=== PATIENT | male | born 1960 | race Caucasian/White ===

== ENCOUNTER 2017-11-09 23:00 | Inpatient (IN) | payer MEDICARE, MEDICAID ==
--- NOTE | 2017-11-09 23:28 | ED Physician Chart ---
ED Chief Complaint/HPI - Patient Information Date Seen:: 11/09/17 Time Seen:: 23:22 Chief Complaint:: Coffee ground emesis History of Present Illness:: 57 yo male was recently admitted to [facility] for ALOC. However, patient refused treatment and was discharged from the hospital to SNF today. At SNF, patient developed coffee ground emesis twice and was brought by BLS to ER for further evaluation and management. At ER, the patient did not have emesis. Allergies:: Allergies Allergy/AdvReac Type Severity Reaction Status Date / Time No Known Allergies Allergy Verified 11/09/17 23:04 Vitals:: Vital Signs - 8 hr 11/09/17 23:04 Temp 97.1 F HR 94 RR 18 BP 141/51 O2 Sat % 100 ED Review of Systems - Review of Systems General/Constitutional: No fever, No chills Skin: No bruising Head: No headache Eyes: No pain ENT: No nasal drainage Neck: No neck pain Cardio Vascular: No chest pain Pulmonary: No SOB GI: Vomiting Musculoskeletal: Bone or joint pain Neurological: Other (abnormal posture) ED Past Medical History - Past Medical History Past Medical History: HTN, 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), ESRD (dependent on renal dialysis), Seizures, Thyroid disorder, Other ( Hyperparathyroidism, chronic anemia) Social History: Non Smoker, No Alcohol, No Drug Use Surgical History: Cholecystectomy, other (vascular surgeries) Family Medical History - Family Member Mother History Unknown: Yes ED Physical Exam - Physical Examination Other Gen/Cons comments:: Abnormal posture Head: Atraumatic Eyes: PERRL Skin: No ecchymosis ENMT: Nasal exam nl Other Neck comments:: stiff neck Other Respiratory comments:: B/L rhonchi Cardio Vascular: RRR, No murmur, gallop, rubs, NL S1 S2 GI: Nondistended Other GI comments:: Tenderness Other Extremities comments:: AV fistula active at right inguinal area, old AV fistula on bilateral arms. Other Neuro/Psych comments:: Oriented to self only ED Labs/Radiology/EKG Results - Radiology Results Results: CXR: no consolidation ED Assessment - Assessment General Assessment: Hematemesis Leukocytosis UTI Anemia ESRD on dialysis Assessment/Comments:: CBC, CMP, UA CXR, EKG CT abdomen Rocephimiriam Pisanoyl Admit to med surg for further evaluation and management ED Septic Shock - . Is Septic Shock (SBP<90, OR Lactate>4 mmol\L) present?: No - <6hrs of presentation: Vital Signs: Vital Signs - 8 hr 11/09/17 23:04 Temp 97.1 F HR 94 RR 18 BP 141/51 O2 Sat % 100 ED Reassessment (Disposition) - Reassessment Reassessment Condition:: Improved - Patient Disposition Discharge/Transfer:: Acute Care w/in this hosp Admitting Medical Physician:: Ryan Swan
[2017-11-09 23:29] LABS: HEMATOCRIT 27.1 % (41.0-60); MANUAL DIFF REQUIRED? YES; MEAN CELL VOLUME 95.4 fl (80-99); MEAN CORPUSCULAR HGB CONC 36.7 pg (28.0-36.0); PLATELET COUNT 229 Th/cmm (150-400); RED BLOOD COUNT 2.84 Mil/cmm (4.30-5.70); RED CELL DISTRIBUTION WIDTH 15.3 % (11.5-20.0)
[2017-11-09 23:44] LABS: WHITE BLOOD COUNT 14.4 Th/cmm (4.8-10.8)
[2017-11-09] MEDS ORDERED: cefTRIAXone 1 GM in Sodium Chloride 0.9% 50 ML IV ONE (23:46)
[2017-11-09] MEDS ORDERED: metroNIDAZOLE 500mg/NS 100mL 500 MG/100 ML BAG IV ONE (23:46)
[2017-11-09 23:57] LABS: ALBUMIN 3.8 gm/dL (4.2-5.5); ANION GAP 24.7 (7.0-16.0); BILIRUBIN,TOTAL 0.3 mg/dL (0.3-1.0); CALCIUM SERUM 10.1 mg/dL (8.6-10.3); CARBON DIOXIDE 21.7 mEq/L (21.0-31.0); GFR AFRICAN-AMERICAN 4.4 ml/min (>90); GFR NON AFRICAN-AMERICAN 3.6 ml/min; POTASSIUM SERUM 5.4 mEq/L (3.5-5.1); TOTAL PROTEIN,SERUM 7.7 gm/dL (6.0-8.3)
[2017-11-10 00:05] LABS: URINE MICROSCOPIC INDICATED? YES; URINE SOURCE RANDOM
[2017-11-10 00:07] LABS: URINE BILIRUBIN NEGATIVE (NEGATIVE); URINE BLOOD LARGE (NEGATIVE); URINE GLUCOSE (UA) 250 mg/dL (NEGATIVE); URINE KETONE NEGATIVE (NEGATIVE); URINE LEUKOCYTE ESTERASE SMALL (NEGATIVE); URINE NITRATE NEGATIVE (NEGATIVE); URINE PROTEIN >=300 mg/dL (NEGATIVE); URINE UROBILINOGEN 0.2 E.U./dL (0.2 - 1.0)
[2017-11-10 00:08] LABS: URINE CLARITY CLOUDY (CLEAR); URINE COLOR YELLOW
[2017-11-10 00:25] LABS: URINE BACTERIA FEW /hpf (NONE SEEN); URINE EPITHELIAL CELLS OCCASIONAL /lpf (FEW)
[2017-11-10 00:26] LABS: URINE OTHER CASTS 0-2 /LPF (NONE SEEN)
[2017-11-10 00:27] LABS: BAND NEUTROPHILE 2 % (0-10); LYMPHOCYTE 7 % (20-50); NEUTROPHILS 90 % (40-80); TOTAL CELLS COUNTED 100
[2017-11-10 00:28] LABS: MONOCYTE 1 % (2-10); PLATELET ESTIMATE ADEQUATE (NORMAL)
[2017-11-10 01:02] LABS: INR 0.97 (0.5-1.4); PROTHROMBIN TIME (TEST) 10.1 SECONDS (9.5-11.5)
[2017-11-10] MEDS ORDERED: metroNIDAZOLE 500mg/NS 100mL 500 MG/100 ML BAG IV ONE (01:05)
[2017-11-10 06:04] VITALS: BP 146/42
--- NOTE | 2017-11-10 08:09 | Diagnostic Imaging Report ---
CT abdomen and pelvis without intravenous contrast Indication: Abdominal pain, coffee ground emesis Comparison: None, Technique: Axial images were obtained from the lung bases to the bilateral proximal femurs without IV contrast. Coronal reconstructions were made. total DLP: 396, CTDI 7.7 FINDINGS: Exam is limited due to motion. Hypoventilatory atelectatic changes of the lung bases are noted. Assessment of solid organs is limited due to lack of IV contrast. No evidence of focal hepatic lesions. The patient is status post cholecystectomy. No focal splenic lesions. Splenic artery calcifications are noted. Limited assessment of the pancreas demonstrates no obvious focal lesions. Pancreatic atrophy is noted. No focal adrenal lesions. Bilateral renal cysts are noted in addition low-density lesions too small to characterize and suggestive of cysts. No hydronephrosis. Bilateral renal calcifications are noted. Bilateral renal atrophy is noted. The urinary bladder is underdistended, limiting its evaluation. Mild prominence of the urinary bladder wall. Heavy atherosclerotic vascular disease is noted. There is a vascular stent seen within the right common iliac vein. Right groin Vascular graft is noted. Under distention versus bowel wall thickening of the ascending colon is noted. No evidence of bowel obstruction. No free fluid or free air. No evidence of appendicitis. Small hiatal hernia seen with wall thickening seen in this region. Degenerative changes of the spine are noted. There is generalized abnormal bony mineralization. Multiple Schmorl's nodes are noted. IMPRESSION: No evidence of bowel obstruction. Under distention versus bowel wall thickening of the ascending colon. Inflammatory process/colitis cannot be excluded. Small hiatal hernia with wall thickening seen in this region. Inflammatory or infiltrative process cannot be excluded Clinical correlation recommended. Underdistended urinary bladder limiting its evaluation. There is suggestion of mild thickening of urinary bladder wall. Inflammatory processes/UTI cannot be excluded. Please correlate with clinical findings. Heavy atherosclerotic vascular disease. Evidence of prior cholecystectomy. Bilateral renal atrophy and bilateral renal cysts. Right iliac vein stent and partially visualized right lower extremity arterial graft. Abnormal bony mineralization which may be due to chronic dialysis and renal osteodystrophy. Final results were administered to the referring team on 11/11/2015 at 8:00 AM.
--- NOTE | 2017-11-10 08:16 | Diagnostic Imaging Report ---
Portable chest x-ray HISTORY: Cough The heart is enlarged. Atherosclerotic calcification seen in the aorta. No acute focal pulmonary processes. A vascular stent is noted in the right subclavian region. IMPRESSION: 1. No acute pulmonary processes 2. Cardiomegaly with atherosclerotic vascular changes
[2017-11-10] MEDS ORDERED: Pantoprazole 40 mg EC Tab PO SCH ×2 (09:00→17:00)
[2017-11-10] MEDS: Vitamin B Complex w/Vitamin C Tab PO SCH (09:53)
[2017-11-10] MEDS: Atorvastatin Calcium 10 MG TAB PO SCH (09:53)
[2017-11-10] MEDS: Aspirin 81mg Chewable Tab PO SCH (09:53)
[2017-11-10 10:48] LABS: BASOPHILE ABSOLUTE 0.1 Th/cumm (0-0.2); HEMOGLOBIN 9.9 gm/dL (12-16); LYMPHOCYTE ABSOLUTE 0.8 Th/cmm (1.5-3.0); MEAN CELL VOLUME 96.5 fl (80-99); MEAN CORPUSCULAR HEMOGLOBIN 31.8 pg (26.0-30.0); MEAN PLATELET VOLUME 9.2 fl; MONOCYTE ABSOLUTE 0.7 Th/cmm (0.3-1.0); NEUTROPHILE ABSOLUTE 11.2 Th/cmm (1.8-8.0); PLATELET COUNT 201 Th/cmm (150-400); RED BLOOD COUNT 3.11 Mil/cmm (4.30-5.70); RED CELL DISTRIBUTION WIDTH 14.9 % (11.5-20.0)
[2017-11-10 10:51] LABS: WHITE BLOOD COUNT 12.8 Th/cmm (4.8-10.8)
[2017-11-10 11:03] LABS: ALBUMIN 3.6 gm/dL (4.2-5.5); ANION GAP 25.1 (7.0-16.0); BILIRUBIN,TOTAL 0.3 mg/dL (0.3-1.0); CALCIUM SERUM 9.9 mg/dL (8.6-10.3); CARBON DIOXIDE 19.3 mEq/L (21.0-31.0); GFR AFRICAN-AMERICAN 4.1 ml/min (>90); GFR NON AFRICAN-AMERICAN 3.4 ml/min; POTASSIUM SERUM 5.4 mEq/L (3.5-5.1); TOTAL PROTEIN,SERUM 7.2 gm/dL (6.0-8.3)
[2017-11-10 11:19] LABS: TOTAL CELLS COUNTED 100
[2017-11-10 11:20] LABS: BAND NEUTROPHILE 2 % (0-10); LYMPHOCYTE 13 % (20-50); NEUTROPHILS 85 % (40-80)
--- NOTE | 2017-11-10 12:52 | History and Physical ---
History of Present Illness - HPI Chief Complaint: Coffe ground hemesis HPI: Patient was send to [facility] due to ALOC, but he refused treatment he was send back to SNF and had 2 coffee ground hemesis. He was send to ER for Eval. During ER examination Patient did not had Hemesis but was found Leukocytosis and UTI Vital Signs: Last Vital Signs Temp 98.2 F 11/10/17 12:00 Pulse 88 11/10/17 12:00 Resp 17 11/10/17 12:00 BP 157/64 11/10/17 12:00 Pulse Ox 97 11/10/17 12:00 Past Medical History Cardiovascular: Report: CAD, CHF, HTN Pulmonary: Report: No Pertinent Hx HAND CARVER: Report: Dementia GI: Report: Other (Coffe ground hemesis) Psych: Report: Depression Musculoskeletal: Report: Weakness Rheumatologic: Report: No pertinent Hx Infectious Disease: Report: No Pertinent Hx Renal/: Report: Other (ESRD) Endocrine: Report: Diabetes, Hypothyroidism Dermatology: Report: No Pertinent Hx - Past Surgical History Past Surgical History: Other (AV shunt) Family Medical History - Family Member Mother History Unknown: Yes Social History Smoke: No Alcohol: None Drugs: None [facility] Domestic Violence: Negative - Medications Home Medications: Home Medication Medication Instructions Recorded Type Aspirin 81 mg PO DAILY 11/09/17 History Atorvastatin Calcium [Lipitor] 20 mg PO DAILY 11/09/17 History Cinacalcet HCl [Sensipar] 60 mg PO DAILY 11/09/17 History Folic Acid/Vit Bcomp,C 1 tab PO DAILY 11/09/17 History [Nephro-Alcon Tablet] Hydralazine HCl 50 mg PO BID 11/09/17 History Isosorbide Dinitrate 20 mg PO DAILY 11/09/17 History Metoclopramide [Reglan] 5 mg PO TID PRN 11/09/17 History Metoprolol Tartrate 25 mg PO BID 11/09/17 History Mirtazapine [Remeron] 7.5 mg PO HS 11/09/17 History Pantoprazole [Protonix] 40 mg PO DAILY 11/09/17 History amLODIPine Besylate [Norvasc*] 10 mg PO DAILY 11/09/17 History - Allergies Allergies/Adverse Reactions: Allergies Allergy/AdvReac Type Severity Reaction Status Date / Time No Known Allergies Allergy Verified 11/09/17 23:04 Review of Systems - Review of Systems Constitutional: Report: No Significant Eyes: Report: No Significant ENT: Report: No Significant Respiratory: Report: No Significant Cardiovascular: Report: No Significant Gastrointestinal: Report: Vomiting Genitourinary: Report: No Significant Musculoskeletal: Report: Other (Muscle weakness) Skin: Report: No Significant Neurological: Report: Weakness, Other (Patient is confused) Physical Exam - Physical Exam HEENT: Report: Ears Nose Throat within normal limits Neck: Report: Within normal limits Cardiovascular Systems: Report: Regular, Rate and Rhythm Respiratory: Report: Breath Sounds are within normal limits Abdomen: Report: Non-tender to palpation Back: Report: Inspection of back is within normal limits. Extremities: Report: Non-tender to palpation. Skin: Report: Color of skin is within normal limits, Warm Neuro/Psych: Report: Other (Patient is confused, not oriented) - Lab Results All Lab Results last 24 hours: Laboratory Results - last 24 hr 11/10/17 11/10/17 11/10/17 10:39 10:39 10:39 WBC 12.8 H RBC 3.11 L Hgb 9.9 L Hct 30.0 L MCV 96.5 MCH 31.8 H MCHC Differential 33.0 RDW 14.9 Plt Count 201 MPV 9.2 Neutrophils % FLOOR INSTALLATION MECHANIC Band Neutrophils % 2 Lymphocytes % FLOOR INSTALLATION MECHANIC Monocytes % FLOOR INSTALLATION MECHANIC Eosinophils % FLOOR INSTALLATION MECHANIC Basophils % FLOOR INSTALLATION MECHANIC Neutrophils (Manual) 85 H Lymphocytes 13 L Sodium 140 Potassium 5.4 H Chloride 101 Carbon Dioxide 19.3 L Anion Gap 25.1 H BUN 76 H Creatinine 15.8 H* Est GFR ( Amer) 4.1 Est GFR (Non-Af Amer) 3.4 BUN/Creatinine Ratio 4.8 Glucose 79 Calcium 9.9 Total Bilirubin 0.3 AST 26 ALT 17 Alkaline Phosphatase 105 H Total Protein 7.2 Albumin 3.6 L Globulin 3.6 Albumin/Globulin Ratio 1.0 TSH 2.95 - Assessment Assessment: Patient is awake, alert, confused, not oriented. Dx: Coffe ground hemesis, UTI , Leukocytosis, Chronic anemia, HTN, DM, ESRD on HD, Seizure disorder, Thyroid disorder. - Plan Plan: Patient in IV NS, AB, continue with SNF meds. Consult with Nephro and GI requested. Will continue to monitor.
--- NOTE | 2017-11-10 17:24 | Consultation ---
DATE OF CONSULTATION: 11/10/2017 INPATIENT GI CONSULTATION CONSULTING PHYSICIAN: Dr. Ryan Swan. REASON FOR CONSULTATION: Coffee-ground emesis. HISTORY OF PRESENT ILLNESS: The patient is a 57-year-old male with past medical history significant for hypertension; type 2 diabetes; end-stage renal disease, on dialysis; seizure disorder, who was admitted to the hospital from his nursing facility after witnessed coffee-ground emesis. The patient was recently admitted to [facility] with altered level of consciousness; however, apparently, he did not allow for evaluation at that time and was transferred to his snf facility. At the snf facility, he was witnessed to have coffee-ground emesis twice and was brought into the ER for this reason. The patient was not witnessed to have any coffee-ground emesis since arrival in the hospital. At the current time, the patient does not want to participate in the interview and just yells when I try to speak with him. PAST MEDICAL HISTORY: End-stage renal disease, on hemodialysis; type 2 diabetes; hypertension; seizure disorder; thyroid disorder. PAST SURGICAL HISTORY: Unknown. FAMILY HISTORY: Noncontributory. SOCIAL HISTORY: The patient lives at a nursing facility. At the moment, there is no documented history of alcohol or cigarette use or illicit drugs. REVIEW OF SYSTEMS: Not possible given that the patient is not participating with the interview at this time. CURRENT MEDICATIONS: Include amlodipine, aspirin, Lipitor, ceftriaxone, Sensipar, hydralazine, Isordil, Reglan, Remeron, Protonix daily dosing, vitamin B and vitamin C. PHYSICAL EXAMINATION: VITAL SIGNS: Blood pressure is 165/78, pulse 101 beats per minute. GENERAL: The patient is lying on his side in bed flat. He is alert and oriented x 0. He does not appear to be in distress. HEAD, EARS, EYES, NOSE AND THROAT: Normocephalic and atraumatic appearing head. The patient's eyes are closed, he does not want to open them for me. He has moist mucous membranes on inspection. NECK: Supple. No JVD or obvious thyromegaly. CHEST: Reduced breath sounds at the bases. CARDIOVASCULAR: S1 and S2 are present. Regular rate and rhythm. ABDOMEN: Soft. There is no obvious tenderness to palpation. No obvious guarding or rebound. EXTREMITIES: Pitting edema to the ankles bilaterally. Pulses are not present. SKIN: No obvious jaundice or cyanosis. LABORATORY DATA: Laboratories show white blood cell count 12.8, hemoglobin 9.9, platelet count is 201. INR 0.9. Sodium 140, BUN 76, creatinine 15.8. Total bilirubin 0.3, AST 26, ALT 17, alkaline phosphatase 105, lipase 52. TSH 2.9. IMAGING: The patient underwent abdomen and pelvis CT scan without contrast and shows no evidence of a bowel obstruction, underdistention of the bowel. There is a small hiatal hernia with some wall thickening seen in the region of the hiatal hernia, atherosclerotic disease is noted, evidence of prior cholecystectomy. IMPRESSION: This is a 57-year-old male with past medical history significant for end-stage renal disease, on hemodialysis; type 2 diabetes; hypertension; psychosis, who is transferred to the hospital after witnessed coffee-ground emesis at his nursing facility. 1. Coffee-ground emesis. 2. Anemia. 3. End-stage renal disease, on hemodialysis. 4. Hypertension. 5. Thyroid disorder. 6. Possible dementia versus behavioral disorder. DISCUSSION: Although the patient has not had any witnessed coffee-ground emesis here at the hospital, this is the report from his nursing facility. An EGD is certainly indicated to further examine the cause of the coffee-ground emesis. In addition, the patient had CT scan showing some possible thickening in the hiatal hernia and thus an endoscopy would elucidate this area as well. The patient is not able to consent for himself and is not able to really meaningful interact with the interview today at all. Thus, we will try to obtain the consent for this procedure via his healthcare proxy if possible. RECOMMENDATIONS: 1. We will attempt to schedule EGD tomorrow if we can obtain consent. 2. We will change the PPI to twice daily dosing. 3. Cycle the CBC and transfuse to keep hemoglobin above 8. 4. Clear liquids and n.p.o. at midnight. Thank you for allowing me to participate in this patient's care. Please call with any further questions. JOB# [id number]
[2017-11-11] MEDS ORDERED: Albumin 25% 25gm/100mL 25 GM/100 ML BTL IV PRN
[2017-11-11] MEDS ORDERED: cefTRIAXone 1 GM in Sodium Chloride 0.9% 50 ML IV SCH (01:00)
--- NOTE | 2017-11-11 02:58 | Consultation ---
DATE OF CONSULTATION: 11/10/2017 REASON FOR CONSULTATION: Electrolyte imbalance and fluid management. HISTORY OF PRESENT ILLNESS: This is a 57-year-old male with past medical history of end-stage renal disease, on hemodialysis, was brought in because of coffee-ground vomitus. A few hours prior to admission, the patient had 2 episodes of coffee-ground vomitus at [facility]. He was then brought to the Emergency Room. His hemoglobin/hematocrit were 9.9/30 with a white count of 12.8. There was no episode of vomiting at the Emergency Room. Urinalysis was suggestive of uncomplicated UTI. CT scan of the abdomen revealed no obstruction. He had no fever or chills, cough, diarrhea, or abdominal pain. PAST MEDICAL HISTORY: 1. End-stage renal disease, on hemodialysis. 2. Coronary artery disease. 3. CHF. 4. Essential hypertension. 5. Alzheimer dementia. 6. Type 2 diabetes mellitus. 7. Hypothyroidism. 8. Depression. 9. Epilepsy. CURRENT MEDICATIONS: Currently on amlodipine, aspirin, atorvastatin, ceftriaxone, Sensipar, hydralazine, isosorbide, metoclopramide, metoprolol, metronidazole, mirtazapine, and pantoprazole. ALLERGIES: No known drug allergies. SOCIAL AND FAMILY HISTORY: Unable to obtain from the patient because he is currently uncooperative. REVIEW OF SYSTEMS: Again, I was not able to decipher directly from the patient because he is a little bit agitated and uncooperative at the present time. PHYSICAL EXAMINATION: GENERAL: The patient as mentioned is uncooperative, slightly agitated, disoriented. VITAL SIGNS: His blood pressure is 157/64, pulse 88, and temperature 98.2 degrees. SKIN: Good turgor, warm, no rash, no jaundice appreciated. HEENT: Head normocephalic, atraumatic. Eyes: Extraocular muscles intact. Pupils equal, round, reactive to light and accommodate. Anicteric sclerae. Pale conjunctivae. Nose, midline nasal septum. Mouth: Dry mucosa with poor dentition. NECK: Supple, no adenopathy, no thyromegaly, no bruits. Trachea palpated in the midline. CHEST AND CARDIOVASCULAR: S1, S2. No rub, murmur, no gallop appreciated. Point of maximal impulse fifth intercostal space, left midclavicular line. No abdominal or femoral bruits appreciated. LUNGS: Equal expansion. No use of accessory muscles. No supraclavicular retractions. Decreased breath sounds, few rhonchi, but no rales nor wheezes appreciated. ABDOMEN: Flat and soft. Positive for bowel sounds. No bruits either diastolic or systolic. RECTAL: Lax sphincter tone. GENITOURINARY: Normal appearing male genitalia, presence of right thigh AV fistula. NEUROLOGIC: The patient is alert, verbal, motor is 5/5. Cranial nerves II through XII intact. Sensory intact. LABORATORY DATA: Revealed white count of 7.8, hemoglobin 9.9, hematocrit 30, platelets is 201, polys 85%. Sodium 140, potassium 5.4, chloride 101, bicarbonate 19.3, BUN 76, creatinine 15.8, glucose 79, calcium 9.9, and albumin 3.6. IMPRESSION: 1. End-stage renal disease, on hemodialysis. 2. Coffee-ground emesis, possibly upper gastrointestinal bleed, but stable at this point. 3. Uremic encephalopathy. 4. Possible uncomplicated urinary tract infection. 5. Coronary artery disease. 6. History of congestive heart failure. 7. Essential hypertension. 8. Alzheimer dementia. 9. Type 2 diabetes mellitus. 10. Hypothyroidism. 11. Depression. 12. Epilepsy. 13. Moderate malnutrition. PLAN: 1. Hemodialysis as scheduled. 2. Monitor hemoglobin/hematocrit. 3. Agree with GI consult. 4. Continue with ____. 5. Discontinue aspirin. Thank you, Dr. Swan for this consult. We will follow the patient closely with you. JOB# [id number]
[2017-11-11 08:11] LABS: HEMATOCRIT 30.9 % (41.0-60); HEMOGLOBIN 10.5 gm/dL (12-16); MEAN CELL VOLUME 94.4 fl (80-99); MEAN CORPUSCULAR HEMOGLOBIN 32.2 pg (26.0-30.0); MEAN CORPUSCULAR HGB CONC 34.2 pg (28.0-36.0); MEAN PLATELET VOLUME 8.9 fl; PLATELET COUNT 179 Th/cmm (150-400); RED BLOOD COUNT 3.27 Mil/cmm (4.30-5.70); RED CELL DISTRIBUTION WIDTH 14.9 % (11.5-20.0)
[2017-11-11 08:13] LABS: MANUAL DIFF REQUIRED? YES; WHITE BLOOD COUNT 14.4 Th/cmm (4.8-10.8)
[2017-11-11 08:23] LABS: CREATININE - SERUM 15.8 mg/dL (0.7-1.3)
[2017-11-11 08:37] LABS: ALBUMIN 3.7 gm/dL (4.2-5.5); BILIRUBIN,TOTAL 0.4 mg/dL (0.3-1.0); CALCIUM SERUM 9.7 mg/dL (8.6-10.3); CARBON DIOXIDE 22.4 mEq/L (21.0-31.0); GFR AFRICAN-AMERICAN 5.1 ml/min (>90); GFR NON AFRICAN-AMERICAN 4.2 ml/min; POTASSIUM SERUM 4.4 mEq/L (3.5-5.1); TOTAL PROTEIN,SERUM 7.5 gm/dL (6.0-8.3)
[2017-11-11 08:38] LABS: INR 1.01 (0.5-1.4); PROTHROMBIN TIME (TEST) 10.5 SECONDS (9.5-11.5)
[2017-11-11 08:40] LABS: CREATININE - SERUM 13.1 mg/dL (0.7-1.3)
[2017-11-11 08:52] LABS: BAND NEUTROPHILE 1 % (0-10); LYMPHOCYTE 9 % (20-50); MONOCYTE 5 % (2-10); NEUTROPHILS 85 % (40-80); TOTAL CELLS COUNTED 100
[2017-11-11 08:53] LABS: PLATELET ESTIMATE ADEQUATE (NORMAL)
--- NOTE | 2017-11-11 08:56 | General Progress Note ---
Subjective - Review of Systems Service Date: 11/11/17 Subjective: Patient is confused Objective - Results Result Diagrams: 11/11/17 07:56 11/11/17 07:56 Recent Labs: Laboratory Last Values WBC 14.4 Th/cmm (4.8-10.8) H 11/11/17 07:56 RBC 3.27 Mil/cmm (4.30-5.70) L 11/11/17 07:56 Hgb 10.5 gm/dL (12-16) L 11/11/17 07:56 Hct 30.9 % (41.0-60) L 11/11/17 07:56 MCV 94.4 fl (80-99) 11/11/17 07:56 MCH 32.2 pg (26.0-30.0) H 11/11/17 07:56 MCHC Differential 34.2 pg (28.0-36.0) 11/11/17 07:56 RDW 14.9 % (11.5-20.0) 11/11/17 07:56 Plt Count 179 Th/cmm (150-400) 11/11/17 07:56 MPV 8.9 fl 11/11/17 07:56 Neutrophils % FACILITIES MAINTENANCE TECHNICIAN 11/10/17 10:39 Band Neutrophils % 2 % (0-10) 11/10/17 10:39 Lymphocytes % FACILITIES MAINTENANCE TECHNICIAN 11/10/17 10:39 Monocytes % FACILITIES MAINTENANCE TECHNICIAN 11/10/17 10:39 Eosinophils % FACILITIES MAINTENANCE TECHNICIAN 11/10/17 10:39 Basophils % FACILITIES MAINTENANCE TECHNICIAN 11/10/17 10:39 Neutrophils (Manual) 85 % (40-80) H 11/10/17 10:39 Lymphocytes 13 % (20-50) L 11/10/17 10:39 Monocytes 1 % (2-10) L 11/09/17 23:23 Platelet Estimate ADEQUATE (NORMAL) 11/09/17 23:23 PT 10.1 SECONDS (9.5-11.5) 11/10/17 00:37 INR 0.97 (0.5-1.4) 11/10/17 00:37 PTT (Actin FS) 22.4 SECONDS (26.0-38.0) L 11/10/17 00:37 Sodium 140 mEq/L (136-145) 11/11/17 07:56 Potassium 4.4 mEq/L (3.5-5.1) 11/11/17 07:56 Chloride 100 mEq/L (98-107) 11/11/17 07:56 Carbon Dioxide 22.4 mEq/L (21.0-31.0) 11/11/17 07:56 Anion Gap 22.0 (7.0-16.0) H 11/11/17 07:56 BUN 55 mg/dL (7-25) H 11/11/17 07:56 Creatinine 13.1 mg/dL (0.7-1.3) H* 11/11/17 07:56 Est GFR ( Amer) 5.1 ml/min (>90) 11/11/17 07:56 Est GFR (Non-Af Amer) 4.2 ml/min 11/11/17 07:56 BUN/Creatinine Ratio 4.2 11/11/17 07:56 Glucose 83 mg/dL (70-105) 11/11/17 07:56 Whole Bld Lactic Acid 0.89 mmol/L (0.60-1.99) 11/10/17 00:37 Calcium 9.7 mg/dL (8.6-10.3) 11/11/17 07:56 Total Bilirubin 0.4 mg/dL (0.3-1.0) 11/11/17 07:56 AST 46 U/L (13-39) H 11/11/17 07:56 ALT 24 U/L (7-52) 11/11/17 07:56 Alkaline Phosphatase 109 U/L (34-104) H 11/11/17 07:56 Ammonia 24 umol/L (16-53) 11/10/17 17:06 Total Protein 7.5 gm/dL (6.0-8.3) 11/11/17 07:56 Albumin 3.7 gm/dL (4.2-5.5) L 11/11/17 07:56 Globulin 3.8 gm/dL 11/11/17 07:56 Albumin/Globulin Ratio 1.0 (1.0-1.8) 11/11/17 07:56 Lipase 52 U/L (11-82) 11/09/17 23:23 TSH 2.95 uIU/ml (0.34-5.60) 11/10/17 10:39 Urine Source RANDOM 03/27/18 23:40 Urine Color YELLOW 11/09/17 23:40 Urine Clarity CLOUDY (CLEAR) 11/09/17 23:40 Urine pH 7.0 (4.6 - 8.0) 11/09/17 23:40 Ur Specific Clio 1.020 (1.005-1.030) 11/09/17 23:40 Urine Protein >=300 mg/dL (NEGATIVE) 11/09/17 23:40 Urine Glucose (UA) 250 mg/dL (NEGATIVE) H 11/09/17 23:40 Urine Ketones NEGATIVE mg/dL (NEGATIVE) 11/09/17 23:40 Urine Blood LARGE (NEGATIVE) H 11/09/17 23:40 Urine Nitrate NEGATIVE (NEGATIVE) 11/09/17 23:40 Urine Bilirubin NEGATIVE (NEGATIVE) 11/09/17 23:40 Urine Urobilinogen 0.2 E.U./dL (0.2 - 1.0) 11/09/17 23:40 Ur Leukocyte Esterase SMALL (NEGATIVE) H 11/09/17 23:40 Urine RBC 5-10 /hpf (0-5) H 11/09/17 23:40 Urine WBC 2-5 /hpf (0-5) 11/09/17 23:40 Ur Epithelial Cells OCCASIONAL /lpf (FEW) 11/09/17 23:40 Urine Bacteria FEW /hpf (NONE SEEN) 11/09/17 23:40 Other Casts 0-2 /LPF (NONE SEEN) 11/09/17 23:40 - Physical Exam Vitals and I&O: Vital Signs Temp 98 F 11/11/17 04:00 Pulse 98 11/11/17 04:00 Resp 18 11/11/17 04:00 BP 113/54 11/11/17 04:00 Pulse Ox 95 11/11/17 04:00 Intake & Output 11/10/17 11/11/17 11/11/17 18:59 06:59 18:59 Intake Total 0 0 Balance 0 0 Weight (lbs) 57.425 kg 57.425 kg Intake: Oral 0 0 Other: # Voids 0 0 Weight Source Bedscale Bedscale Active Medications: Current Medications Amlodipine Besylate (Norvasc) 10 mg PO DAILY [place] Stop: 01/09/18 08:59 Last Admin: 11/10/17 09:47 Dose: 10 mg Aspirin (Aspirin Chewable) 81 mg PO DAILY [place] Stop: 01/09/18 08:59 Last Admin: 11/10/17 09:53 Dose: 81 mg Atorvastatin Calcium (Lipitor) 20 mg PO DAILY [place] Stop: 01/09/18 08:59 Last Admin: 11/10/17 09:53 Dose: 20 mg Cinacalcet (Sensipar) 60 mg PO DAILY [place] Stop: 01/09/18 08:59 Last Admin: 11/10/17 09:54 Dose: 60 mg Hydralazine HCl (Apresoline) 50 mg PO BID [place] Stop: 01/09/18 08:59 Last Admin: 11/10/17 17:14 Dose: Not Given Ceftriaxone Sodium 1 gm/ (Dextrose) 50 mls @ 100 mls/hr IV Q24H [place] Stop: 01/10/18 00:59 Last Admin: 11/11/17 00:33 Dose: 100 mls/hr Albumin Human (Albuminar 25%) 25 gm in 100 mls @ 50 mls/hr IV PRN PRN PRN Reason: BP Support During HD Isosorbide Dinitrate (Isordil) 20 mg PO DAILY [facility] Stop: 01/09/18 08:59 Last Admin: 11/10/17 09:53 Dose: 20 mg Lorazepam (Ativan) 2 mg IVP Q3HR PRN; Protocol PRN Reason: Agitation Stop: 01/09/18 16:58 Last Admin: 11/10/17 17:20 Dose: 2 mg Metoclopramide HCl (Reglan) 5 mg PO TID PRN PRN Reason: GI DISTRESS Stop: 01/09/18 07:29 Metoprolol Tartrate (Lopressor) 25 mg PO BID [facility] Stop: 01/09/18 08:59 Last Admin: 11/10/17 17:19 Dose: Not Given Mirtazapine (Remeron) 7.5 mg PO HS [facility] PRN Reason: Protocol Stop: 01/09/18 20:59 Pantoprazole Sodium (Protonix) 40 mg PO BID [facility] Stop: 01/09/18 16:59 Last Admin: 11/10/17 17:14 Dose: Not Given Vitamin B Complex/Vit C/Folic Acid (Vitamin B Complex W/Vitamin C) 1 tab PO DAILY [facility] Stop: 01/09/18 08:59 Last Admin: 11/10/17 09:53 Dose: 1 tab General: Other (Confused) HEENT: Atraumatic Cardiovascular: Regular rate Lungs: Other (Rude respiration) Abdomen: Bowel sounds, Soft Extremities: Other (No edema) Neurological: Other (Non ambulatory) Psych/Mental Status: Other (Confused, not oriented) Assessment/Plan - Assessment Assessment: Patient is awake, alert, confused, not oriented. WBC still high, HD done yesterday, Today Upper endoscopy will be done. Dx: Coffe ground hemesis, UTI, Leukocytosis, Chronic anemia, HTN, DM, ESRD on HD, Seizure disorder, Thyroid disorder. - Plan Plan: Patient in IV NS, AB, continue with SNF meds. Follow by Nephro and GI, ID consult requested. Will continue to monitor.
[2017-11-11] MEDS: Atorvastatin Calcium 10 MG TAB PO SCH (11:29)
[2017-11-11] MEDS: Aspirin 81mg Chewable Tab PO SCH (11:29)
[2017-11-11] MEDS: Vitamin B Complex w/Vitamin C Tab PO SCH (11:30)
--- NOTE | 2017-11-11 12:34 | Operative Report ---
DATE OF SURGERY: 11/11/2017 INPATIENT EGD REPORT PROCEDURE PERFORMED: EGD. ENDOSCOPIST: Ash Gtz MD PREOPERATIVE DIAGNOSIS: Coffee-ground emesis. POSTOPERATIVE DIAGNOSES: Esophagitis and gastritis. INDICATIONS: The patient is a 57-year-old male, who is permanent resident of a nursing facility, who was noted to have at least 2 episodes of coffee-ground emesis witnessed at his nursing facility and thus was transferred to the hospital for further evaluation. He is now here for EGD. CONSENT: Informed consent was obtained from the patient's healthcare proxy. The risks and benefits of the procedure were discussed and include but are not limited to infection, bleeding, perforation, need for surgery, cardiopulmonary complications, missed pathology, and . The patient indicates understanding of these risks. The patient's healthcare proxy indicated their understanding of these risks and wished to go forward with the procedure and signed a consent form. ANESTHESIA: The procedure was performed in the main operating room under the care of a general anesthesiologist. PROCEDURE IN DETAIL: After the initiation of general anesthesia, the patient was kept in the supine position and a mouthpiece was inserted and secured. Next, the gastroscope was introduced into the mouth and guided under direct visualization into the stomach and duodenum and esophagus. The scope was then slowly withdrawn making sure to examine the entire mucosa in a careful and systematic fashion. Retroflexion was performed in the stomach prior to scope straightening and withdrawal from the body. No obvious sign of complication was observed at the end of the procedure. FINDINGS: ESOPHAGUS: In the mid esophagus level, there was friability of the mucosa. This appeared endoscopically like esophagitis. This area was flushed and examined very carefully and there was no visible vessel or active bleeding, although the area was friable and oozed blood on contact with the scope. In the distal esophagus, the GE junction was found at 42 cm from the incisors. There did appear to be a 2-3 cm hiatal hernia in this area, although no ulceration or esophagitis was noted here. Given that there was no vessel and no active bleeding, no intervention was performed in the mid esophagus level. STOMACH: There was evidence of old blood in the stomach that was washed away. There was no ulceration or mass lesion otherwise seen in the gastric body, antrum, or fundus. DUODENUM: The duodenal bulb and second portion appeared endoscopically normal, although there was slight duodenitis in the duodenal bulb. IMPRESSION: 1. Esophagitis in the mid esophagus level, unknown origin. This is likely the source of the patient's coffee-ground emesis. This could be from retching repeatedly or less likely ischemia to that area. 2. Duodenitis. 3. Slight gastritis. RECOMMENDATIONS: 1. We will keep the patient on b.i.d. PPI therapy. He will need this for at least 2 months and then can be transitioned to daily PPI therapy. 2. We will also start the patient on Carafate today to help with the esophagitis in the mid esophagus level. 3. We will keep the patient n.p.o. today and he can start on clears tomorrow if there is no further emesis and his diet can then be advanced as tolerated. 4. I do recommend repeat EGD in 2 months' time to evaluate for healing of the esophagitis and look for any evidence of Padron's esophagus. I will continue to follow the patient. Thank you for allowing me to participate in his care. Please call with any further questions. JOB# [id number]
--- NOTE | 2017-11-11 13:44 | General Progress Note ---
Subjective - Review of Systems Service Date: 11/11/17 Subjective: sedated today Objective - Results Result Diagrams: 11/11/17 07:56 11/11/17 07:56 Recent Labs: Laboratory Last Values WBC 14.4 Th/cmm (4.8-10.8) H 11/11/17 07:56 RBC 3.27 Mil/cmm (4.30-5.70) L 11/11/17 07:56 Hgb 10.5 gm/dL (12-16) L 11/11/17 07:56 Hct 30.9 % (41.0-60) L 11/11/17 07:56 MCV 94.4 fl (80-99) 11/11/17 07:56 MCH 32.2 pg (26.0-30.0) H 11/11/17 07:56 MCHC Differential 34.2 pg (28.0-36.0) 11/11/17 07:56 RDW 14.9 % (11.5-20.0) 11/11/17 07:56 Plt Count 179 Th/cmm (150-400) 11/11/17 07:56 MPV 8.9 fl 11/11/17 07:56 Neutrophils % SECURITY ALARM INSTALLER 11/10/17 10:39 Band Neutrophils % 1 % (0-10) 11/11/17 07:56 Lymphocytes % SECURITY ALARM INSTALLER 11/10/17 10:39 Monocytes % SECURITY ALARM INSTALLER 11/10/17 10:39 Eosinophils % SECURITY ALARM INSTALLER 11/10/17 10:39 Basophils % SECURITY ALARM INSTALLER 11/10/17 10:39 Neutrophils (Manual) 85 % (40-80) H 11/11/17 07:56 Lymphocytes 9 % (20-50) L 11/11/17 07:56 Monocytes 5 % (2-10) 11/11/17 07:56 Platelet Estimate ADEQUATE (NORMAL) 11/11/17 07:56 PT 10.5 SECONDS (9.5-11.5) 11/11/17 07:56 INR 1.01 (0.5-1.4) 11/11/17 07:56 PTT (Actin FS) 22.4 SECONDS (26.0-38.0) L 11/10/17 00:37 Sodium 140 mEq/L (136-145) 11/11/17 07:56 Potassium 4.4 mEq/L (3.5-5.1) 11/11/17 07:56 Chloride 100 mEq/L (98-107) 11/11/17 07:56 Carbon Dioxide 22.4 mEq/L (21.0-31.0) 11/11/17 07:56 Anion Gap 22.0 (7.0-16.0) H 11/11/17 07:56 BUN 55 mg/dL (7-25) H 11/11/17 07:56 Creatinine 13.1 mg/dL (0.7-1.3) H* 11/11/17 07:56 Est GFR ( Amer) 5.1 ml/min (>90) 11/11/17 07:56 Est GFR (Non-Af Amer) 4.2 ml/min 11/11/17 07:56 BUN/Creatinine Ratio 4.2 11/11/17 07:56 Glucose 83 mg/dL (70-105) 11/11/17 07:56 Whole Bld Lactic Acid 0.89 mmol/L (0.60-1.99) 11/10/17 00:37 Calcium 9.7 mg/dL (8.6-10.3) 11/11/17 07:56 Total Bilirubin 0.4 mg/dL (0.3-1.0) 11/11/17 07:56 AST 46 U/L (13-39) H 11/11/17 07:56 ALT 24 U/L (7-52) 11/11/17 07:56 Alkaline Phosphatase 109 U/L (34-104) H 11/11/17 07:56 Ammonia 24 umol/L (16-53) 11/10/17 17:06 Total Protein 7.5 gm/dL (6.0-8.3) 11/11/17 07:56 Albumin 3.7 gm/dL (4.2-5.5) L 11/11/17 07:56 Globulin 3.8 gm/dL 11/11/17 07:56 Albumin/Globulin Ratio 1.0 (1.0-1.8) 11/11/17 07:56 Lipase 52 U/L (11-82) 11/09/17 23:23 TSH 2.95 uIU/ml (0.34-5.60) 11/10/17 10:39 Urine Source RANDOM 11/09/17 23:40 Urine Color YELLOW 11/09/17 23:40 Urine Clarity CLOUDY (CLEAR) 11/09/17 23:40 Urine pH 7.0 (4.6 - 8.0) 11/09/17 23:40 Ur Specific [place] 1.020 (1.005-1.030) 11/09/17 23:40 Urine Protein >=300 mg/dL (NEGATIVE) 11/09/17 23:40 Urine Glucose (UA) 250 mg/dL (NEGATIVE) H 11/09/17 23:40 Urine Ketones NEGATIVE mg/dL (NEGATIVE) 11/09/17 23:40 Urine Blood LARGE (NEGATIVE) H 11/09/17 23:40 Urine Nitrate NEGATIVE (NEGATIVE) 11/09/17 23:40 Urine Bilirubin NEGATIVE (NEGATIVE) 11/09/17 23:40 Urine Urobilinogen 0.2 E.U./dL (0.2 - 1.0) 11/09/17 23:40 Ur Leukocyte Esterase SMALL (NEGATIVE) H 11/09/17 23:40 Urine RBC 5-10 /hpf (0-5) H 11/09/17 23:40 Urine WBC 2-5 /hpf (0-5) 11/09/17 23:40 Ur Epithelial Cells OCCASIONAL /lpf (FEW) 11/09/17 23:40 Urine Bacteria FEW /hpf (NONE SEEN) 11/09/17 23:40 Other Casts 0-2 /LPF (NONE SEEN) 11/09/17 23:40 - Physical Exam Vitals and I&O: Vital Signs Temp 98.7 F 11/11/17 12:00 Pulse 68 11/11/17 13:01 Resp 17 11/11/17 12:00 BP 159/51 11/11/17 13:01 Pulse Ox 98 11/11/17 12:00 Intake & Output 11/10/17 11/11/17 11/11/17 18:59 06:59 18:59 Intake Total 0 0 Balance 0 0 Weight (lbs) 57.425 kg 57.425 kg Intake: Oral 0 0 Other: # Voids 0 0 Weight Source Bedscale Bedscale Active Medications: Current Medications Amlodipine Besylate (Norvasc) 10 mg PO DAILY [facility] Stop: 01/09/18 08:59 Last Admin: 11/11/17 11:28 Dose: Not Given Aspirin (Aspirin Chewable) 81 mg PO DAILY [facility] Stop: 01/09/18 08:59 Last Admin: 11/11/17 11:29 Dose: Not Given Atorvastatin Calcium (Lipitor) 20 mg PO DAILY [facility] Stop: 01/09/18 08:59 Last Admin: 11/11/17 11:29 Dose: Not Given Cinacalcet (Sensipar) 60 mg PO DAILY [facility] Stop: 01/09/18 08:59 Last Admin: 11/11/17 11:29 Dose: Not Given Hydralazine HCl (Apresoline) 50 mg PO BID [facility] Stop: 01/09/18 08:59 Last Admin: 11/11/17 11:29 Dose: Not Given Hydralazine HCl (Apresoline 20 Mg/Ml) 10 mg IV Q6HR PRN PRN Reason: SBP>160 Stop: 01/10/18 11:39 Last Admin: 11/11/17 12:01 Dose: 10 mg Ceftriaxone Sodium 1 gm/ (Dextrose) 50 mls @ 100 mls/hr IV Q24H [facility] Stop: 01/10/18 00:59 Last Admin: 11/11/17 00:33 Dose: 100 mls/hr Albumin Human (Albuminar 25%) 25 gm in 100 mls @ 50 mls/hr IV PRN PRN PRN Reason: BP Support During HD Isosorbide Dinitrate (Isordil) 20 mg PO DAILY [facility] Stop: 01/09/18 08:59 Last Admin: 11/11/17 11:30 Dose: Not Given Lorazepam (Ativan) 2 mg IVP Q3HR PRN; Protocol PRN Reason: Agitation Stop: 01/09/18 16:58 Last Admin: 11/10/17 17:20 Dose: 2 mg Metoclopramide HCl (Reglan) 5 mg PO TID PRN PRN Reason: GI DISTRESS Stop: 01/09/18 07:29 Metoprolol Tartrate (Lopressor) 25 mg PO BID [facility] Stop: 01/09/18 08:59 Last Admin: 11/11/17 11:30 Dose: Not Given Mirtazapine (Remeron) 7.5 mg PO HS [facility] PRN Reason: Protocol Stop: 01/09/18 20:59 Pantoprazole Sodium (Protonix) 40 mg IVP BID [facility] Stop: 01/10/18 16:59 Pantoprazole Sodium (Protonix) 40 mg IVP DAILY [facility] Stop: 01/11/18 08:59 Sucralfate (Carafate) 1 gm PO BID [facility] Stop: 01/10/18 16:59 Vitamin B Complex/Vit C/Folic Acid (Vitamin B Complex W/Vitamin C) 1 tab PO DAILY [facility] Stop: 01/09/18 08:59 Last Admin: 11/11/17 11:30 Dose: Not Given General: Other (Confused, agitated) HEENT: Atraumatic Cardiovascular: Regular rate Lungs: Clear to auscultation Abdomen: Bowel sounds, Soft Extremities: Other (No edema) Neurological: Other (Non ambulatory) Psych/Mental Status: Other (Confused, not oriented) Assessment/Plan - Assessment Assessment: ESRD on HD Esophagitis, Duodenitis, Gastritis Uremic Enceph UCx UTI CAD ESS HTN Type 2 DM Hx CHF - Plan Plan: Lab - Result Diagrams 11/11/17 07:56 11/11/17 07:56 Current Medications Amlodipine Besylate (Norvasc) 10 mg PO DAILY [facility] Stop: 01/09/18 08:59 Last Admin: 11/11/17 11:28 Dose: Not Given Aspirin (Aspirin Chewable) 81 mg PO DAILY [facility] Stop: 01/09/18 08:59 Last Admin: 11/11/17 11:29 Dose: Not Given Atorvastatin Calcium (Lipitor) 20 mg PO DAILY [facility] Stop: 01/09/18 08:59 Last Admin: 11/11/17 11:29 Dose: Not Given Cinacalcet (Sensipar) 60 mg PO DAILY [facility] Stop: 01/09/18 08:59 Last Admin: 11/11/17 11:29 Dose: Not Given Hydralazine HCl (Apresoline) 50 mg PO BID [facility] Stop: 01/09/18 08:59 Last Admin: 11/11/17 11:29 Dose: Not Given Hydralazine HCl (Apresoline 20 Mg/Ml) 10 mg IV Q6HR PRN PRN Reason: SBP>160 Stop: 01/10/18 11:39 Last Admin: 11/11/17 12:01 Dose: 10 mg Ceftriaxone Sodium 1 gm/ (Dextrose) 50 mls @ 100 mls/hr IV Q24H [facility] Stop: 01/10/18 00:59 Last Admin: 11/11/17 00:33 Dose: 100 mls/hr Albumin Human (Albuminar 25%) 25 gm in 100 mls @ 50 mls/hr IV PRN PRN PRN Reason: BP Support During HD Isosorbide Dinitrate (Isordil) 20 mg PO DAILY [facility] Stop: 01/09/18 08:59 Last Admin: 11/11/17 11:30 Dose: Not Given Lorazepam (Ativan) 2 mg IVP Q3HR PRN; Protocol PRN Reason: Agitation Stop: 01/09/18 16:58 Last Admin: 11/10/17 17:20 Dose: 2 mg Metoclopramide HCl (Reglan) 5 mg PO TID PRN PRN Reason: GI DISTRESS Stop: 01/09/18 07:29 Metoprolol Tartrate (Lopressor) 25 mg PO BID [facility] Stop: 01/09/18 08:59 Last Admin: 11/11/17 11:30 Dose: Not Given Mirtazapine (Remeron) 7.5 mg PO HS [facility] PRN Reason: Protocol Stop: 01/09/18 20:59 Pantoprazole Sodium (Protonix) 40 mg IVP BID [facility] Stop: 01/10/18 16:59 Pantoprazole Sodium (Protonix) 40 mg IVP DAILY [facility] Stop: 01/11/18 08:59 Sucralfate (Carafate) 1 gm PO BID [facility] Stop: 01/10/18 16:59 Vitamin B Complex/Vit C/Folic Acid (Vitamin B Complex W/Vitamin C) 1 tab PO DAILY [facility] Stop: 01/09/18 08:59 Last Admin: 11/11/17 11:30 Dose: Not Given Lab - Result Diagrams 11/11/17 07:56 11/11/17 07:56 schedule for HD in am
--- NOTE | 2017-11-11 14:02 | Consultation ---
Consult Note - Consult Note Service Date: 11/11/17 Referring Physician: Ryan Swan Consult Note: PHYSICIAN Consultation Note: Date of Admission: 11/10/17 Purpose of Consultation: Chief Complaint: Patient SUGEY TIMMONS was admitted to location Medical/Surgical Unit I with LEUKOCYTOSIS,UTI,HEMATEMESIS. History of Present Illness: 57 year old male with history of DM2, HTN, CKD 5 On HD presented to the [place] ER for ALOC. He was discharged back. He developed coffee ground emesis and brought to the ED fro further evaluation. On initial evaluation, rahat gill was afebrile and his wbc count was 12,k. CT scan of abd and pelvis suspected colitis. EGD revealed esophagitis and gastritis. Ceftriaxone was started and wbc count went up to 14K, so ID consult was called for antibiotic management. Past Medical History: DM2, HTN, CKD 5 On HD, legally blind. Dementia. Diagnoses ANEMIA, UNSPECIFIED (11/10/17) HYPOTHYROIDISM, UNSPECIFIED (11/10/17) TYPE 2 DIABETES MELLITUS W DIABETIC CHRONIC KIDNEY DISEASE (11/10/17) MODERATE PROTEIN-CALORIE MALNUTRITION (11/10/17) DEMENTIA IN OTH DISEASES CLASSD ELSWHR W/O BEHAVRL DISTURB (11/10/17) MAJOR DEPRESSIVE DISORDER, RECURRENT, UNSPECIFIED (11/10/17) ALZHEIMER'S DISEASE, UNSPECIFIED (11/10/17) EPILEPSY, UNSP, NOT INTRACTABLE, WITHOUT STATUS EPILEPTICUS (11/10/17) OTHER ENCEPHALOPATHY (11/10/17) HYP CHR KIDNEY DISEASE W STAGE 5 CHR KIDNEY DISEASE OR ESRD (11/10/17) ATHSCL HEART DISEASE OF [place] CORONARY ARTERY W/O ANG PCTRS (11/10/17) HEART FAILURE, UNSPECIFIED (11/10/17) GASTROINTESTINAL HEMORRHAGE, UNSPECIFIED (11/10/17) END STAGE RENAL DISEASE (11/10/17) URINARY TRACT INFECTION, SITE NOT SPECIFIED (11/10/17) DO NOT RESUSCITATE (11/10/17) BODY MASS INDEX (BMI) 19.9 OR LESS, ADULT (11/10/17) DEPENDENCE ON RENAL DIALYSIS (11/10/17) Allergies Allergy/AdvReac Type Severity Reaction Status Date / Time No Known Allergies Allergy Verified 11/09/17 23:04 Vital Signs Temp 98.7 F 11/11/17 12:00 Pulse 68 11/11/17 13:01 Resp 17 11/11/17 12:00 BP 159/51 11/11/17 13:01 Pulse Ox 98 11/11/17 12:00 Intake & Output 11/10/17 11/11/17 11/11/17 18:59 06:59 18:59 Intake Total 0 0 Balance 0 0 Weight (lbs) 57.425 kg 57.425 kg Intake: Oral 0 0 Other: # Voids 0 0 Weight Source [facility] Results - last 24 hr 11/10/17 11/10/17 11/11/17 10:39 17:06 07:56 WBC RBC Hgb Hct MCV MCH MCHC Differential RDW Plt Count MPV Band Neutrophils % Neutrophils (Manual) Lymphocytes Monocytes Platelet Estimate PT 10.5 INR 1.01 Sodium Potassium Chloride Carbon Dioxide Anion Gap BUN Creatinine 15.8 H* Est GFR ( Amer) Est GFR (Non-Af Amer) BUN/Creatinine Ratio Glucose Calcium Total Bilirubin AST ALT Alkaline Phosphatase Ammonia 24 Total Protein Albumin Globulin Albumin/Globulin Ratio 11/11/17 11/11/17 07:56 07:56 WBC 14.4 H RBC 3.27 L Hgb 10.5 L Hct 30.9 L MCV 94.4 MCH 32.2 H MCHC Differential 34.2 RDW 14.9 Plt Count 179 MPV 8.9 Band Neutrophils % 1 Neutrophils (Manual) 85 H Lymphocytes 9 L Monocytes 5 Platelet Estimate ADEQUATE PT INR Sodium 140 Potassium 4.4 Chloride 100 Carbon Dioxide 22.4 Anion Gap 22.0 H BUN 55 H Creatinine 13.1 H* Est GFR ( Amer) 5.1 Est GFR (Non-Af Amer) 4.2 BUN/Creatinine Ratio 4.2 Glucose 83 Calcium 9.7 Total Bilirubin 0.4 AST 46 H ALT 24 Alkaline Phosphatase 109 H Ammonia Total Protein 7.5 Albumin 3.7 L Globulin 3.8 Albumin/Globulin Ratio 1.0 Home Medication Medication Instructions Recorded Type Aspirin 81 mg PO DAILY 11/09/17 History Atorvastatin Calcium [Lipitor] 20 mg PO DAILY 11/09/17 History Cinacalcet HCl [Sensipar] 60 mg PO DAILY 11/09/17 History Folic Acid/Vit Bcomp,C 1 tab PO DAILY 11/09/17 History [Nephro-Alcon Tablet] Hydralazine HCl 50 mg PO BID 11/09/17 History Isosorbide Dinitrate 20 mg PO DAILY 11/09/17 History Metoclopramide [Reglan] 5 mg PO TID PRN 11/09/17 History Metoprolol Tartrate 25 mg PO BID 11/09/17 History Mirtazapine [Remeron] 7.5 mg PO HS 11/09/17 History Pantoprazole [Protonix] 40 mg PO DAILY 11/09/17 History amLODIPine Besylate [Norvasc*] 10 mg PO DAILY 11/09/17 History Current Medications Generic Name Dose Route Start Last Admin Trade Name Freq PRN Reason Stop Dose Admin Amlodipine Besylate 10 mg 11/10/17 09:00 11/11/17 11:28 Norvasc PO 01/09/18 08:59 Not Given DAILY [facility] Aspirin 81 mg 11/10/17 09:00 11/11/17 11:29 Aspirin Chewable PO 01/09/18 08:59 Not Given DAILY [facility] Atorvastatin Calcium 20 mg 11/10/17 09:00 11/11/17 11:29 Lipitor PO 01/09/18 08:59 Not Given DAILY [facility] Cinacalcet 60 mg 11/10/17 09:00 11/11/17 11:29 Sensipar PO 01/09/18 08:59 Not Given DAILY [facility] Hydralazine HCl 50 mg 11/10/17 09:00 11/11/17 11:29 Apresoline PO 01/09/18 08:59 Not Given BID [facility] Hydralazine HCl 10 mg 11/11/17 11:40 11/11/17 12:01 Apresoline 20 Mg/Ml IV 01/10/18 11:39 10 mg Q6HR PRN Administration SBP>160 Ceftriaxone Sodium 1 gm/ 50 mls @ 100 mls/hr 11/11/17 01:00 11/11/17 00:33 Dextrose IV 01/10/18 00:59 100 mls/hr Q24H [facility] Administration Albumin Human 25 gm in 100 mls @ 50 mls/hr 11/11/17 00:00 Albuminar 25% IV PRN PRN BP Support During HD Isosorbide Dinitrate 20 mg 11/10/17 09:00 11/11/17 11:30 Isordil PO 01/09/18 08:59 Not Given DAILY [facility] Lorazepam 2 mg 11/10/17 16:59 11/10/17 17:20 Ativan IVP 01/09/18 16:58 2 mg Q3HR PRN Administration Agitation Protocol Metoclopramide HCl 5 mg 11/10/17 07:30 Reglan PO 01/09/18 07:29 TID PRN GI DISTRESS Metoprolol Tartrate 25 mg 11/10/17 09:00 11/11/17 11:30 Lopressor PO 01/09/18 08:59 Not Given BID [facility] Mirtazapine 7.5 mg 11/10/17 21:00 Remeron PO 01/09/18 20:59 HS [facility] Protocol Pantoprazole Sodium 40 mg 11/11/17 17:00 Protonix IVP 01/10/18 16:59 BID [facility] Pantoprazole Sodium 40 mg 11/12/17 09:00 Protonix IVP 01/11/18 08:59 DAILY [facility] Sucralfate 1 gm 11/11/17 17:00 Carafate PO 01/10/18 16:59 BID [facility] Vitamin B Complex/Vit C/Folic Acid 1 tab 11/10/17 09:00 11/11/17 11:30 Vitamin B Complex W/Vitamin C PO 01/09/18 08:59 Not Given DAILY [facility] Review of Systems: A 12 point ROS was reviewed with the pertinent positive and negatives noted in the HPI. Social History Smoking Status Unknown if ever smoked Family Medical History Family Medical History Start: 11/10/17 03: 16 Freq: ONCE Status: Active Document 11/10/17 03:16 [email or web address] (Rec: 11/10/17 06:56 [email or web address] [facility] ) Family Medical History Mother History Unknown Yes Physical Exam: General: WN WD. HEENT: Head: NC NT. Oral cavity moist. Eyes blind,. Neck: supple no jvd, no carotid bruit. Cardio: S1 and S2 WNL. Respiratory: Vesicular BS. Abdominal: Soft NT ND BS+ Genital/Urinary: Extremities: NCCE. Neurological: Confused. Assessment: 1. Leukocytosis. 2. Colitis. 3. CKD 5 on HD. 4. DM2 5. HTN. 6. Encephalopathy. Plan: Conitnue rocephin and add flagyl. Signed, Akira Cook M.D. [id number]
[2017-11-11] MEDS: metroNIDAZOLE 500mg/NS 100mL 500 MG/100 ML BAG IV SCH (20:46)
[2017-11-12] MEDS: metroNIDAZOLE 500mg/NS 100mL 500 MG/100 ML BAG IV SCH ×3 (05:51→21:37)
--- NOTE | 2017-11-12 08:57 | GI Progress Note ---
Subjective - Review of Systems Service Date: 11/12/17 Subjective: Continue to have altered behavior, no further emesis Objective - Results Result Diagrams: 11/11/17 07:56 11/11/17 07:56 Recent Labs: Laboratory Last Values WBC 14.4 Th/cmm (4.8-10.8) H 11/11/17 07:56 RBC 3.27 Mil/cmm (4.30-5.70) L 11/11/17 07:56 Hgb 10.5 gm/dL (12-16) L 11/11/17 07:56 Hct 30.9 % (41.0-60) L 11/11/17 07:56 MCV 94.4 fl (80-99) 11/11/17 07:56 MCH 32.2 pg (26.0-30.0) H 11/11/17 07:56 MCHC Differential 34.2 pg (28.0-36.0) 11/11/17 07:56 RDW 14.9 % (11.5-20.0) 11/11/17 07:56 Plt Count 179 Th/cmm (150-400) 11/11/17 07:56 MPV 8.9 fl 11/11/17 07:56 Neutrophils % [employer] 11/10/17 10:39 Band Neutrophils % 1 % (0-10) 11/11/17 07:56 Lymphocytes % [employer] 11/10/17 10:39 Monocytes % [employer] 11/10/17 10:39 Eosinophils % [employer] 11/10/17 10:39 Basophils % [employer] 11/10/17 10:39 Neutrophils (Manual) 85 % (40-80) H 11/11/17 07:56 Lymphocytes 9 % (20-50) L 11/11/17 07:56 Monocytes 5 % (2-10) 11/11/17 07:56 Platelet Estimate ADEQUATE (NORMAL) 11/11/17 07:56 PT 10.5 SECONDS (9.5-11.5) 11/11/17 07:56 INR 1.01 (0.5-1.4) 11/11/17 07:56 PTT (Actin FS) 22.4 SECONDS (26.0-38.0) L 11/10/17 00:37 Sodium 140 mEq/L (136-145) 11/11/17 07:56 Potassium 4.4 mEq/L (3.5-5.1) 11/11/17 07:56 Chloride 100 mEq/L (98-107) 11/11/17 07:56 Carbon Dioxide 22.4 mEq/L (21.0-31.0) 11/11/17 07:56 Anion Gap 22.0 (7.0-16.0) H 11/11/17 07:56 BUN 55 mg/dL (7-25) H 11/11/17 07:56 Creatinine 13.1 mg/dL (0.7-1.3) H* 11/11/17 07:56 Est GFR ( Amer) 5.1 ml/min (>90) 11/11/17 07:56 Est GFR (Non-Af Amer) 4.2 ml/min 11/11/17 07:56 BUN/Creatinine Ratio 4.2 11/11/17 07:56 Glucose 83 mg/dL (70-105) 11/11/17 07:56 POC Glucose 115 MG/DL (70 - 105) H 11/12/17 05:07 Whole Bld Lactic Acid 0.89 mmol/L (0.60-1.99) 11/10/17 00:37 Calcium 9.7 mg/dL (8.6-10.3) 11/11/17 07:56 Total Bilirubin 0.4 mg/dL (0.3-1.0) 11/11/17 07:56 AST 46 U/L (13-39) H 11/11/17 07:56 ALT 24 U/L (7-52) 11/11/17 07:56 Alkaline Phosphatase 109 U/L (34-104) H 11/11/17 07:56 Ammonia 24 umol/L (16-53) 11/10/17 17:06 Total Protein 7.5 gm/dL (6.0-8.3) 11/11/17 07:56 Albumin 3.7 gm/dL (4.2-5.5) L 11/11/17 07:56 Globulin 3.8 gm/dL 11/11/17 07:56 Albumin/Globulin Ratio 1.0 (1.0-1.8) 11/11/17 07:56 Lipase 52 U/L (11-82) 11/09/17 23:23 TSH 2.95 uIU/ml (0.34-5.60) 11/10/17 10:39 Urine Source RANDOM 11/09/17 23:40 Urine Color YELLOW 11/09/17 23:40 Urine Clarity CLOUDY (CLEAR) 11/09/17 23:40 Urine pH 7.0 (4.6 - 8.0) 11/09/17 23:40 Ur Specific [place] 1.020 (1.005-1.030) 11/09/17 23:40 Urine Protein >=300 mg/dL (NEGATIVE) 11/09/17 23:40 Urine Glucose (UA) 250 mg/dL (NEGATIVE) H 11/09/17 23:40 Urine Ketones NEGATIVE mg/dL (NEGATIVE) 11/09/17 23:40 Urine Blood LARGE (NEGATIVE) H 11/09/17 23:40 Urine Nitrate NEGATIVE (NEGATIVE) 11/09/17 23:40 Urine Bilirubin NEGATIVE (NEGATIVE) 11/09/17 23:40 Urine Urobilinogen 0.2 E.U./dL (0.2 - 1.0) 11/09/17 23:40 Ur Leukocyte Esterase SMALL (NEGATIVE) H 11/09/17 23:40 Urine RBC 5-10 /hpf (0-5) H 11/09/17 23:40 Urine WBC 2-5 /hpf (0-5) 11/09/17 23:40 Ur Epithelial Cells OCCASIONAL /lpf (FEW) 11/09/17 23:40 Urine Bacteria FEW /hpf (NONE SEEN) 11/09/17 23:40 Other Casts 0-2 /LPF (NONE SEEN) 11/09/17 23:40 - Physical Exam Vitals and I&O: Vital Signs Temp 97.6 F 11/12/17 04:00 Pulse 88 11/12/17 04:00 Resp 21 11/12/17 04:00 BP 185/84 11/12/17 04:00 Pulse Ox 97 11/12/17 04:00 Intake & Output 11/11/17 11/12/17 11/12/17 18:59 06:59 18:59 Intake Total 0 100 Output Total 3 Balance -3 100 Weight (lbs) 57.062 kg 56.699 kg Intake: Intake, IV Amount 100 metroNIDAZOLE 500mg/NS 100 100mL 500 mg In 100 ml @ 100 mls/hr IV Q8HR [facility] Rx #:[id number] Oral 0 0 Output: Stool 3 Other: # Voids 0 0 # Bowel Movements 1 Weight Source Bedscale Bedscale Active Medications: Current Medications Amlodipine Besylate (Norvasc) 10 mg PO DAILY [facility] Stop: 01/09/18 08:59 Last Admin: 11/11/17 11:28 Dose: Not Given Aspirin (Aspirin Chewable) 81 mg PO DAILY [facility] Stop: 01/09/18 08:59 Last Admin: 11/11/17 11:29 Dose: Not Given Atorvastatin Calcium (Lipitor) 20 mg PO DAILY [facility] Stop: 01/09/18 08:59 Last Admin: 11/11/17 11:29 Dose: Not Given Cinacalcet (Sensipar) 60 mg PO DAILY [facility] Stop: 01/09/18 08:59 Last Admin: 11/11/17 11:29 Dose: Not Given Hydralazine HCl (Apresoline) 50 mg PO BID [facility] Stop: 01/09/18 08:59 Last Admin: 11/11/17 16:20 Dose: Not Given Hydralazine HCl (Apresoline 20 Mg/Ml) 10 mg IV Q6HR PRN PRN Reason: SBP>160 Stop: 01/10/18 11:39 Last Admin: 11/11/17 12:01 Dose: 10 mg Ceftriaxone Sodium 1 gm/ (Dextrose) 50 mls @ 100 mls/hr IV Q24H [facility] Stop: 01/10/18 00:59 Last Admin: 11/12/17 01:15 Dose: 100 mls/hr Albumin Human (Albuminar 25%) 25 gm in 100 mls @ 50 mls/hr IV PRN PRN PRN Reason: BP Support During HD Metronidazole (Flagyl) 500 mg in 100 mls @ 100 mls/hr IV Q8HR [facility] Stop: 01/10/18 20:59 Last Admin: 11/12/17 05:51 Dose: 100 mls/hr Isosorbide Dinitrate (Isordil) 20 mg PO DAILY [facility] Stop: 01/09/18 08:59 Last Admin: 11/11/17 11:30 Dose: Not Given Lorazepam (Ativan) 2 mg IVP Q3HR PRN; Protocol PRN Reason: Agitation Stop: 01/09/18 16:58 Last Admin: 11/10/17 17:20 Dose: 2 mg Metoclopramide HCl (Reglan) 5 mg PO TID PRN PRN Reason: GI DISTRESS Stop: 01/09/18 07:29 Metoprolol Tartrate (Lopressor) 25 mg PO BID [facility] Stop: 01/09/18 08:59 Last Admin: 11/11/17 16:20 Dose: Not Given Mirtazapine (Remeron) 7.5 mg PO HS [facility] PRN Reason: Protocol Stop: 01/09/18 20:59 Last Admin: 11/11/17 20:45 Dose: Not Given Pantoprazole Sodium (Protonix) 40 mg IVP BID [facility] Stop: 01/10/18 16:59 Last Admin: 11/11/17 16:20 Dose: 40 mg Sucralfate (Carafate) 1 gm PO BID [facility] Stop: 01/10/18 16:59 Last Admin: 11/11/17 16:21 Dose: Not Given Vitamin B Complex/Vit C/Folic Acid (Vitamin B Complex W/Vitamin C) 1 tab PO DAILY [facility] Stop: 01/09/18 08:59 Last Admin: 11/11/17 11:30 Dose: Not Given General: Alert, Other (Confused, agitated) HEENT: Atraumatic Cardiovascular: Regular rate Lungs: Clear to auscultation Abdomen: Bowel sounds, Soft, Other (no guard or rebound), no Rebound, no Mass, no Guarding Extremities: Other (No edema) Neurological: Other (Non ambulatory) Psych/Mental Status: Other (Confused, not oriented) - Procedures Procedures: Procedures Procedure Code Date EGD DIAGNOSTIC BRUSH WASH 01107 11/10/17 INSPECTION OF UPPER INTESTINAL TRACT, ENDO [id number] 11/10/17 Assessment/Plan - Assessment Assessment: # Coffee ground emesis # Dementia # Altered mental status # Possible sepsis EGD on 11/11 showed mid level esophagitis which was friable, likely source of his coffee grounds. Stomach and duodenum showed no lesion. Pt continues to be altered, and has failed swallow eval. He may eventually need G tube if he fails to improve, although would prefer for esophagitis to not be actively bleeding at the time of insertion. Plan: - will consider NG insertion tomorrow if he continues to be altered. Should allow the esophagitis some time to heal with PPI - consider G tube if fails to improve, possibly early next week - cont IV ppi bid for now - management of sepsis as per primary
--- NOTE | 2017-11-12 09:00 | General Progress Note ---
Subjective - Review of Systems Service Date: 11/12/37 Subjective: Patient is confused, agitated Objective - Results Result Diagrams: 11/11/17 07:56 11/11/17 07:56 Recent Labs: Laboratory Last Values WBC 14.4 Th/cmm (4.8-10.8) H 11/11/17 07:56 RBC 3.27 Mil/cmm (4.30-5.70) L 11/11/17 07:56 Hgb 10.5 gm/dL (12-16) L 11/11/17 07:56 Hct 30.9 % (41.0-60) L 11/11/17 07:56 MCV 94.4 fl (80-99) 11/11/17 07:56 MCH 32.2 pg (26.0-30.0) H 11/11/17 07:56 MCHC Differential 34.2 pg (28.0-36.0) 11/11/17 07:56 RDW 14.9 % (11.5-20.0) 11/11/17 07:56 Plt Count 179 Th/cmm (150-400) 11/11/17 07:56 MPV 8.9 fl 11/11/17 07:56 Neutrophils % [employer] 11/10/17 10:39 Band Neutrophils % 1 % (0-10) 11/11/17 07:56 Lymphocytes % [employer] 11/10/17 10:39 Monocytes % [employer] 11/10/17 10:39 Eosinophils % [employer] 11/10/17 10:39 Basophils % [employer] 11/10/17 10:39 Neutrophils (Manual) 85 % (40-80) H 11/11/17 07:56 Lymphocytes 9 % (20-50) L 11/11/17 07:56 Monocytes 5 % (2-10) 11/11/17 07:56 Platelet Estimate ADEQUATE (NORMAL) 11/11/17 07:56 PT 10.5 SECONDS (9.5-11.5) 11/11/17 07:56 INR 1.01 (0.5-1.4) 11/11/17 07:56 PTT (Actin FS) 22.4 SECONDS (26.0-38.0) L 11/10/17 00:37 Sodium 140 mEq/L (136-145) 11/11/17 07:56 Potassium 4.4 mEq/L (3.5-5.1) 11/11/17 07:56 Chloride 100 mEq/L (98-107) 11/11/17 07:56 Carbon Dioxide 22.4 mEq/L (21.0-31.0) 11/11/17 07:56 Anion Gap 22.0 (7.0-16.0) H 11/11/17 07:56 BUN 55 mg/dL (7-25) H 11/11/17 07:56 Creatinine 13.1 mg/dL (0.7-1.3) H* 11/11/17 07:56 Est GFR ( Amer) 5.1 ml/min (>90) 11/11/17 07:56 Est GFR (Non-Af Amer) 4.2 ml/min 11/11/17 07:56 BUN/Creatinine Ratio 4.2 11/11/17 07:56 Glucose 83 mg/dL (70-105) 11/11/17 07:56 POC Glucose 115 MG/DL (70 - 105) H 11/12/17 05:07 Whole Bld Lactic Acid 0.89 mmol/L (0.60-1.99) 11/10/17 00:37 Calcium 9.7 mg/dL (8.6-10.3) 11/11/17 07:56 Total Bilirubin 0.4 mg/dL (0.3-1.0) 11/11/17 07:56 AST 46 U/L (13-39) H 11/11/17 07:56 ALT 24 U/L (7-52) 11/11/17 07:56 Alkaline Phosphatase 109 U/L (34-104) H 11/11/17 07:56 Ammonia 24 umol/L (16-53) 11/10/17 17:06 Total Protein 7.5 gm/dL (6.0-8.3) 11/11/17 07:56 Albumin 3.7 gm/dL (4.2-5.5) L 11/11/17 07:56 Globulin 3.8 gm/dL 11/11/17 07:56 Albumin/Globulin Ratio 1.0 (1.0-1.8) 11/11/17 07:56 Lipase 52 U/L (11-82) 11/09/17 23:23 TSH 2.95 uIU/ml (0.34-5.60) 11/10/17 10:39 Urine Source RANDOM 11/09/17 23:40 Urine Color YELLOW 11/09/17 23:40 Urine Clarity CLOUDY (CLEAR) 11/09/17 23:40 Urine pH 7.0 (4.6 - 8.0) 11/09/17 23:40 Ur Specific [place] 1.020 (1.005-1.030) 11/09/17 23:40 Urine Protein >=300 mg/dL (NEGATIVE) 11/09/17 23:40 Urine Glucose (UA) 250 mg/dL (NEGATIVE) H 11/09/17 23:40 Urine Ketones NEGATIVE mg/dL (NEGATIVE) 11/09/17 23:40 Urine Blood LARGE (NEGATIVE) H 11/09/17 23:40 Urine Nitrate NEGATIVE (NEGATIVE) 11/09/17 23:40 Urine Bilirubin NEGATIVE (NEGATIVE) 11/09/17 23:40 Urine Urobilinogen 0.2 E.U./dL (0.2 - 1.0) 11/09/17 23:40 Ur Leukocyte Esterase SMALL (NEGATIVE) H 11/09/17 23:40 Urine RBC 5-10 /hpf (0-5) H 11/09/17 23:40 Urine WBC 2-5 /hpf (0-5) 11/09/17 23:40 Ur Epithelial Cells OCCASIONAL /lpf (FEW) 11/09/17 23:40 Urine Bacteria FEW /hpf (NONE SEEN) 11/09/17 23:40 Other Casts 0-2 /LPF (NONE SEEN) 11/09/17 23:40 - Physical Exam Vitals and I&O: Vital Signs Temp 97.6 F 11/12/17 04:00 Pulse 88 11/12/17 04:00 Resp 21 11/12/17 04:00 BP 185/84 11/12/17 04:00 Pulse Ox 97 11/12/17 04:00 Intake & Output 11/11/17 11/12/17 11/12/17 18:59 06:59 18:59 Intake Total 0 100 Output Total 3 Balance -3 100 Weight (lbs) 57.062 kg 56.699 kg Intake: Intake, IV Amount 100 metroNIDAZOLE 500mg/NS 100 100mL 500 mg In 100 ml @ 100 mls/hr IV Q8HR [facility] Rx #:[id number] Oral 0 0 Output: Stool 3 Other: # Voids 0 0 # Bowel Movements 1 Weight Source Bedscale Bedscale Active Medications: Current Medications Amlodipine Besylate (Norvasc) 10 mg PO DAILY [facility] Stop: 01/09/18 08:59 Last Admin: 11/11/17 11:28 Dose: Not Given Aspirin (Aspirin Chewable) 81 mg PO DAILY [facility] Stop: 01/09/18 08:59 Last Admin: 11/11/17 11:29 Dose: Not Given Atorvastatin Calcium (Lipitor) 20 mg PO DAILY [facility] Stop: 01/09/18 08:59 Last Admin: 11/11/17 11:29 Dose: Not Given Cinacalcet (Sensipar) 60 mg PO DAILY [facility] Stop: 01/09/18 08:59 Last Admin: 11/11/17 11:29 Dose: Not Given Hydralazine HCl (Apresoline) 50 mg PO BID [facility] Stop: 01/09/18 08:59 Last Admin: 11/11/17 16:20 Dose: Not Given Hydralazine HCl (Apresoline 20 Mg/Ml) 10 mg IV Q6HR PRN PRN Reason: SBP>160 Stop: 01/10/18 11:39 Last Admin: 11/11/17 12:01 Dose: 10 mg Ceftriaxone Sodium 1 gm/ (Dextrose) 50 mls @ 100 mls/hr IV Q24H [facility] Stop: 01/10/18 00:59 Last Admin: 11/12/17 01:15 Dose: 100 mls/hr Albumin Human (Albuminar 25%) 25 gm in 100 mls @ 50 mls/hr IV PRN PRN PRN Reason: BP Support During HD Metronidazole (Flagyl) 500 mg in 100 mls @ 100 mls/hr IV Q8HR [facility] Stop: 01/10/18 20:59 Last Admin: 11/12/17 05:51 Dose: 100 mls/hr Isosorbide Dinitrate (Isordil) 20 mg PO DAILY [facility] Stop: 01/09/18 08:59 Last Admin: 11/11/17 11:30 Dose: Not Given Lorazepam (Ativan) 2 mg IVP Q3HR PRN; Protocol PRN Reason: Agitation Stop: 01/09/18 16:58 Last Admin: 11/10/17 17:20 Dose: 2 mg Metoclopramide HCl (Reglan) 5 mg PO TID PRN PRN Reason: GI DISTRESS Stop: 01/09/18 07:29 Metoprolol Tartrate (Lopressor) 25 mg PO BID [facility] Stop: 01/09/18 08:59 Last Admin: 11/11/17 16:20 Dose: Not Given Mirtazapine (Remeron) 7.5 mg PO HS [facility] PRN Reason: Protocol Stop: 01/09/18 20:59 Last Admin: 11/11/17 20:45 Dose: Not Given Pantoprazole Sodium (Protonix) 40 mg IVP BID [facility] Stop: 01/10/18 16:59 Last Admin: 11/11/17 16:20 Dose: 40 mg Sucralfate (Carafate) 1 gm PO BID [facility] Stop: 01/10/18 16:59 Last Admin: 11/11/17 16:21 Dose: Not Given Vitamin B Complex/Vit C/Folic Acid (Vitamin B Complex W/Vitamin C) 1 tab PO DAILY [facility] Stop: 01/09/18 08:59 Last Admin: 11/11/17 11:30 Dose: Not Given General: Other (Confused, agitated) HEENT: Atraumatic, Other (Legally Blind) Cardiovascular: Regular rate Lungs: Clear to auscultation Abdomen: Bowel sounds, Soft Extremities: Other (No edema) Neurological: Other (Non ambulatory) Psych/Mental Status: Other (Confused, not oriented) - Procedures Procedures: Procedures Procedure Code Date EGD DIAGNOSTIC BRUSH WASH 55138 11/10/17 INSPECTION OF UPPER INTESTINAL TRACT, ENDO [id number] 11/10/17 Assessment/Plan - Assessment Assessment: Patient is awake, alert, confused, not oriented, not following verbal commands, Today he refused blood to be drawn. HD will be done today. Yesterday Upper endoscopy was done. Dx: Coffe ground hemesis secondary to esophagitis, UTI, Leukocytosis, Chronic anemia, HTN, DM, ESRD on HD, Seizure disorder, Thyroid disorder. - Plan Plan: Patient in IV NS, AB, continue with SNF meds. Follow by Nephro, GI, and ID. Will continue to monitor.
[2017-11-12] MEDS: Aspirin 81mg Chewable Tab PO SCH (09:45)
[2017-11-12] MEDS: Atorvastatin Calcium 10 MG TAB PO SCH (09:45)
[2017-11-12] MEDS: Vitamin B Complex w/Vitamin C Tab PO SCH (09:46)
[2017-11-12 10:08] LABS: % BASOPHILS 0.7 % (0.0-2.0); % EOSINOPHILS 0.1 % (0.0-5.0); % LYMPHOCYTES 7.3 % (20.0-50.0); % MONOCYTES 8.2 % (2.0-10.0); % NEUTROPHILS 83.7 % (40.0-80.0); BASOPHILE ABSOLUTE 0.1 Th/cumm (0-0.2); HEMATOCRIT 33.6 % (41.0-60); LYMPHOCYTE ABSOLUTE 0.8 Th/cmm (1.5-3.0); MEAN CELL VOLUME 96.5 fl (80-99); MEAN CORPUSCULAR HEMOGLOBIN 31.6 pg (26.0-30.0); MEAN CORPUSCULAR HGB CONC 32.7 pg (28.0-36.0); MEAN PLATELET VOLUME 9.3 fl; MONOCYTE ABSOLUTE 0.9 Th/cmm (0.3-1.0); NEUTROPHILE ABSOLUTE 9.6 Th/cmm (1.8-8.0); PLATELET COUNT 190 Th/cmm (150-400); RED BLOOD COUNT 3.48 Mil/cmm (4.30-5.70); RED CELL DISTRIBUTION WIDTH 14.5 % (11.5-20.0); WHITE BLOOD COUNT 11.4 Th/cmm (4.8-10.8)
--- NOTE | 2017-11-12 13:02 | General Progress Note ---
Subjective - Review of Systems Service Date: 11/12/17 Subjective: still restless Objective - Results Result Diagrams: 11/12/17 06:00 11/11/17 07:56 Recent Labs: Laboratory Last Values WBC 11.4 Th/cmm (4.8-10.8) H 11/12/17 06:00 RBC 3.48 Mil/cmm (4.30-5.70) L 11/12/17 06:00 Hgb 11.0 gm/dL (12-16) L 11/12/17 06:00 Hct 33.6 % (41.0-60) L 11/12/17 06:00 MCV 96.5 fl (80-99) 11/12/17 06:00 MCH 31.6 pg (26.0-30.0) H 11/12/17 06:00 MCHC Differential 32.7 pg (28.0-36.0) 11/12/17 06:00 RDW 14.5 % (11.5-20.0) 11/12/17 06:00 Plt Count 190 Th/cmm (150-400) 11/12/17 06:00 MPV 9.3 fl 11/12/17 06:00 Neutrophils % 83.7 % (40.0-80.0) H 11/12/17 06:00 Band Neutrophils % 1 % (0-10) 11/11/17 07:56 Lymphocytes % 7.3 % (20.0-50.0) L 11/12/17 06:00 Monocytes % 8.2 % (2.0-10.0) 11/12/17 06:00 Eosinophils % 0.1 % (0.0-5.0) 11/12/17 06:00 Basophils % 0.7 % (0.0-2.0) 11/12/17 06:00 Neutrophils (Manual) 85 % (40-80) H 11/11/17 07:56 Lymphocytes 9 % (20-50) L 11/11/17 07:56 Monocytes 5 % (2-10) 11/11/17 07:56 Platelet Estimate ADEQUATE (NORMAL) 11/11/17 07:56 PT 10.5 SECONDS (9.5-11.5) 11/11/17 07:56 INR 1.01 (0.5-1.4) 11/11/17 07:56 PTT (Actin FS) 22.4 SECONDS (26.0-38.0) L 11/10/17 00:37 Sodium 140 mEq/L (136-145) 11/11/17 07:56 Potassium 4.4 mEq/L (3.5-5.1) 11/11/17 07:56 Chloride 100 mEq/L (98-107) 11/11/17 07:56 Carbon Dioxide 22.4 mEq/L (21.0-31.0) 11/11/17 07:56 Anion Gap 22.0 (7.0-16.0) H 11/11/17 07:56 BUN 55 mg/dL (7-25) H 11/11/17 07:56 Creatinine 13.1 mg/dL (0.7-1.3) H* 11/11/17 07:56 Est GFR ( Amer) 5.1 ml/min (>90) 11/11/17 07:56 Est GFR (Non-Af Amer) 4.2 ml/min 11/11/17 07:56 BUN/Creatinine Ratio 4.2 11/11/17 07:56 Glucose 83 mg/dL (70-105) 11/11/17 07:56 POC Glucose 115 MG/DL (70 - 105) H 11/12/17 05:07 Whole Bld Lactic Acid 0.89 mmol/L (0.60-1.99) 11/10/17 00:37 Calcium 9.7 mg/dL (8.6-10.3) 11/11/17 07:56 Total Bilirubin 0.4 mg/dL (0.3-1.0) 11/11/17 07:56 AST 46 U/L (13-39) H 11/11/17 07:56 ALT 24 U/L (7-52) 11/11/17 07:56 Alkaline Phosphatase 109 U/L (34-104) H 11/11/17 07:56 Ammonia 24 umol/L (16-53) 11/10/17 17:06 Total Protein 7.5 gm/dL (6.0-8.3) 11/11/17 07:56 Albumin 3.7 gm/dL (4.2-5.5) L 11/11/17 07:56 Globulin 3.8 gm/dL 11/11/17 07:56 Albumin/Globulin Ratio 1.0 (1.0-1.8) 11/11/17 07:56 Lipase 52 U/L (11-82) 11/09/17 23:23 TSH 2.95 uIU/ml (0.34-5.60) 11/10/17 10:39 Urine Source RANDOM 11/09/17 23:40 Urine Color YELLOW 11/09/17 23:40 Urine Clarity CLOUDY (CLEAR) 11/09/17 23:40 Urine pH 7.0 (4.6 - 8.0) 11/09/17 23:40 Ur Specific [place] 1.020 (1.005-1.030) 11/09/17 23:40 Urine Protein >=300 mg/dL (NEGATIVE) 11/09/17 23:40 Urine Glucose (UA) 250 mg/dL (NEGATIVE) H 11/09/17 23:40 Urine Ketones NEGATIVE mg/dL (NEGATIVE) 11/09/17 23:40 Urine Blood LARGE (NEGATIVE) H 11/09/17 23:40 Urine Nitrate NEGATIVE (NEGATIVE) 11/09/17 23:40 Urine Bilirubin NEGATIVE (NEGATIVE) 11/09/17 23:40 Urine Urobilinogen 0.2 E.U./dL (0.2 - 1.0) 11/09/17 23:40 Ur Leukocyte Esterase SMALL (NEGATIVE) H 11/09/17 23:40 Urine RBC 5-10 /hpf (0-5) H 11/09/17 23:40 Urine WBC 2-5 /hpf (0-5) 11/09/17 23:40 Ur Epithelial Cells OCCASIONAL /lpf (FEW) 11/09/17 23:40 Urine Bacteria FEW /hpf (NONE SEEN) 11/09/17 23:40 Other Casts 0-2 /LPF (NONE SEEN) 11/09/17 23:40 - Physical Exam Vitals and I&O: Vital Signs Temp 97.6 F 11/12/17 04:00 Pulse 88 11/12/17 04:00 Resp 21 11/12/17 04:00 BP 185/84 11/12/17 04:00 Pulse Ox 97 11/12/17 04:00 Intake & Output 11/11/17 11/12/17 11/12/17 18:59 06:59 18:59 Intake Total 0 200 Output Total 3 Balance -3 200 Weight (lbs) 57.062 kg 56.699 kg Intake: Intake, IV Amount 200 metroNIDAZOLE 500mg/NS 200 100mL 500 mg In 100 ml @ 100 mls/hr IV Q8HR [facility] Rx #:[id number] Oral 0 0 Output: Stool 3 Other: # Voids 0 0 # Bowel Movements 1 Weight Source Bedscale Bedscale Active Medications: Current Medications Amlodipine Besylate (Norvasc) 10 mg PO DAILY [facility] Stop: 01/09/18 08:59 Last Admin: 11/12/17 09:45 Dose: Not Given Aspirin (Aspirin Chewable) 81 mg PO DAILY [facility] Stop: 01/09/18 08:59 Last Admin: 11/12/17 09:45 Dose: Not Given Atorvastatin Calcium (Lipitor) 20 mg PO DAILY [facility] Stop: 01/09/18 08:59 Last Admin: 11/12/17 09:45 Dose: Not Given Cinacalcet (Sensipar) 60 mg PO DAILY [facility] Stop: 01/09/18 08:59 Last Admin: 11/12/17 09:45 Dose: Not Given Hydralazine HCl (Apresoline) 50 mg PO BID [facility] Stop: 01/09/18 08:59 Last Admin: 11/12/17 09:45 Dose: Not Given Hydralazine HCl (Apresoline 20 Mg/Ml) 10 mg IV Q6HR PRN PRN Reason: SBP>160 Stop: 01/10/18 11:39 Last Admin: 11/11/17 12:01 Dose: 10 mg Ceftriaxone Sodium 1 gm/ (Dextrose) 50 mls @ 100 mls/hr IV Q24H [facility] Stop: 01/10/18 00:59 Last Admin: 11/12/17 01:15 Dose: 100 mls/hr Albumin Human (Albuminar 25%) 25 gm in 100 mls @ 50 mls/hr IV PRN PRN PRN Reason: BP Support During HD Metronidazole (Flagyl) 500 mg in 100 mls @ 100 mls/hr IV Q8HR [facility] Stop: 01/10/18 20:59 Last Admin: 11/12/17 12:24 Dose: 100 mls/hr Isosorbide Dinitrate (Isordil) 20 mg PO DAILY [facility] Stop: 01/09/18 08:59 Last Admin: 03/30/18 09:45 Dose: Not Given Lorazepam (Ativan) 2 mg IVP Q3HR PRN; Protocol PRN Reason: Agitation Stop: 01/09/18 16:58 Last Admin: 11/10/17 17:20 Dose: 2 mg Metoclopramide HCl (Reglan) 5 mg PO TID PRN PRN Reason: GI DISTRESS Stop: 01/09/18 07:29 Metoprolol Tartrate (Lopressor) 25 mg PO BID [facility] Stop: 01/09/18 08:59 Last Admin: 11/12/17 09:46 Dose: Not Given Mirtazapine (Remeron) 7.5 mg PO HS [facility] PRN Reason: Protocol Stop: 01/09/18 20:59 Last Admin: 11/11/17 20:45 Dose: Not Given Pantoprazole Sodium (Protonix) 40 mg IVP BID [facility] Stop: 01/10/18 16:59 Last Admin: 11/12/17 09:46 Dose: Not Given Sucralfate (Carafate) 1 gm PO BID [facility] Stop: 01/10/18 16:59 Last Admin: 11/12/17 09:46 Dose: Not Given Vitamin B Complex/Vit C/Folic Acid (Vitamin B Complex W/Vitamin C) 1 tab PO DAILY [facility] Stop: 01/09/18 08:59 Last Admin: 11/12/17 09:46 Dose: Not Given General: Alert, No acute distress, Other (Confused, agitated) HEENT: Atraumatic, Other (Legally Blind) Neck: Supple, +2 carotid pulse wo bruit Cardiovascular: Regular rate, Normal S1, Normal S2 Lungs: Clear to auscultation Abdomen: Bowel sounds, Soft Extremities: Other (No edema), no Edema Neurological: Sensation intact, Other (Non ambulatory) Skin: no Rash Psych/Mental Status: Other (Confused, not oriented, restless) - Procedures Procedures: Procedures Procedure Code Date EGD DIAGNOSTIC BRUSH WASH 33400 11/10/17 INSPECTION OF UPPER INTESTINAL TRACT, ENDO [id number] 11/10/17 Assessment/Plan - Assessment Assessment: ESRD on HD Esophagitis, Duodenitis, Gastritis Uremic Enceph UCx UTI CAD ESS HTN Type 2 DM Hx CHF - Plan Plan: Lab - Result Diagrams 11/11/17 07:56 11/11/17 07:56 Current Medications Amlodipine Besylate (Norvasc) 10 mg PO DAILY [facility] Stop: 01/09/18 08:59 Last Admin: 11/11/17 11:28 Dose: Not Given Aspirin (Aspirin Chewable) 81 mg PO DAILY [facility] Stop: 01/09/18 08:59 Last Admin: 11/11/17 11:29 Dose: Not Given Atorvastatin Calcium (Lipitor) 20 mg PO DAILY [facility] Stop: 01/09/18 08:59 Last Admin: 11/11/17 11:29 Dose: Not Given Cinacalcet (Sensipar) 60 mg PO DAILY [facility] Stop: 01/09/18 08:59 Last Admin: 11/11/17 11:29 Dose: Not Given Hydralazine HCl (Apresoline) 50 mg PO BID [facility] Stop: 01/09/18 08:59 Last Admin: 11/11/17 11:29 Dose: Not Given Hydralazine HCl (Apresoline 20 Mg/Ml) 10 mg IV Q6HR PRN PRN Reason: SBP>160 Stop: 01/10/18 11:39 Last Admin: 11/11/17 12:01 Dose: 10 mg Ceftriaxone Sodium 1 gm/ (Dextrose) 50 mls @ 100 mls/hr IV Q24H [facility] Stop: 01/10/18 00:59 Last Admin: 11/11/17 00:33 Dose: 100 mls/hr Albumin Human (Albuminar 25%) 25 gm in 100 mls @ 50 mls/hr IV PRN PRN PRN Reason: BP Support During HD Isosorbide Dinitrate (Isordil) 20 mg PO DAILY [facility] Stop: 01/09/18 08:59 Last Admin: 11/11/17 11:30 Dose: Not Given Lorazepam (Ativan) 2 mg IVP Q3HR PRN; Protocol PRN Reason: Agitation Stop: 01/09/18 16:58 Last Admin: 11/10/17 17:20 Dose: 2 mg Metoclopramide HCl (Reglan) 5 mg PO TID PRN PRN Reason: GI DISTRESS Stop: 01/09/18 07:29 Metoprolol Tartrate (Lopressor) 25 mg PO BID [facility] Stop: 01/09/18 08:59 Last Admin: 11/11/17 11:30 Dose: Not Given Mirtazapine (Remeron) 7.5 mg PO HS [facility] PRN Reason: Protocol Stop: 01/09/18 20:59 Pantoprazole Sodium (Protonix) 40 mg IVP BID [facility] Stop: 01/10/18 16:59 Pantoprazole Sodium (Protonix) 40 mg IVP DAILY [facility] Stop: 01/11/18 08:59 Sucralfate (Carafate) 1 gm PO BID [facility] Stop: 01/10/18 16:59 Vitamin B Complex/Vit C/Folic Acid (Vitamin B Complex W/Vitamin C) 1 tab PO DAILY [facility] Stop: 01/09/18 08:59 Last Admin: 11/11/17 11:30 Dose: Not Given Lab - Result Diagrams 11/12/17 06:00 11/11/17 07:56 schedule for HD today may need sedation failed swallow eval likely due to agitation
--- NOTE | 2017-11-12 14:22 | Infectious Disease Prog Note ---
Infectious Disease Subjective - Review of Systems Service Date: 11/12/17 Subjective: There is no new change, there is no fever. Infectious Disease Objective - Results Result Diagrams: 11/14/17 06:15 11/14/17 06:15 Recent Labs: Laboratory Last Values WBC 11.4 Th/cmm (4.8-10.8) H 11/12/17 06:00 RBC 3.48 Mil/cmm (4.30-5.70) L 11/12/17 06:00 Hgb 11.0 gm/dL (12-16) L 11/12/17 06:00 Hct 33.6 % (41.0-60) L 11/12/17 06:00 MCV 96.5 fl (80-99) 11/12/17 06:00 MCH 31.6 pg (26.0-30.0) H 11/12/17 06:00 MCHC Differential 32.7 pg (28.0-36.0) 11/12/17 06:00 RDW 14.5 % (11.5-20.0) 11/12/17 06:00 Plt Count 190 Th/cmm (150-400) 11/12/17 06:00 MPV 9.3 fl 11/12/17 06:00 Neutrophils % 83.7 % (40.0-80.0) H 11/12/17 06:00 Band Neutrophils % 1 % (0-10) 11/11/17 07:56 Lymphocytes % 7.3 % (20.0-50.0) L 11/12/17 06:00 Monocytes % 8.2 % (2.0-10.0) 11/12/17 06:00 Eosinophils % 0.1 % (0.0-5.0) 11/12/17 06:00 Basophils % 0.7 % (0.0-2.0) 11/12/17 06:00 Neutrophils (Manual) 85 % (40-80) H 11/11/17 07:56 Lymphocytes 9 % (20-50) L 11/11/17 07:56 Monocytes 5 % (2-10) 11/11/17 07:56 Platelet Estimate ADEQUATE (NORMAL) 11/11/17 07:56 PT 10.5 SECONDS (9.5-11.5) 11/11/17 07:56 INR 1.01 (0.5-1.4) 11/11/17 07:56 PTT (Actin FS) 22.4 SECONDS (26.0-38.0) L 11/10/17 00:37 Sodium 140 mEq/L (136-145) 11/11/17 07:56 Potassium 4.4 mEq/L (3.5-5.1) 11/11/17 07:56 Chloride 100 mEq/L (98-107) 11/11/17 07:56 Carbon Dioxide 22.4 mEq/L (21.0-31.0) 11/11/17 07:56 Anion Gap 22.0 (7.0-16.0) H 11/11/17 07:56 BUN 55 mg/dL (7-25) H 11/11/17 07:56 Creatinine 13.1 mg/dL (0.7-1.3) H* 11/11/17 07:56 Est GFR ( Amer) 5.1 ml/min (>90) 11/11/17 07:56 Est GFR (Non-Af Amer) 4.2 ml/min 11/11/17 07:56 BUN/Creatinine Ratio 4.2 11/11/17 07:56 Glucose 83 mg/dL (70-105) 11/11/17 07:56 POC Glucose 115 MG/DL (70 - 105) H 11/12/17 05:07 Whole Bld Lactic Acid 0.89 mmol/L (0.60-1.99) 11/10/17 00:37 Calcium 9.7 mg/dL (8.6-10.3) 11/11/17 07:56 Total Bilirubin 0.4 mg/dL (0.3-1.0) 11/11/17 07:56 AST 46 U/L (13-39) H 11/11/17 07:56 ALT 24 U/L (7-52) 11/11/17 07:56 Alkaline Phosphatase 109 U/L (34-104) H 11/11/17 07:56 Ammonia 24 umol/L (16-53) 11/10/17 17:06 Total Protein 7.5 gm/dL (6.0-8.3) 11/11/17 07:56 Albumin 3.7 gm/dL (4.2-5.5) L 11/11/17 07:56 Globulin 3.8 gm/dL 11/11/17 07:56 Albumin/Globulin Ratio 1.0 (1.0-1.8) 11/11/17 07:56 Lipase 52 U/L (11-82) 11/09/17 23:23 TSH 2.95 uIU/ml (0.34-5.60) 11/10/17 10:39 Urine Source RANDOM 11/09/17 23:40 Urine Color YELLOW 11/09/17 23:40 Urine Clarity CLOUDY (CLEAR) 11/09/17 23:40 Urine pH 7.0 (4.6 - 8.0) 11/09/17 23:40 Ur Specific [place] 1.020 (1.005-1.030) 11/09/17 23:40 Urine Protein >=300 mg/dL (NEGATIVE) 11/09/17 23:40 Urine Glucose (UA) 250 mg/dL (NEGATIVE) H 11/09/17 23:40 Urine Ketones NEGATIVE mg/dL (NEGATIVE) 11/09/17 23:40 Urine Blood LARGE (NEGATIVE) H 11/09/17 23:40 Urine Nitrate NEGATIVE (NEGATIVE) 11/09/17 23:40 Urine Bilirubin NEGATIVE (NEGATIVE) 11/09/17 23:40 Urine Urobilinogen 0.2 E.U./dL (0.2 - 1.0) 11/09/17 23:40 Ur Leukocyte Esterase SMALL (NEGATIVE) H 11/09/17 23:40 Urine RBC 5-10 /hpf (0-5) H 11/09/17 23:40 Urine WBC 2-5 /hpf (0-5) 11/09/17 23:40 Ur Epithelial Cells OCCASIONAL /lpf (FEW) 11/09/17 23:40 Urine Bacteria FEW /hpf (NONE SEEN) 11/09/17 23:40 Other Casts 0-2 /LPF (NONE SEEN) 11/09/17 23:40 - Physical Exam Vitals and I&O: Vital Signs Temp 98.2 F 11/12/17 08:00 Pulse 105 11/12/17 08:00 Resp 22 11/12/17 08:00 BP 100/64 11/12/17 08:00 Pulse Ox 98 11/12/17 08:00 Intake & Output 11/11/17 11/12/17 11/12/17 18:59 06:59 18:59 Intake Total 0 200 Output Total 3 Balance -3 200 Weight (lbs) 57.062 kg 56.699 kg Intake: Intake, IV Amount 200 metroNIDAZOLE 500mg/NS 200 100mL 500 mg In 100 ml @ 100 mls/hr IV Q8HR [facility] Rx #:[id number] Oral 0 0 Output: Stool 3 Other: # Voids 0 0 # Bowel Movements 1 Weight Source Bedscale Bedscale Active Medications: Current Medications Amlodipine Besylate (Norvasc) 10 mg PO DAILY [facility] Stop: 01/09/18 08:59 Last Admin: 11/12/17 09:45 Dose: Not Given Aspirin (Aspirin Chewable) 81 mg PO DAILY [facility] Stop: 01/09/18 08:59 Last Admin: 11/12/17 09:45 Dose: Not Given Atorvastatin Calcium (Lipitor) 20 mg PO DAILY [facility] Stop: 01/09/18 08:59 Last Admin: 11/12/17 09:45 Dose: Not Given Cinacalcet (Sensipar) 60 mg PO DAILY [facility] Stop: 01/09/18 08:59 Last Admin: 11/12/17 09:45 Dose: Not Given Hydralazine HCl (Apresoline) 50 mg PO BID [facility] Stop: 01/09/18 08:59 Last Admin: 11/12/17 09:45 Dose: Not Given Hydralazine HCl (Apresoline 20 Mg/Ml) 10 mg IV Q6HR PRN PRN Reason: SBP>160 Stop: 01/10/18 11:39 Last Admin: 11/11/17 12:01 Dose: 10 mg Ceftriaxone Sodium 1 gm/ (Dextrose) 50 mls @ 100 mls/hr IV Q24H [facility] Stop: 01/10/18 00:59 Last Admin: 11/12/17 01:15 Dose: 100 mls/hr Albumin Human (Albuminar 25%) 25 gm in 100 mls @ 50 mls/hr IV PRN PRN PRN Reason: BP Support During HD Metronidazole (Flagyl) 500 mg in 100 mls @ 100 mls/hr IV Q8HR [facility] Stop: 01/10/18 20:59 Last Admin: 11/12/17 12:24 Dose: 100 mls/hr Isosorbide Dinitrate (Isordil) 20 mg PO DAILY [facility] Stop: 01/09/18 08:59 Last Admin: 11/12/17 09:45 Dose: Not Given Lorazepam (Ativan) 2 mg IVP Q3HR PRN; Protocol PRN Reason: Agitation Stop: 01/09/18 16:58 Last Admin: 11/10/17 17:20 Dose: 2 mg Metoclopramide HCl (Reglan) 5 mg PO TID PRN PRN Reason: GI DISTRESS Stop: 01/09/18 07:29 Metoprolol Tartrate (Lopressor) 25 mg PO BID [facility] Stop: 01/09/18 08:59 Last Admin: 11/12/17 09:46 Dose: Not Given Mirtazapine (Remeron) 7.5 mg PO HS [facility] PRN Reason: Protocol Stop: 01/09/18 20:59 Last Admin: 11/11/17 20:45 Dose: Not Given Pantoprazole Sodium (Protonix) 40 mg IVP BID [facility] Stop: 01/10/18 16:59 Last Admin: 11/12/17 09:46 Dose: Not Given Sucralfate (Carafate) 1 gm PO BID [facility] Stop: 01/10/18 16:59 Last Admin: 11/12/17 09:46 Dose: Not Given Vitamin B Complex/Vit C/Folic Acid (Vitamin B Complex W/Vitamin C) 1 tab PO DAILY [facility] Stop: 01/09/18 08:59 Last Admin: 11/12/17 09:46 Dose: Not Given General: no acute distress, well developed, well nourished HEENT: atraumatic, normocephalic, PERRLA, EOMI, moist mucous membrane Neck: supple, no thyromegaly, no lymphadenopathy Cardiovascular: S1S2, regular Lungs: clear to auscultation bilaterally, clear to percussion Abdomen: soft, no tender, no distended Extremities: no cyanosis, no clubbing, no edema Skin: intact - Procedures Procedures: Procedures Procedure Code Date EGD DIAGNOSTIC BRUSH WASH 09690 11/10/17 INSPECTION OF UPPER INTESTINAL TRACT, ENDO [id number] 11/10/17 Infectious Disease Assmt/Plan - Assessment Assessment: 1. Leukocytosis. improving. 2. Colitis. 3. CKD 5 on HD. 4. DM2 5. HTN. 6. Encephalopathy. - Plan Plan: Continue ceftriaxone and flagyl.
[2017-11-12 17:34] LABS: ALBUMIN 3.4 gm/dL (4.2-5.5); BILIRUBIN,TOTAL 0.4 mg/dL (0.3-1.0); CALCIUM SERUM 9.3 mg/dL (8.6-10.3); CARBON DIOXIDE 17.6 mEq/L (21.0-31.0); GFR NON AFRICAN-AMERICAN 3.3 ml/min; POTASSIUM SERUM 4.6 mEq/L (3.5-5.1); TOTAL PROTEIN,SERUM 6.8 gm/dL (6.0-8.3)
[2017-11-12 17:41] LABS: CREATININE - SERUM 16.1 mg/dL (0.7-1.3)
[2017-11-13] MEDS: metroNIDAZOLE 500mg/NS 100mL 500 MG/100 ML BAG IV SCH ×3 (04:53→21:06)
[2017-11-13 06:55] LABS: HEMATOCRIT 28.9 % (41.0-60); HEMOGLOBIN 9.6 gm/dL (12-16); MEAN CELL VOLUME 94.8 fl (80-99); MEAN CORPUSCULAR HEMOGLOBIN 31.6 pg (26.0-30.0); MEAN CORPUSCULAR HGB CONC 33.3 pg (28.0-36.0); MEAN PLATELET VOLUME 9.3 fl; PLATELET COUNT 206 Th/cmm (150-400); RED BLOOD COUNT 3.05 Mil/cmm (4.30-5.70); RED CELL DISTRIBUTION WIDTH 14.1 % (11.5-20.0); WHITE BLOOD COUNT 9.9 Th/cmm (4.8-10.8)
[2017-11-13 06:56] LABS: ALBUMIN 3.4 gm/dL (4.2-5.5); ANION GAP 20.5 (7.0-16.0); BILIRUBIN,TOTAL 0.4 mg/dL (0.3-1.0); CALCIUM SERUM 9.3 mg/dL (8.6-10.3); CARBON DIOXIDE 24.9 mEq/L (21.0-31.0); GFR AFRICAN-AMERICAN 9.4 ml/min (>90); GFR NON AFRICAN-AMERICAN 7.8 ml/min; POTASSIUM SERUM 3.4 mEq/L (3.5-5.1); TOTAL PROTEIN,SERUM 6.7 gm/dL (6.0-8.3)
[2017-11-13 06:57] LABS: MANUAL DIFF REQUIRED? YES
[2017-11-13 07:36] LABS: CREATININE - SERUM 7.7 mg/dL (0.7-1.3)
[2017-11-13] MEDS ORDERED: Albuterol/Ipratropium Neb 3 ML AERS HHN PRN (07:45)
[2017-11-13 08:06] LABS: LYMPHOCYTE 7 % (20-50); MONOCYTE 9 % (2-10); NEUTROPHILS 84 % (40-80); PLATELET ESTIMATE ADEQUATE (NORMAL); TOTAL CELLS COUNTED 100
[2017-11-13] MEDS: Albuterol/Ipratropium Neb 3 ML AERS HHN SCH ×5 (08:11→22:38)
--- NOTE | 2017-11-13 08:56 | GI Progress Note ---
Subjective - Review of Systems Subjective: No emesis, but remains somnolent Objective - Results Result Diagrams: 11/13/17 06:10 11/13/17 06:10 Recent Labs: Laboratory Last Values WBC 9.9 Th/cmm (4.8-10.8) 11/13/17 06:10 RBC 3.05 Mil/cmm (4.30-5.70) L 11/13/17 06:10 Hgb 9.6 gm/dL (12-16) L 11/13/17 06:10 Hct 28.9 % (41.0-60) L 11/13/17 06:10 MCV 94.8 fl (80-99) 11/13/17 06:10 MCH 31.6 pg (26.0-30.0) H 11/13/17 06:10 MCHC Differential 33.3 pg (28.0-36.0) 11/13/17 06:10 RDW 14.1 % (11.5-20.0) 11/13/17 06:10 Plt Count 206 Th/cmm (150-400) 11/13/17 06:10 MPV 9.3 fl 11/13/17 06:10 Neutrophils % 83.7 % (40.0-80.0) H 11/12/17 06:00 Band Neutrophils % 1 % (0-10) 11/11/17 07:56 Lymphocytes % 7.3 % (20.0-50.0) L 11/12/17 06:00 Monocytes % 8.2 % (2.0-10.0) 11/12/17 06:00 Eosinophils % 0.1 % (0.0-5.0) 11/12/17 06:00 Basophils % 0.7 % (0.0-2.0) 11/12/17 06:00 Neutrophils (Manual) 84 % (40-80) H 11/13/17 06:10 Lymphocytes 7 % (20-50) L 11/13/17 06:10 Monocytes 9 % (2-10) 11/13/17 06:10 Platelet Estimate ADEQUATE (NORMAL) 11/13/17 06:10 PT 10.5 SECONDS (9.5-11.5) 11/11/17 07:56 INR 1.01 (0.5-1.4) 11/11/17 07:56 PTT (Actin FS) 22.4 SECONDS (26.0-38.0) L 11/10/17 00:37 Sodium 140 mEq/L (136-145) 11/13/17 06:10 Potassium 3.4 mEq/L (3.5-5.1) L 11/13/17 06:10 Chloride 98 mEq/L (98-107) 11/13/17 06:10 Carbon Dioxide 24.9 mEq/L (21.0-31.0) 11/13/17 06:10 Anion Gap 20.5 (7.0-16.0) H 11/13/17 06:10 BUN 29 mg/dL (7-25) H 11/13/17 06:10 Creatinine 7.7 mg/dL (0.7-1.3) H* 11/13/17 06:10 Est GFR ( Amer) 9.4 ml/min (>90) 11/13/17 06:10 Est GFR (Non-Af Amer) 7.8 ml/min 11/13/17 06:10 BUN/Creatinine Ratio 3.8 11/13/17 06:10 Glucose 94 mg/dL (70-105) 11/13/17 06:10 POC Glucose 115 MG/DL (70 - 105) H 11/12/17 05:07 Whole Bld Lactic Acid 0.89 mmol/L (0.60-1.99) 11/10/17 00:37 Calcium 9.3 mg/dL (8.6-10.3) 11/13/17 06:10 Total Bilirubin 0.4 mg/dL (0.3-1.0) 11/13/17 06:10 AST 48 U/L (13-39) H 11/13/17 06:10 ALT 26 U/L (7-52) 11/13/17 06:10 Alkaline Phosphatase 92 U/L (34-104) 11/13/17 06:10 Ammonia 24 umol/L (16-53) 11/10/17 17:06 Total Protein 6.7 gm/dL (6.0-8.3) 11/13/17 06:10 Albumin 3.4 gm/dL (4.2-5.5) L 11/13/17 06:10 Globulin 3.3 gm/dL 11/13/17 06:10 Albumin/Globulin Ratio 1.0 (1.0-1.8) 11/13/17 06:10 Lipase 52 U/L (11-82) 11/09/17 23:23 TSH 2.95 uIU/ml (0.34-5.60) 11/10/17 10:39 Urine Source RANDOM 11/09/17 23:40 Urine Color YELLOW 11/09/17 23:40 Urine Clarity CLOUDY (CLEAR) 11/09/17 23:40 Urine pH 7.0 (4.6 - 8.0) 11/09/17 23:40 Ur Specific [place] 1.020 (1.005-1.030) 11/09/17 23:40 Urine Protein >=300 mg/dL (NEGATIVE) 11/09/17 23:40 Urine Glucose (UA) 250 mg/dL (NEGATIVE) H 11/09/17 23:40 Urine Ketones NEGATIVE mg/dL (NEGATIVE) 11/09/17 23:40 Urine Blood LARGE (NEGATIVE) H 11/09/17 23:40 Urine Nitrate NEGATIVE (NEGATIVE) 11/09/17 23:40 Urine Bilirubin NEGATIVE (NEGATIVE) 11/09/17 23:40 Urine Urobilinogen 0.2 E.U./dL (0.2 - 1.0) 11/09/17 23:40 Ur Leukocyte Esterase SMALL (NEGATIVE) H 11/09/17 23:40 Urine RBC 5-10 /hpf (0-5) H 11/09/17 23:40 Urine WBC 2-5 /hpf (0-5) 11/09/17 23:40 Ur Epithelial Cells OCCASIONAL /lpf (FEW) 11/09/17 23:40 Urine Bacteria FEW /hpf (NONE SEEN) 11/09/17 23:40 Other Casts 0-2 /LPF (NONE SEEN) 11/09/17 23:40 - Physical Exam Vitals and I&O: Vital Signs Temp 97.9 F 11/13/17 04:00 Pulse 93 11/13/17 08:49 Resp 20 11/13/17 08:17 BP 177/90 11/13/17 08:49 Pulse Ox 95 11/13/17 08:12 Intake & Output 11/12/17 11/13/17 11/13/17 18:59 06:59 18:59 Intake Total 150 250 Balance 150 250 Weight (lbs) 56.79 kg 56.472 kg Intake: Intake, IV Amount 150 250 cefTRIAXone 1 gm In 50 50 Dextrose 5% 50 ml @ 100 mls/hr IV Q24H [facility] Rx#: [id number] metroNIDAZOLE 500mg/NS 100 200 100mL 500 mg In 100 ml @ 100 mls/hr IV Q8HR [facility] Rx #:[id number] Oral 0 Other: # Voids 3 1 # Bowel Movements 1 2 Weight Source Bedscale Bedscale Active Medications: Current Medications Albuterol/Ipratropium (Duoneb Neb) 3 ml HHN Q4H [facility] Stop: 01/12/18 07:59 Last Admin: 11/13/17 08:11 Dose: 3 ml Amlodipine Besylate (Norvasc) 10 mg PO DAILY [facility] Stop: 01/09/18 08:59 Last Admin: 11/12/17 09:45 Dose: Not Given Aspirin (Aspirin Chewable) 81 mg PO DAILY [facility] Stop: 01/09/18 08:59 Last Admin: 11/12/17 09:45 Dose: Not Given Atorvastatin Calcium (Lipitor) 20 mg PO DAILY [facility] Stop: 01/09/18 08:59 Last Admin: 11/12/17 09:45 Dose: Not Given Cinacalcet (Sensipar) 60 mg PO DAILY [facility] Stop: 01/09/18 08:59 Last Admin: 11/12/17 09:45 Dose: Not Given Hydralazine HCl (Apresoline) 50 mg PO BID [facility] Stop: 01/09/18 08:59 Last Admin: 11/12/17 16:23 Dose: Not Given Hydralazine HCl (Apresoline 20 Mg/Ml) 10 mg IV Q6HR PRN PRN Reason: SBP>160 Stop: 01/10/18 11:39 Last Admin: 11/13/17 08:49 Dose: 10 mg Ceftriaxone Sodium 1 gm/ (Dextrose) 50 mls @ 100 mls/hr IV Q24H [facility] Stop: 01/10/18 00:59 Last Infusion: 11/13/17 01:03 Dose: Infused Albumin Human (Albuminar 25%) 25 gm in 100 mls @ 50 mls/hr IV PRN PRN PRN Reason: BP Support During HD Metronidazole (Flagyl) 500 mg in 100 mls @ 100 mls/hr IV Q8HR [facility] Stop: 01/10/18 20:59 Last Infusion: 11/13/17 05:53 Dose: Infused Isosorbide Dinitrate (Isordil) 20 mg PO DAILY [facility] Stop: 01/09/18 08:59 Last Admin: 11/12/17 09:45 Dose: Not Given Lorazepam (Ativan) 2 mg IVP Q3HR PRN; Protocol PRN Reason: Agitation Stop: 01/09/18 16:58 Last Admin: 11/10/17 17:20 Dose: 2 mg Metoclopramide HCl (Reglan) 5 mg PO TID PRN PRN Reason: GI DISTRESS Stop: 01/09/18 07:29 Metoprolol Tartrate (Lopressor) 25 mg PO BID [facility] Stop: 01/09/18 08:59 Last Admin: 11/12/17 16:23 Dose: Not Given Mirtazapine (Remeron) 7.5 mg PO HS [facility] PRN Reason: Protocol Stop: 01/09/18 20:59 Last Admin: 11/12/17 21:18 Dose: Not Given Pantoprazole Sodium (Protonix) 40 mg IVP BID [facility] Stop: 01/10/18 16:59 Last Admin: 11/13/17 08:49 Dose: 40 mg Sucralfate (Carafate) 1 gm PO BID [facility] Stop: 01/10/18 16:59 Last Admin: 11/12/17 16:23 Dose: Not Given Vitamin B Complex/Vit C/Folic Acid (Vitamin B Complex W/Vitamin C) 1 tab PO DAILY [facility] Stop: 01/09/18 08:59 Last Admin: 11/12/17 09:46 Dose: Not Given General: Alert, No acute distress, Other (Confused, agitated) HEENT: Atraumatic, Other (Legally Blind) Neck: Supple, +2 carotid pulse wo bruit Cardiovascular: Regular rate, Normal S1, Normal S2 Abdomen: Bowel sounds, Soft, no Hepatomegaly, no Splenomegaly, no Rebound, no Mass, no Guarding Extremities: Other (No edema), no Edema Skin: no Rash Psych/Mental Status: Other (Confused, not oriented, restless) - Procedures Procedures: Procedures Procedure Code Date EGD DIAGNOSTIC BRUSH WASH 72648 11/10/17 INSPECTION OF UPPER INTESTINAL TRACT, ENDO [id number] 11/10/17 Assessment/Plan - Assessment Assessment: # Coffee ground emesis # Dementia # Altered mental status # Possible sepsis EGD on 11/11 showed mid level esophagitis which was friable, likely source of his coffee grounds. Stomach and duodenum showed no lesion. Pt continues to be altered, and has failed swallow eval. He may eventually need G tube if he fails to improve, although would prefer for esophagitis to not be actively bleeding at the time of insertion. Plan: - Pt likely to pull out NG tube, thus advise for PPN over the . - Repeat swallow eval on Wednesday if the pt becomes more alert after treatment of infection and CKD. Ig again fails, will need G tube. Prefer his friable esophagitis to heal a bit more before placement. Consider Wednesday - cont IV ppi bid for now - management of sepsis as per primary
[2017-11-13] MEDS: Atorvastatin Calcium 10 MG TAB PO SCH (08:58)
[2017-11-13] MEDS: Aspirin 81mg Chewable Tab PO SCH (08:58)
[2017-11-13] MEDS: Vitamin B Complex w/Vitamin C Tab PO SCH (08:59)
--- NOTE | 2017-11-13 09:04 | Diagnostic Imaging Report ---
CHEST X-RAY: AP view INDICATION: Pulmonary congestion COMPARISON: 11/10/2017 FINDINGS: Vascular stent of the right upper thorax vasculature is noted probably, the subclavian region. Chronic lung changes are noted. No focal consolidation or effusions. Heart size is normal. IMPRESSION: No focal airspace consolidation identified.
--- NOTE | 2017-11-13 10:06 | General Progress Note ---
Subjective - Review of Systems Service Date: 11/13/17 Subjective: Patient is confused, agitated. Objective - Results Result Diagrams: 11/13/17 06:10 11/13/17 06:10 Recent Labs: Laboratory Last Values WBC 9.9 Th/cmm (4.8-10.8) 11/13/17 06:10 RBC 3.05 Mil/cmm (4.30-5.70) L 11/13/17 06:10 Hgb 9.6 gm/dL (12-16) L 11/13/17 06:10 Hct 28.9 % (41.0-60) L 11/13/17 06:10 MCV 94.8 fl (80-99) 11/13/17 06:10 MCH 31.6 pg (26.0-30.0) H 11/13/17 06:10 MCHC Differential 33.3 pg (28.0-36.0) 11/13/17 06:10 RDW 14.1 % (11.5-20.0) 11/13/17 06:10 Plt Count 206 Th/cmm (150-400) 11/13/17 06:10 MPV 9.3 fl 11/13/17 06:10 Neutrophils % 83.7 % (40.0-80.0) H 11/12/17 06:00 Band Neutrophils % 1 % (0-10) 11/11/17 07:56 Lymphocytes % 7.3 % (20.0-50.0) L 11/12/17 06:00 Monocytes % 8.2 % (2.0-10.0) 11/12/17 06:00 Eosinophils % 0.1 % (0.0-5.0) 11/12/17 06:00 Basophils % 0.7 % (0.0-2.0) 11/12/17 06:00 Neutrophils (Manual) 84 % (40-80) H 11/13/17 06:10 Lymphocytes 7 % (20-50) L 11/13/17 06:10 Monocytes 9 % (2-10) 11/13/17 06:10 Platelet Estimate ADEQUATE (NORMAL) 11/13/17 06:10 PT 10.5 SECONDS (9.5-11.5) 11/11/17 07:56 INR 1.01 (0.5-1.4) 11/11/17 07:56 PTT (Actin FS) 22.4 SECONDS (26.0-38.0) L 11/10/17 00:37 Sodium 140 mEq/L (136-145) 11/13/17 06:10 Potassium 3.4 mEq/L (3.5-5.1) L 11/13/17 06:10 Chloride 98 mEq/L (98-107) 11/13/17 06:10 Carbon Dioxide 24.9 mEq/L (21.0-31.0) 11/13/17 06:10 Anion Gap 20.5 (7.0-16.0) H 11/13/17 06:10 BUN 29 mg/dL (7-25) H 11/13/17 06:10 Creatinine 7.7 mg/dL (0.7-1.3) H* 11/13/17 06:10 Est GFR ( Amer) 9.4 ml/min (>90) 11/13/17 06:10 Est GFR (Non-Af Amer) 7.8 ml/min 11/13/17 06:10 BUN/Creatinine Ratio 3.8 11/13/17 06:10 Glucose 94 mg/dL (70-105) 11/13/17 06:10 POC Glucose 115 MG/DL (70 - 105) H 11/12/17 05:07 Whole Bld Lactic Acid 0.89 mmol/L (0.60-1.99) 11/10/17 00:37 Calcium 9.3 mg/dL (8.6-10.3) 11/13/17 06:10 Total Bilirubin 0.4 mg/dL (0.3-1.0) 11/13/17 06:10 AST 48 U/L (13-39) H 11/13/17 06:10 ALT 26 U/L (7-52) 11/13/17 06:10 Alkaline Phosphatase 92 U/L (34-104) 11/13/17 06:10 Ammonia 24 umol/L (16-53) 11/10/17 17:06 Total Protein 6.7 gm/dL (6.0-8.3) 11/13/17 06:10 Albumin 3.4 gm/dL (4.2-5.5) L 11/13/17 06:10 Globulin 3.3 gm/dL 11/13/17 06:10 Albumin/Globulin Ratio 1.0 (1.0-1.8) 11/13/17 06:10 Lipase 52 U/L (11-82) 11/09/17 23:23 TSH 2.95 uIU/ml (0.34-5.60) 11/10/17 10:39 Urine Source RANDOM 11/09/17 23:40 Urine Color YELLOW 11/09/17 23:40 Urine Clarity CLOUDY (CLEAR) 11/09/17 23:40 Urine pH 7.0 (4.6 - 8.0) 11/09/17 23:40 Ur Specific [place] 1.020 (1.005-1.030) 11/09/17 23:40 Urine Protein >=300 mg/dL (NEGATIVE) 11/09/17 23:40 Urine Glucose (UA) 250 mg/dL (NEGATIVE) H 11/09/17 23:40 Urine Ketones NEGATIVE mg/dL (NEGATIVE) 11/09/17 23:40 Urine Blood LARGE (NEGATIVE) H 11/09/17 23:40 Urine Nitrate NEGATIVE (NEGATIVE) 11/09/17 23:40 Urine Bilirubin NEGATIVE (NEGATIVE) 11/09/17 23:40 Urine Urobilinogen 0.2 E.U./dL (0.2 - 1.0) 11/09/17 23:40 Ur Leukocyte Esterase SMALL (NEGATIVE) H 11/09/17 23:40 Urine RBC 5-10 /hpf (0-5) H 11/09/17 23:40 Urine WBC 2-5 /hpf (0-5) 11/09/17 23:40 Ur Epithelial Cells OCCASIONAL /lpf (FEW) 11/09/17 23:40 Urine Bacteria FEW /hpf (NONE SEEN) 11/09/17 23:40 Other Casts 0-2 /LPF (NONE SEEN) 11/09/17 23:40 - Physical Exam Vitals and I&O: Vital Signs Temp 97.6 F 11/13/17 08:00 Pulse 93 11/13/17 08:49 Resp 20 11/13/17 08:17 BP 177/90 11/13/17 08:49 Pulse Ox 95 11/13/17 08:12 Intake & Output 11/12/17 11/13/17 11/13/17 18:59 06:59 18:59 Intake Total 150 250 Balance 150 250 Weight (lbs) 56.79 kg 56.472 kg Intake: Intake, IV Amount 150 250 cefTRIAXone 1 gm In 50 50 Dextrose 5% 50 ml @ 100 mls/hr IV Q24H [facility] Rx#: [id number] metroNIDAZOLE 500mg/NS 100 200 100mL 500 mg In 100 ml @ 100 mls/hr IV Q8HR [facility] Rx #:[id number] Oral 0 Other: # Voids 3 1 # Bowel Movements 1 2 Weight Source Bedscale Bedscale Active Medications: Current Medications Albuterol/Ipratropium (Duoneb Neb) 3 ml HHN Q4H [facility] Stop: 01/12/18 07:59 Last Admin: 11/13/17 08:11 Dose: 3 ml Amlodipine Besylate (Norvasc) 10 mg PO DAILY [facility] Stop: 01/09/18 08:59 Last Admin: 11/13/17 08:57 Dose: Not Given Aspirin (Aspirin Chewable) 81 mg PO DAILY [facility] Stop: 01/09/18 08:59 Last Admin: 11/13/17 08:58 Dose: Not Given Atorvastatin Calcium (Lipitor) 20 mg PO DAILY [facility] Stop: 01/09/18 08:59 Last Admin: 11/13/17 08:58 Dose: Not Given Cinacalcet (Sensipar) 60 mg PO DAILY [facility] Stop: 01/09/18 08:59 Last Admin: 11/13/17 08:58 Dose: Not Given Hydralazine HCl (Apresoline) 50 mg PO BID [facility] Stop: 01/09/18 08:59 Last Admin: 11/13/17 08:58 Dose: Not Given Hydralazine HCl (Apresoline 20 Mg/Ml) 10 mg IV Q6HR PRN PRN Reason: SBP>160 Stop: 01/10/18 11:39 Last Admin: 11/13/17 08:49 Dose: 10 mg Ceftriaxone Sodium 1 gm/ (Dextrose) 50 mls @ 100 mls/hr IV Q24H [facility] Stop: 01/10/18 00:59 Last Infusion: 11/13/17 01:03 Dose: Infused Albumin Human (Albuminar 25%) 25 gm in 100 mls @ 50 mls/hr IV PRN PRN PRN Reason: BP Support During HD Metronidazole (Flagyl) 500 mg in 100 mls @ 100 mls/hr IV Q8HR [facility] Stop: 01/10/18 20:59 Last Infusion: 11/13/17 05:53 Dose: Infused Isosorbide Dinitrate (Isordil) 20 mg PO DAILY [facility] Stop: 01/09/18 08:59 Last Admin: 11/13/17 08:58 Dose: Not Given Lorazepam (Ativan) 2 mg IVP Q3HR PRN; Protocol PRN Reason: Agitation Stop: 01/09/18 16:58 Last Admin: 11/10/17 17:20 Dose: 2 mg Metoclopramide HCl (Reglan) 5 mg PO TID PRN PRN Reason: GI DISTRESS Stop: 01/09/18 07:29 Metoprolol Tartrate (Lopressor) 25 mg PO BID [facility] Stop: 01/09/18 08:59 Last Admin: 11/13/17 08:59 Dose: Not Given Mirtazapine (Remeron) 7.5 mg PO HS [facility] PRN Reason: Protocol Stop: 01/09/18 20:59 Last Admin: 11/12/17 21:18 Dose: Not Given Pantoprazole Sodium (Protonix) 40 mg IVP BID [facility] Stop: 01/10/18 16:59 Last Admin: 11/13/17 08:49 Dose: 40 mg Sucralfate (Carafate) 1 gm PO BID [facility] Stop: 01/10/18 16:59 Last Admin: 11/13/17 08:59 Dose: Not Given Vitamin B Complex/Vit C/Folic Acid (Vitamin B Complex W/Vitamin C) 1 tab PO DAILY [facility] Stop: 01/09/18 08:59 Last Admin: 11/13/17 08:59 Dose: Not Given General: Alert, No acute distress, Other (Confused, agitated) HEENT: Atraumatic, Other (Legally Blind) Neck: Supple, +2 carotid pulse wo bruit Cardiovascular: Regular rate, Normal S1, Normal S2 Lungs: Other (Bilateral decreased air entry and ronchi.) Abdomen: Bowel sounds, Soft, no Hepatomegaly, no Splenomegaly, no Rebound, no Mass, no Guarding Extremities: Other (No edema), no Edema Neurological: Sensation intact, Other (Non ambulatory) Skin: no Rash Psych/Mental Status: Other (Confused, not oriented, restless) - Procedures Procedures: Procedures Procedure Code Date EGD DIAGNOSTIC BRUSH WASH 33135 11/10/17 INSPECTION OF UPPER INTESTINAL TRACT, ENDO [id number] 11/10/17 Assessment/Plan - Assessment Assessment: Patient is awake, alert, confused, not oriented, not following verbal commands, HD was done yesterday. Upper endoscopy was done. Dx: [place] ground hemesis secondary to esophagitis, UTI, Leukocytosis, Chronic anemia, HTN, DM, ESRD on HD , Seizure disorder, Thyroid disorder. - Plan Plan: Patient in IV NS, AB, Breathing treatment, CXR requested, continue with SNF meds. Follow by Nephro, GI, and ID. Will continue to monitor.
--- NOTE | 2017-11-13 12:43 | General Progress Note ---
Subjective - Review of Systems Service Date: 11/13/17 Subjective: still restless, agitation Objective - Results Result Diagrams: 11/13/17 06:10 11/13/17 06:10 Recent Labs: Laboratory Last Values WBC 9.9 Th/cmm (4.8-10.8) 11/13/17 06:10 RBC 3.05 Mil/cmm (4.30-5.70) L 11/13/17 06:10 Hgb 9.6 gm/dL (12-16) L 11/13/17 06:10 Hct 28.9 % (41.0-60) L 11/13/17 06:10 MCV 94.8 fl (80-99) 11/13/17 06:10 MCH 31.6 pg (26.0-30.0) H 11/13/17 06:10 MCHC Differential 33.3 pg (28.0-36.0) 11/13/17 06:10 RDW 14.1 % (11.5-20.0) 11/13/17 06:10 Plt Count 206 Th/cmm (150-400) 11/13/17 06:10 MPV 9.3 fl 11/13/17 06:10 Neutrophils % 83.7 % (40.0-80.0) H 11/12/17 06:00 Band Neutrophils % 1 % (0-10) 11/11/17 07:56 Lymphocytes % 7.3 % (20.0-50.0) L 11/12/17 06:00 Monocytes % 8.2 % (2.0-10.0) 11/12/17 06:00 Eosinophils % 0.1 % (0.0-5.0) 11/12/17 06:00 Basophils % 0.7 % (0.0-2.0) 11/12/17 06:00 Neutrophils (Manual) 84 % (40-80) H 11/13/17 06:10 Lymphocytes 7 % (20-50) L 11/13/17 06:10 Monocytes 9 % (2-10) 11/13/17 06:10 Platelet Estimate ADEQUATE (NORMAL) 11/13/17 06:10 PT 10.5 SECONDS (9.5-11.5) 11/11/17 07:56 INR 1.01 (0.5-1.4) 11/11/17 07:56 PTT (Actin FS) 22.4 SECONDS (26.0-38.0) L 11/10/17 00:37 Sodium 140 mEq/L (136-145) 11/13/17 06:10 Potassium 3.4 mEq/L (3.5-5.1) L 11/13/17 06:10 Chloride 98 mEq/L (98-107) 11/13/17 06:10 Carbon Dioxide 24.9 mEq/L (21.0-31.0) 11/13/17 06:10 Anion Gap 20.5 (7.0-16.0) H 11/13/17 06:10 BUN 29 mg/dL (7-25) H 11/13/17 06:10 Creatinine 7.7 mg/dL (0.7-1.3) H* 11/13/17 06:10 Est GFR ( Amer) 9.4 ml/min (>90) 11/13/17 06:10 Est GFR (Non-Af Amer) 7.8 ml/min 11/13/17 06:10 BUN/Creatinine Ratio 3.8 11/13/17 06:10 Glucose 94 mg/dL (70-105) 11/13/17 06:10 POC Glucose 115 MG/DL (70 - 105) H 11/12/17 05:07 Whole Bld Lactic Acid 0.89 mmol/L (0.60-1.99) 11/10/17 00:37 Calcium 9.3 mg/dL (8.6-10.3) 11/13/17 06:10 Total Bilirubin 0.4 mg/dL (0.3-1.0) 11/13/17 06:10 AST 48 U/L (13-39) H 11/13/17 06:10 ALT 26 U/L (7-52) 11/13/17 06:10 Alkaline Phosphatase 92 U/L (34-104) 11/13/17 06:10 Ammonia 24 umol/L (16-53) 11/10/17 17:06 Total Protein 6.7 gm/dL (6.0-8.3) 11/13/17 06:10 Albumin 3.4 gm/dL (4.2-5.5) L 11/13/17 06:10 Globulin 3.3 gm/dL 11/13/17 06:10 Albumin/Globulin Ratio 1.0 (1.0-1.8) 11/13/17 06:10 Lipase 52 U/L (11-82) 11/09/17 23:23 TSH 2.95 uIU/ml (0.34-5.60) 11/10/17 10:39 Urine Source RANDOM 11/09/17 23:40 Urine Color YELLOW 11/09/17 23:40 Urine Clarity CLOUDY (CLEAR) 11/09/17 23:40 Urine pH 7.0 (4.6 - 8.0) 11/09/17 23:40 Ur Specific [place] 1.020 (1.005-1.030) 11/09/17 23:40 Urine Protein >=300 mg/dL (NEGATIVE) 11/09/17 23:40 Urine Glucose (UA) 250 mg/dL (NEGATIVE) H 11/09/17 23:40 Urine Ketones NEGATIVE mg/dL (NEGATIVE) 11/09/17 23:40 Urine Blood LARGE (NEGATIVE) H 11/09/17 23:40 Urine Nitrate NEGATIVE (NEGATIVE) 11/09/17 23:40 Urine Bilirubin NEGATIVE (NEGATIVE) 11/09/17 23:40 Urine Urobilinogen 0.2 E.U./dL (0.2 - 1.0) 11/09/17 23:40 Ur Leukocyte Esterase SMALL (NEGATIVE) H 11/09/17 23:40 Urine RBC 5-10 /hpf (0-5) H 11/09/17 23:40 Urine WBC 2-5 /hpf (0-5) 11/09/17 23:40 Ur Epithelial Cells OCCASIONAL /lpf (FEW) 11/09/17 23:40 Urine Bacteria FEW /hpf (NONE SEEN) 11/09/17 23:40 Other Casts 0-2 /LPF (NONE SEEN) 11/09/17 23:40 - Physical Exam Vitals and I&O: Vital Signs Temp 97.6 F 11/13/17 08:00 Pulse 89 11/13/17 11:07 Resp 18 11/13/17 11:07 BP 177/90 11/13/17 08:49 Pulse Ox 96 11/13/17 11:07 Intake & Output 11/12/17 11/13/17 11/13/17 18:59 06:59 18:59 Intake Total 150 250 Balance 150 250 Weight (lbs) 56.79 kg 56.472 kg Intake: Intake, IV Amount 150 250 cefTRIAXone 1 gm In 50 50 Dextrose 5% 50 ml @ 100 mls/hr IV Q24H [facility] Rx#: [id number] metroNIDAZOLE 500mg/NS 100 200 100mL 500 mg In 100 ml @ 100 mls/hr IV Q8HR [facility] Rx #:[id number] Oral 0 Other: # Voids 3 1 # Bowel Movements 1 2 Weight Source Bedscale Bedscale Active Medications: Current Medications Albuterol/Ipratropium (Duoneb Neb) 3 ml HHN Q4H [facility] Stop: 01/12/18 07:59 Last Admin: 11/13/17 11:07 Dose: 3 ml Amlodipine Besylate (Norvasc) 10 mg PO DAILY [facility] Stop: 01/09/18 08:59 Last Admin: 11/13/17 08:57 Dose: Not Given Aspirin (Aspirin Chewable) 81 mg PO DAILY [facility] Stop: 01/09/18 08:59 Last Admin: 11/13/17 08:58 Dose: Not Given Atorvastatin Calcium (Lipitor) 20 mg PO DAILY [facility] Stop: 01/09/18 08:59 Last Admin: 11/13/17 08:58 Dose: Not Given Cinacalcet (Sensipar) 60 mg PO DAILY [facility] Stop: 01/09/18 08:59 Last Admin: 11/13/17 08:58 Dose: Not Given Hydralazine HCl (Apresoline) 50 mg PO BID [facility] Stop: 01/09/18 08:59 Last Admin: 11/13/17 08:58 Dose: Not Given Hydralazine HCl (Apresoline 20 Mg/Ml) 10 mg IV Q6HR PRN PRN Reason: SBP>160 Stop: 01/10/18 11:39 Last Admin: 11/13/17 08:49 Dose: 10 mg Ceftriaxone Sodium 1 gm/ (Dextrose) 50 mls @ 100 mls/hr IV Q24H [facility] Stop: 01/10/18 00:59 Last Infusion: 11/13/17 01:03 Dose: Infused Albumin Human (Albuminar 25%) 25 gm in 100 mls @ 50 mls/hr IV PRN PRN PRN Reason: BP Support During HD Metronidazole (Flagyl) 500 mg in 100 mls @ 100 mls/hr IV Q8HR [facility] Stop: 01/10/18 20:59 Last Admin: 11/13/17 12:26 Dose: 100 mls/hr Isosorbide Dinitrate (Isordil) 20 mg PO DAILY [facility] Stop: 01/09/18 08:59 Last Admin: 11/13/17 08:58 Dose: Not Given Lorazepam (Ativan) 2 mg IVP Q3HR PRN; Protocol PRN Reason: Agitation Stop: 01/09/18 16:58 Last Admin: 11/10/17 17:20 Dose: 2 mg Metoclopramide HCl (Reglan) 5 mg PO TID PRN PRN Reason: GI DISTRESS Stop: 01/09/18 07:29 Metoprolol Tartrate (Lopressor) 25 mg PO BID [facility] Stop: 01/09/18 08:59 Last Admin: 11/13/17 08:59 Dose: Not Given Mirtazapine (Remeron) 7.5 mg PO HS [facility] PRN Reason: Protocol Stop: 01/09/18 20:59 Last Admin: 11/12/17 21:18 Dose: Not Given Miscellaneous (Tpn Per Pharmacy) 1 ea MC PRN PRN PRN Reason: PROTOCOL Stop: 01/12/18 11:32 Pantoprazole Sodium (Protonix) 40 mg IVP BID [facility] Stop: 01/10/18 16:59 Last Admin: 11/13/17 08:49 Dose: 40 mg Sucralfate (Carafate) 1 gm PO BID [facility] Stop: 01/10/18 16:59 Last Admin: 11/13/17 08:59 Dose: Not Given Vitamin B Complex/Vit C/Folic Acid (Vitamin B Complex W/Vitamin C) 1 tab PO DAILY [facility] Stop: 01/09/18 08:59 Last Admin: 11/13/17 08:59 Dose: Not Given General: Alert, No acute distress, Other (Confused, agitated) HEENT: Atraumatic, Other (Legally Blind) Neck: Supple, +2 carotid pulse wo bruit Cardiovascular: Regular rate, Normal S1, Normal S2 Lungs: Other (Bilateral decreased air entry and ronchi.) Abdomen: Bowel sounds, Soft, no Hepatomegaly, no Splenomegaly, no Rebound, no Mass, no Guarding Extremities: Other (No edema), no Edema Neurological: Sensation intact, Other (Non ambulatory) Skin: no Rash Psych/Mental Status: Other (Confused, not oriented, restless) - Procedures Procedures: Procedures Procedure Code Date EGD DIAGNOSTIC BRUSH WASH 69831 11/10/17 INSPECTION OF UPPER INTESTINAL TRACT, ENDO [id number] 11/10/17 Assessment/Plan - Assessment Assessment: ESRD on HD Esophagitis, Duodenitis, Gastritis Uremic Enceph UCx UTI CAD ESS HTN Type 2 DM Hx CHF Psychosis - Plan Plan: Lab - Result Diagrams 11/11/17 07:56 11/11/17 07:56 Current Medications Amlodipine Besylate (Norvasc) 10 mg PO DAILY [facility] Stop: 01/09/18 08:59 Last Admin: 11/11/17 11:28 Dose: Not Given Aspirin (Aspirin Chewable) 81 mg PO DAILY [facility] Stop: 01/09/18 08:59 Last Admin: 11/11/17 11:29 Dose: Not Given Atorvastatin Calcium (Lipitor) 20 mg PO DAILY [facility] Stop: 01/09/18 08:59 Last Admin: 11/11/17 11:29 Dose: Not Given Cinacalcet (Sensipar) 60 mg PO DAILY [facility] Stop: 01/09/18 08:59 Last Admin: 11/11/17 11:29 Dose: Not Given Hydralazine HCl (Apresoline) 50 mg PO BID [facility] Stop: 01/09/18 08:59 Last Admin: 11/11/17 11:29 Dose: Not Given Hydralazine HCl (Apresoline 20 Mg/Ml) 10 mg IV Q6HR PRN PRN Reason: SBP>160 Stop: 01/10/18 11:39 Last Admin: 11/11/17 12:01 Dose: 10 mg Ceftriaxone Sodium 1 gm/ (Dextrose) 50 mls @ 100 mls/hr IV Q24H [facility] Stop: 01/10/18 00:59 Last Admin: 11/11/17 00:33 Dose: 100 mls/hr Albumin Human (Albuminar 25%) 25 gm in 100 mls @ 50 mls/hr IV PRN PRN PRN Reason: BP Support During HD Isosorbide Dinitrate (Isordil) 20 mg PO DAILY [facility] Stop: 01/09/18 08:59 Last Admin: 11/11/17 11:30 Dose: Not Given Lorazepam (Ativan) 2 mg IVP Q3HR PRN; Protocol PRN Reason: Agitation Stop: 01/09/18 16:58 Last Admin: 11/10/17 17:20 Dose: 2 mg Metoclopramide HCl (Reglan) 5 mg PO TID PRN PRN Reason: GI DISTRESS Stop: 01/09/18 07:29 Metoprolol Tartrate (Lopressor) 25 mg PO BID [facility] Stop: 01/09/18 08:59 Last Admin: 11/11/17 11:30 Dose: Not Given Mirtazapine (Remeron) 7.5 mg PO HS [facility] PRN Reason: Protocol Stop: 01/09/18 20:59 Pantoprazole Sodium (Protonix) 40 mg IVP BID [facility] Stop: 01/10/18 16:59 Pantoprazole Sodium (Protonix) 40 mg IVP DAILY [facility] Stop: 01/11/18 08:59 Sucralfate (Carafate) 1 gm PO BID [facility] Stop: 01/10/18 16:59 Vitamin B Complex/Vit C/Folic Acid (Vitamin B Complex W/Vitamin C) 1 tab PO DAILY [facility] Stop: 01/09/18 08:59 Last Admin: 11/11/17 11:30 Dose: Not Given Lab - Result Diagrams 11/13/17 06:10 11/13/17 06:10 schedule for HD today may need sedation failed swallow eval likely due to agitation dileep Martino
[2017-11-13] MEDS ORDERED: Potassium Chloride 20 mEq ER Tab PO ONE (12:44)
[2017-11-13] MEDS ORDERED: KCL 20mEq/100mL Premix 20 MEQ/100 ML PIGGYBACK IV ONE (13:12)
[2017-11-13] MEDS: D5-0.45NS 1,000 ML IV SCH (14:05)
--- NOTE | 2017-11-13 22:58 | Infectious Disease Prog Note ---
Infectious Disease Subjective - Review of Systems Service Date: 11/13/17 Subjective: There is no new change, there is no fever. Infectious Disease Objective - Results Result Diagrams: 11/14/17 06:15 11/14/17 06:15 Recent Labs: Laboratory Last Values WBC 9.9 Th/cmm (4.8-10.8) 11/13/17 06:10 RBC 3.05 Mil/cmm (4.30-5.70) L 11/13/17 06:10 Hgb 9.6 gm/dL (12-16) L 11/13/17 06:10 Hct 28.9 % (41.0-60) L 11/13/17 06:10 MCV 94.8 fl (80-99) 11/13/17 06:10 MCH 31.6 pg (26.0-30.0) H 11/13/17 06:10 MCHC Differential 33.3 pg (28.0-36.0) 11/13/17 06:10 RDW 14.1 % (11.5-20.0) 11/13/17 06:10 Plt Count 206 Th/cmm (150-400) 11/13/17 06:10 MPV 9.3 fl 11/13/17 06:10 Neutrophils % 83.7 % (40.0-80.0) H 11/12/17 06:00 Band Neutrophils % 1 % (0-10) 11/11/17 07:56 Lymphocytes % 7.3 % (20.0-50.0) L 11/12/17 06:00 Monocytes % 8.2 % (2.0-10.0) 11/12/17 06:00 Eosinophils % 0.1 % (0.0-5.0) 11/12/17 06:00 Basophils % 0.7 % (0.0-2.0) 11/12/17 06:00 Neutrophils (Manual) 84 % (40-80) H 11/13/17 06:10 Lymphocytes 7 % (20-50) L 11/13/17 06:10 Monocytes 9 % (2-10) 11/13/17 06:10 Platelet Estimate ADEQUATE (NORMAL) 11/13/17 06:10 PT 10.5 SECONDS (9.5-11.5) 11/11/17 07:56 INR 1.01 (0.5-1.4) 11/11/17 07:56 PTT (Actin FS) 22.4 SECONDS (26.0-38.0) L 11/10/17 00:37 Sodium 140 mEq/L (136-145) 11/13/17 06:10 Potassium 3.4 mEq/L (3.5-5.1) L 11/13/17 06:10 Chloride 98 mEq/L (98-107) 11/13/17 06:10 Carbon Dioxide 24.9 mEq/L (21.0-31.0) 11/13/17 06:10 Anion Gap 20.5 (7.0-16.0) H 11/13/17 06:10 BUN 29 mg/dL (7-25) H 11/13/17 06:10 Creatinine 7.7 mg/dL (0.7-1.3) H* 11/13/17 06:10 Est GFR ( Amer) 9.4 ml/min (>90) 11/13/17 06:10 Est GFR (Non-Af Amer) 7.8 ml/min 11/13/17 06:10 BUN/Creatinine Ratio 3.8 11/13/17 06:10 Glucose 94 mg/dL (70-105) 11/13/17 06:10 POC Glucose 115 MG/DL (70 - 105) H 11/12/17 05:07 Whole Bld Lactic Acid 0.89 mmol/L (0.60-1.99) 11/10/17 00:37 Calcium 9.3 mg/dL (8.6-10.3) 11/13/17 06:10 Total Bilirubin 0.4 mg/dL (0.3-1.0) 11/13/17 06:10 AST 48 U/L (13-39) H 11/13/17 06:10 ALT 26 U/L (7-52) 11/13/17 06:10 Alkaline Phosphatase 92 U/L (34-104) 11/13/17 06:10 Ammonia 24 umol/L (16-53) 11/10/17 17:06 Total Protein 6.7 gm/dL (6.0-8.3) 11/13/17 06:10 Albumin 3.4 gm/dL (4.2-5.5) L 11/13/17 06:10 Globulin 3.3 gm/dL 11/13/17 06:10 Albumin/Globulin Ratio 1.0 (1.0-1.8) 11/13/17 06:10 Lipase 52 U/L (11-82) 11/09/17 23:23 TSH 2.95 uIU/ml (0.34-5.60) 11/10/17 10:39 Urine Source RANDOM 11/09/17 23:40 Urine Color YELLOW 11/09/17 23:40 Urine Clarity CLOUDY (CLEAR) 11/09/17 23:40 Urine pH 7.0 (4.6 - 8.0) 11/09/17 23:40 Ur Specific [place] 1.020 (1.005-1.030) 11/09/17 23:40 Urine Protein >=300 mg/dL (NEGATIVE) 11/09/17 23:40 Urine Glucose (UA) 250 mg/dL (NEGATIVE) H 11/09/17 23:40 Urine Ketones NEGATIVE mg/dL (NEGATIVE) 11/09/17 23:40 Urine Blood LARGE (NEGATIVE) H 11/09/17 23:40 Urine Nitrate NEGATIVE (NEGATIVE) 11/09/17 23:40 Urine Bilirubin NEGATIVE (NEGATIVE) 11/09/17 23:40 Urine Urobilinogen 0.2 E.U./dL (0.2 - 1.0) 11/09/17 23:40 Ur Leukocyte Esterase SMALL (NEGATIVE) H 11/09/17 23:40 Urine RBC 5-10 /hpf (0-5) H 11/09/17 23:40 Urine WBC 2-5 /hpf (0-5) 11/09/17 23:40 Ur Epithelial Cells OCCASIONAL /lpf (FEW) 11/09/17 23:40 Urine Bacteria FEW /hpf (NONE SEEN) 11/09/17 23:40 Other Casts 0-2 /LPF (NONE SEEN) 11/09/17 23:40 - Physical Exam Vitals and I&O: Vital Signs Temp 99.2 F 11/13/17 20:00 Pulse 98 11/13/17 20:00 Resp 20 11/13/17 20:00 BP 155/100 11/13/17 20:00 Pulse Ox 99 11/13/17 20:00 Intake & Output 11/13/17 11/13/17 11/14/17 06:59 18:59 06:59 Intake Total 250 531.25 Balance 250 531.25 Weight (lbs) 56.472 kg 56.472 kg Intake: Intake, IV Amount 250 531.25 D5-0.45NS 1,000 ml @ 75 331.25 mls/hr IV .[id number] [facility] Rx #:[id number] cefTRIAXone 1 gm In 50 Dextrose 5% 50 ml @ 100 mls/hr IV Q24H [facility] Rx#: [id number] metroNIDAZOLE 500mg/NS 200 100 100mL 500 mg In 100 ml @ 100 mls/hr IV Q8HR [facility] Rx #:[id number] Oral 0 Other: # Voids 1 0 # Bowel Movements 2 4 Stool Characteristics Soft Soft Brown Brown Weight Source Bedscale Bedscale Active Medications: Current Medications Albuterol/Ipratropium (Duoneb Neb) 3 ml HHN Q4H [facility] Stop: 01/12/18 07:59 Last Admin: 11/13/17 22:38 Dose: 3 ml Amlodipine Besylate (Norvasc) 10 mg PO DAILY [facility] Stop: 01/09/18 08:59 Last Admin: 11/13/17 08:57 Dose: Not Given Aspirin (Aspirin Chewable) 81 mg PO DAILY [facility] Stop: 01/09/18 08:59 Last Admin: 11/13/17 08:58 Dose: Not Given Atorvastatin Calcium (Lipitor) 20 mg PO DAILY [facility] Stop: 01/09/18 08:59 Last Admin: 11/13/17 08:58 Dose: Not Given Cinacalcet (Sensipar) 60 mg PO DAILY [facility] Stop: 01/09/18 08:59 Last Admin: 11/13/17 08:58 Dose: Not Given Hydralazine HCl (Apresoline) 50 mg PO BID [facility] Stop: 01/09/18 08:59 Last Admin: 11/13/17 16:22 Dose: Not Given Hydralazine HCl (Apresoline 20 Mg/Ml) 10 mg IV Q6HR PRN PRN Reason: SBP>160 Stop: 01/10/18 11:39 Last Admin: 11/13/17 16:36 Dose: 10 mg Ceftriaxone Sodium 1 gm/ (Dextrose) 50 mls @ 100 mls/hr IV Q24H [facility] Stop: 01/10/18 00:59 Last Infusion: 11/13/17 01:03 Dose: Infused Albumin Human (Albuminar 25%) 25 gm in 100 mls @ 50 mls/hr IV PRN PRN PRN Reason: BP Support During HD Metronidazole (Flagyl) 500 mg in 100 mls @ 100 mls/hr IV Q8HR [facility] Stop: 01/10/18 20:59 Last Admin: 11/13/17 21:06 Dose: 100 mls/hr Dextrose/Sodium Chloride (D5-0.45ns) 1,000 mls @ 75 mls/hr IV .[id number] [facility] Stop: 01/12/18 13:12 Last Infusion: 11/13/17 18:30 Dose: 75 mls/hr Isosorbide Dinitrate (Isordil) 20 mg PO DAILY [facility] Stop: 01/09/18 08:59 Last Admin: 11/13/17 08:58 Dose: Not Given Lorazepam (Ativan) 2 mg IVP Q3HR PRN; Protocol PRN Reason: Agitation Stop: 01/09/18 16:58 Last Admin: 11/10/17 17:20 Dose: 2 mg Metoclopramide HCl (Reglan) 5 mg PO TID PRN PRN Reason: GI DISTRESS Stop: 01/09/18 07:29 Metoprolol Tartrate (Lopressor) 25 mg PO BID [facility] Stop: 01/09/18 08:59 Last Admin: 11/13/17 16:23 Dose: Not Given Mirtazapine (Remeron) 7.5 mg PO HS [facility] PRN Reason: Protocol Stop: 01/09/18 20:59 Last Admin: 11/13/17 21:01 Dose: Not Given Miscellaneous (Ppn Per Pharmacy) 1 ea MC PRN PRN PRN Reason: PROTOCOL Stop: 01/12/18 13:55 Pantoprazole Sodium (Protonix) 40 mg IVP BID [facility] Stop: 01/10/18 16:59 Last Admin: 11/13/17 16:36 Dose: 40 mg Sucralfate (Carafate) 1 gm PO BID [facility] Stop: 01/10/18 16:59 Last Admin: 11/13/17 16:23 Dose: Not Given Vitamin B Complex/Vit C/Folic Acid (Vitamin B Complex W/Vitamin C) 1 tab PO DAILY [facility] Stop: 01/09/18 08:59 Last Admin: 11/13/17 08:59 Dose: Not Given General: no acute distress, well developed, well nourished HEENT: atraumatic, normocephalic, PERRLA, EOMI Neck: supple, no thyromegaly Cardiovascular: S1S2, regular Lungs: clear to auscultation bilaterally, clear to percussion Abdomen: soft, no tender, no distended, no hepatomegaly Extremities: no cyanosis, no clubbing, no edema Neurological: awake, alert, oriented Skin: intact - Procedures Procedures: Procedures Procedure Code Date EGD DIAGNOSTIC BRUSH WASH 90657 11/10/17 INSPECTION OF UPPER INTESTINAL TRACT, ENDO [id number] 11/10/17 Infectious Disease Assmt/Plan - Assessment Assessment: 1. Leukocytosis. improving. 2. Colitis. 3. CKD 5 on HD. 4. DM2 5. HTN. 6. Encephalopathy. - Plan Plan: Continue ceftriaxone and flagyl.
[2017-11-14] MEDS: D5-0.45NS 1,000 ML IV SCH (00:12)
[2017-11-14] MEDS: Albuterol/Ipratropium Neb 3 ML AERS HHN SCH ×6 (02:29→22:20)
[2017-11-14] MEDS: metroNIDAZOLE 500mg/NS 100mL 500 MG/100 ML BAG IV SCH ×3 (04:32→20:17)
[2017-11-14 06:47] LABS: % BASOPHILS 2.7 % (0.0-2.0); % EOSINOPHILS 0.3 % (0.0-5.0); % LYMPHOCYTES 11.3 % (20.0-50.0); % MONOCYTES 12.4 % (2.0-10.0); % NEUTROPHILS 73.3 % (40.0-80.0); BASOPHILE ABSOLUTE 0.2 Th/cumm (0-0.2); HEMATOCRIT 29.9 % (41.0-60); HEMOGLOBIN 9.9 gm/dL (12-16); LYMPHOCYTE ABSOLUTE 0.8 Th/cmm (1.5-3.0); MEAN CELL VOLUME 95.1 fl (80-99); MEAN CORPUSCULAR HEMOGLOBIN 31.6 pg (26.0-30.0); MEAN CORPUSCULAR HGB CONC 33.3 pg (28.0-36.0); MONOCYTE ABSOLUTE 0.9 Th/cmm (0.3-1.0); NEUTROPHILE ABSOLUTE 5.4 Th/cmm (1.8-8.0); PLATELET COUNT 218 Th/cmm (150-400); RED BLOOD COUNT 3.14 Mil/cmm (4.30-5.70); RED CELL DISTRIBUTION WIDTH 13.7 % (11.5-20.0); WHITE BLOOD COUNT 7.3 Th/cmm (4.8-10.8)
[2017-11-14 07:03] LABS: ALBUMIN 3.3 gm/dL (4.2-5.5); ANION GAP 19.3 (7.0-16.0); BILIRUBIN,TOTAL 0.4 mg/dL (0.3-1.0); CARBON DIOXIDE 23.3 mEq/L (21.0-31.0); GFR AFRICAN-AMERICAN 6.8 ml/min (>90); GFR NON AFRICAN-AMERICAN 5.6 ml/min; MAGNESIUM 2.2 mg/dL (1.9-2.7); PHOSPHOROUS 6.5 mg/dL (2.5-5.0); POTASSIUM SERUM 3.6 mEq/L (3.5-5.1); TOTAL PROTEIN,SERUM 6.5 gm/dL (6.0-8.3)
[2017-11-14 07:18] LABS: CREATININE - SERUM 10.2 mg/dL (0.7-1.3)
--- NOTE | 2017-11-14 09:05 | General Progress Note ---
Subjective - Review of Systems Service Date: 11/14/17 Subjective: Patient is obtunded, responding to pain Objective - Results Result Diagrams: 11/14/17 06:15 11/14/17 06:15 Recent Labs: Laboratory Last Values WBC 7.3 Th/cmm (4.8-10.8) 11/14/17 06:15 RBC 3.14 Mil/cmm (4.30-5.70) L 11/14/17 06:15 Hgb 9.9 gm/dL (12-16) L 11/14/17 06:15 Hct 29.9 % (41.0-60) L 11/14/17 06:15 MCV 95.1 fl (80-99) 11/14/17 06:15 MCH 31.6 pg (26.0-30.0) H 11/14/17 06:15 MCHC Differential 33.3 pg (28.0-36.0) 11/14/17 06:15 RDW 13.7 % (11.5-20.0) 11/14/17 06:15 Plt Count 218 Th/cmm (150-400) 11/14/17 06:15 MPV 9.0 fl 11/14/17 06:15 Neutrophils % 73.3 % (40.0-80.0) 11/14/17 06:15 Band Neutrophils % 1 % (0-10) 11/11/17 07:56 Lymphocytes % 11.3 % (20.0-50.0) L 11/14/17 06:15 Monocytes % 12.4 % (2.0-10.0) H 11/14/17 06:15 Eosinophils % 0.3 % (0.0-5.0) 11/14/17 06:15 Basophils % 2.7 % (0.0-2.0) H 11/14/17 06:15 Neutrophils (Manual) 84 % (40-80) H 11/13/17 06:10 Lymphocytes 7 % (20-50) L 11/13/17 06:10 Monocytes 9 % (2-10) 11/13/17 06:10 Platelet Estimate ADEQUATE (NORMAL) 11/13/17 06:10 PT 10.5 SECONDS (9.5-11.5) 11/11/17 07:56 INR 1.01 (0.5-1.4) 11/11/17 07:56 PTT (Actin FS) 22.4 SECONDS (26.0-38.0) L 11/10/17 00:37 Sodium 140 mEq/L (136-145) 11/14/17 06:15 Potassium 3.6 mEq/L (3.5-5.1) 11/14/17 06:15 Chloride 101 mEq/L (98-107) 11/14/17 06:15 Carbon Dioxide 23.3 mEq/L (21.0-31.0) 11/14/17 06:15 Anion Gap 19.3 (7.0-16.0) H 11/14/17 06:15 BUN 38 mg/dL (7-25) H 11/14/17 06:15 Creatinine 10.2 mg/dL (0.7-1.3) H* 11/14/17 06:15 Est GFR ( Amer) 6.8 ml/min (>90) 11/14/17 06:15 Est GFR (Non-Af Amer) 5.6 ml/min 11/14/17 06:15 BUN/Creatinine Ratio 3.7 11/14/17 06:15 Glucose 119 mg/dL (70-105) H 11/14/17 06:15 POC Glucose 115 MG/DL (70 - 105) H 11/12/17 05:07 Whole Bld Lactic Acid 0.89 mmol/L (0.60-1.99) 11/10/17 00:37 Calcium 9.0 mg/dL (8.6-10.3) 11/14/17 06:15 Phosphorus 6.5 mg/dL (2.5-5.0) H 11/14/17 06:15 Magnesium 2.2 mg/dL (1.9-2.7) 11/14/17 06:15 Total Bilirubin 0.4 mg/dL (0.3-1.0) 11/14/17 06:15 AST 38 U/L (13-39) 11/14/17 06:15 ALT 23 U/L (7-52) 11/14/17 06:15 Alkaline Phosphatase 83 U/L (34-104) 11/14/17 06:15 Ammonia 24 umol/L (16-53) 11/10/17 17:06 Total Protein 6.5 gm/dL (6.0-8.3) 11/14/17 06:15 Albumin 3.3 gm/dL (4.2-5.5) L 11/14/17 06:15 Globulin 3.2 gm/dL 11/14/17 06:15 Albumin/Globulin Ratio 1.0 (1.0-1.8) 11/14/17 06:15 Lipase 52 U/L (11-82) 11/09/17 23:23 TSH 2.95 uIU/ml (0.34-5.60) 11/10/17 10:39 Urine Source RANDOM 11/09/17 23:40 Urine Color YELLOW 11/09/17 23:40 Urine Clarity CLOUDY (CLEAR) 11/09/17 23:40 Urine pH 7.0 (4.6 - 8.0) 11/09/17 23:40 Ur Specific [place] 1.020 (1.005-1.030) 11/09/17 23:40 Urine Protein >=300 mg/dL (NEGATIVE) 11/09/17 23:40 Urine Glucose (UA) 250 mg/dL (NEGATIVE) H 11/09/17 23:40 Urine Ketones NEGATIVE mg/dL (NEGATIVE) 11/09/17 23:40 Urine Blood LARGE (NEGATIVE) H 11/09/17 23:40 Urine Nitrate NEGATIVE (NEGATIVE) 11/09/17 23:40 Urine Bilirubin NEGATIVE (NEGATIVE) 11/09/17 23:40 Urine Urobilinogen 0.2 E.U./dL (0.2 - 1.0) 11/09/17 23:40 Ur Leukocyte Esterase SMALL (NEGATIVE) H 11/09/17 23:40 Urine RBC 5-10 /hpf (0-5) H 11/09/17 23:40 Urine WBC 2-5 /hpf (0-5) 11/09/17 23:40 Ur Epithelial Cells OCCASIONAL /lpf (FEW) 11/09/17 23:40 Urine Bacteria FEW /hpf (NONE SEEN) 11/09/17 23:40 Other Casts 0-2 /LPF (NONE SEEN) 11/09/17 23:40 - Physical Exam Vitals and I&O: Vital Signs Temp 99.0 F 11/14/17 04:32 Pulse 105 11/14/17 08:01 Resp 20 11/14/17 08:01 BP 148/64 11/14/17 04:32 Pulse Ox 95 11/14/17 08:01 Intake & Output 11/13/17 11/14/17 11/14/17 18:59 06:59 18:59 Intake Total 531.25 677.5 Balance 531.25 677.5 Weight (lbs) 56.472 kg 56.472 kg Intake: Intake, IV Amount 531.25 677.5 D5-0.45NS 1,000 ml @ 75 331.25 427.5 mls/hr IV .[id number] [facility] Rx #:[id number] cefTRIAXone 1 gm In 50 Dextrose 5% 50 ml @ 100 mls/hr IV Q24H [facility] Rx#: [id number] metroNIDAZOLE 500mg/NS 100 200 100mL 500 mg In 100 ml @ 100 mls/hr IV Q8HR [facility] Rx #:[id number] Oral 0 Other: # Voids 0 1 # Bowel Movements 4 1 Stool Characteristics Soft Soft Brown Brown Weight Source Bedscale Bedscale Active Medications: Current Medications Albuterol/Ipratropium (Duoneb Neb) 3 ml HHN Q4H [facility] Stop: 01/12/18 07:59 Last Admin: 11/14/17 08:00 Dose: 3 ml Amlodipine Besylate (Norvasc) 10 mg PO DAILY [facility] Stop: 01/09/18 08:59 Last Admin: 11/13/17 08:57 Dose: Not Given Aspirin (Aspirin Chewable) 81 mg PO DAILY [facility] Stop: 01/09/18 08:59 Last Admin: 11/13/17 08:58 Dose: Not Given Atorvastatin Calcium (Lipitor) 20 mg PO DAILY [facility] Stop: 01/09/18 08:59 Last Admin: 11/13/17 08:58 Dose: Not Given Cinacalcet (Sensipar) 60 mg PO DAILY [facility] Stop: 01/09/18 08:59 Last Admin: 11/13/17 08:58 Dose: Not Given Hydralazine HCl (Apresoline) 50 mg PO BID [facility] Stop: 01/09/18 08:59 Last Admin: 11/13/17 16:22 Dose: Not Given Hydralazine HCl (Apresoline 20 Mg/Ml) 10 mg IV Q6HR PRN PRN Reason: SBP>160 Stop: 01/10/18 11:39 Last Admin: 11/13/17 16:36 Dose: 10 mg Ceftriaxone Sodium 1 gm/ (Dextrose) 50 mls @ 100 mls/hr IV Q24H [facility] Stop: 01/10/18 00:59 Last Infusion: 11/14/17 00:41 Dose: Infused Albumin Human (Albuminar 25%) 25 gm in 100 mls @ 50 mls/hr IV PRN PRN PRN Reason: BP Support During HD Metronidazole (Flagyl) 500 mg in 100 mls @ 100 mls/hr IV Q8HR [facility] Stop: 01/10/18 20:59 Last Infusion: 11/14/17 05:32 Dose: Infused Dextrose/Sodium Chloride (D5-0.45ns) 1,000 mls @ 75 mls/hr IV .[id number] [facility] Stop: 01/12/18 13:12 Last Admin: 11/14/17 00:12 Dose: 75 mls/hr Amino Acids/ Dextrose 1,000 mls @ 60 mls/hr IV .[id number] [facility] Stop: 01/13/18 15:59 Isosorbide Dinitrate (Isordil) 20 mg PO DAILY [facility] Stop: 01/09/18 08:59 Last Admin: 11/13/17 08:58 Dose: Not Given Lorazepam (Ativan) 2 mg IVP Q3HR PRN; Protocol PRN Reason: Agitation Stop: 01/09/18 16:58 Last Admin: 11/13/17 23:34 Dose: 2 mg Metoclopramide HCl (Reglan) 5 mg PO TID PRN PRN Reason: GI DISTRESS Stop: 01/09/18 07:29 Metoprolol Tartrate (Lopressor) 25 mg PO BID [facility] Stop: 01/09/18 08:59 Last Admin: 11/13/17 16:23 Dose: Not Given Mirtazapine (Remeron) 7.5 mg PO HS [facility] PRN Reason: Protocol Stop: 01/09/18 20:59 Last Admin: 11/13/17 21:01 Dose: Not Given Miscellaneous (Ppn Per Pharmacy) 1 ea [facility] PRN PRN PRN Reason: PROTOCOL Stop: 01/12/18 13:55 Pantoprazole Sodium (Protonix) 40 mg IVP BID [facility] Stop: 01/10/18 16:59 Last Admin: 11/13/17 16:36 Dose: 40 mg Sucralfate (Carafate) 1 gm PO BID [facility] Stop: 01/10/18 16:59 Last Admin: 11/13/17 16:23 Dose: Not Given Vitamin B Complex/Vit C/Folic Acid (Vitamin B Complex W/Vitamin C) 1 tab PO DAILY [facility] Stop: 01/09/18 08:59 Last Admin: 11/13/17 08:59 Dose: Not Given General: Alert, No acute distress, Other (Confused, agitated) HEENT: Atraumatic, Other (Legally Blind) Neck: Supple, +2 carotid pulse wo bruit Cardiovascular: Regular rate, Normal S1, Normal S2 Lungs: Other (Bilateral decreased air entry and ronchi.) Abdomen: Bowel sounds, Soft, no Hepatomegaly, no Splenomegaly, no Rebound, no Mass, no Guarding Extremities: Other (No edema), no Edema Neurological: Sensation intact, Other (Non ambulatory) Skin: no Rash Psych/Mental Status: Other (Confused, not oriented, restless) - Procedures Procedures: Procedures Procedure Code Date EGD DIAGNOSTIC BRUSH WASH 39662 11/10/17 INSPECTION OF UPPER INTESTINAL TRACT, ENDO [id number] 11/10/17 Assessment/Plan - Assessment Assessment: Patient is obtunded, responding only to pain. WBC normal. Dx: Coffe ground hemesis secondary to esophagitis, UTI, Leukocytosis, Chronic anemia, HTN, DM, ESRD on HD, Seizure disorder, Thyroid disorder Uremic encephalopathy. - Plan Plan: Patient in IV NS, AB, Breathing treatment, continue with SNF meds. Follow by Nephro, GI, and ID. Family stated that patient is DNR. Will continue to monitor.
[2017-11-14] MEDS: Aspirin 81mg Chewable Tab PO SCH (09:35)
[2017-11-14] MEDS: Atorvastatin Calcium 10 MG TAB PO SCH (09:35)
[2017-11-14] MEDS: Vitamin B Complex w/Vitamin C Tab PO SCH (09:36)
--- NOTE | 2017-11-14 09:40 | GI Progress Note ---
Subjective - Review of Systems Service Date: 11/14/17 Subjective: Still altered, on PPN. Objective - Results Result Diagrams: 11/14/17 06:15 11/14/17 06:15 Recent Labs: Laboratory Last Values WBC 7.3 Th/cmm (4.8-10.8) 11/14/17 06:15 RBC 3.14 Mil/cmm (4.30-5.70) L 11/14/17 06:15 Hgb 9.9 gm/dL (12-16) L 11/14/17 06:15 Hct 29.9 % (41.0-60) L 11/14/17 06:15 MCV 95.1 fl (80-99) 11/14/17 06:15 MCH 31.6 pg (26.0-30.0) H 11/14/17 06:15 MCHC Differential 33.3 pg (28.0-36.0) 11/14/17 06:15 RDW 13.7 % (11.5-20.0) 11/14/17 06:15 Plt Count 218 Th/cmm (150-400) 11/14/17 06:15 MPV 9.0 fl 11/14/17 06:15 Neutrophils % 73.3 % (40.0-80.0) 11/14/17 06:15 Band Neutrophils % 1 % (0-10) 11/11/17 07:56 Lymphocytes % 11.3 % (20.0-50.0) L 11/14/17 06:15 Monocytes % 12.4 % (2.0-10.0) H 11/14/17 06:15 Eosinophils % 0.3 % (0.0-5.0) 11/14/17 06:15 Basophils % 2.7 % (0.0-2.0) H 11/14/17 06:15 Neutrophils (Manual) 84 % (40-80) H 11/13/17 06:10 Lymphocytes 7 % (20-50) L 11/13/17 06:10 Monocytes 9 % (2-10) 11/13/17 06:10 Platelet Estimate ADEQUATE (NORMAL) 11/13/17 06:10 PT 10.5 SECONDS (9.5-11.5) 11/11/17 07:56 INR 1.01 (0.5-1.4) 11/11/17 07:56 PTT (Actin FS) 22.4 SECONDS (26.0-38.0) L 11/10/17 00:37 Sodium 140 mEq/L (136-145) 11/14/17 06:15 Potassium 3.6 mEq/L (3.5-5.1) 11/14/17 06:15 Chloride 101 mEq/L (98-107) 11/14/17 06:15 Carbon Dioxide 23.3 mEq/L (21.0-31.0) 11/14/17 06:15 Anion Gap 19.3 (7.0-16.0) H 11/14/17 06:15 BUN 38 mg/dL (7-25) H 11/14/17 06:15 Creatinine 10.2 mg/dL (0.7-1.3) H* 11/14/17 06:15 Est GFR ( Amer) 6.8 ml/min (>90) 11/14/17 06:15 Est GFR (Non-Af Amer) 5.6 ml/min 11/14/17 06:15 BUN/Creatinine Ratio 3.7 11/14/17 06:15 Glucose 119 mg/dL (70-105) H 11/14/17 06:15 POC Glucose 115 MG/DL (70 - 105) H 11/12/17 05:07 Whole Bld Lactic Acid 0.89 mmol/L (0.60-1.99) 11/10/17 00:37 Calcium 9.0 mg/dL (8.6-10.3) 11/14/17 06:15 Phosphorus 6.5 mg/dL (2.5-5.0) H 11/14/17 06:15 Magnesium 2.2 mg/dL (1.9-2.7) 11/14/17 06:15 Total Bilirubin 0.4 mg/dL (0.3-1.0) 11/14/17 06:15 AST 38 U/L (13-39) 11/14/17 06:15 ALT 23 U/L (7-52) 11/14/17 06:15 Alkaline Phosphatase 83 U/L (34-104) 11/14/17 06:15 Ammonia 24 umol/L (16-53) 11/10/17 17:06 Total Protein 6.5 gm/dL (6.0-8.3) 11/14/17 06:15 Albumin 3.3 gm/dL (4.2-5.5) L 11/14/17 06:15 Globulin 3.2 gm/dL 11/14/17 06:15 Albumin/Globulin Ratio 1.0 (1.0-1.8) 11/14/17 06:15 Lipase 52 U/L (11-82) 11/09/17 23:23 TSH 2.95 uIU/ml (0.34-5.60) 11/10/17 10:39 Urine Source RANDOM 11/09/17 23:40 Urine Color YELLOW 11/09/17 23:40 Urine Clarity CLOUDY (CLEAR) 11/09/17 23:40 Urine pH 7.0 (4.6 - 8.0) 11/09/17 23:40 Ur Specific [place] 1.020 (1.005-1.030) 11/09/17 23:40 Urine Protein >=300 mg/dL (NEGATIVE) 11/09/17 23:40 Urine Glucose (UA) 250 mg/dL (NEGATIVE) H 11/09/17 23:40 Urine Ketones NEGATIVE mg/dL (NEGATIVE) 11/09/17 23:40 Urine Blood LARGE (NEGATIVE) H 11/09/17 23:40 Urine Nitrate NEGATIVE (NEGATIVE) 11/09/17 23:40 Urine Bilirubin NEGATIVE (NEGATIVE) 11/09/17 23:40 Urine Urobilinogen 0.2 E.U./dL (0.2 - 1.0) 11/09/17 23:40 Ur Leukocyte Esterase SMALL (NEGATIVE) H 11/09/17 23:40 Urine RBC 5-10 /hpf (0-5) H 11/09/17 23:40 Urine WBC 2-5 /hpf (0-5) 11/09/17 23:40 Ur Epithelial Cells OCCASIONAL /lpf (FEW) 11/09/17 23:40 Urine Bacteria FEW /hpf (NONE SEEN) 11/09/17 23:40 Other Casts 0-2 /LPF (NONE SEEN) 11/09/17 23:40 - Physical Exam Vitals and I&O: Vital Signs Temp 99.0 F 11/14/17 04:32 Pulse 105 11/14/17 08:01 Resp 20 11/14/17 08:01 BP 148/64 11/14/17 04:32 Pulse Ox 95 11/14/17 08:01 Intake & Output 11/13/17 11/14/17 11/14/17 18:59 06:59 18:59 Intake Total 531.25 677.5 Balance 531.25 677.5 Weight (lbs) 56.472 kg 56.472 kg Intake: Intake, IV Amount 531.25 677.5 D5-0.45NS 1,000 ml @ 75 331.25 427.5 mls/hr IV .[id number] [facility] Rx #:[id number] cefTRIAXone 1 gm In 50 Dextrose 5% 50 ml @ 100 mls/hr IV Q24H [facility] Rx#: [id number] metroNIDAZOLE 500mg/NS 100 200 100mL 500 mg In 100 ml @ 100 mls/hr IV Q8HR [facility] Rx #:[id number] Oral 0 Other: # Voids 0 1 # Bowel Movements 4 1 Stool Characteristics Soft Soft Brown Brown Weight Source Bedscale Bedscale Active Medications: Current Medications Albuterol/Ipratropium (Duoneb Neb) 3 ml HHN Q4H [facility] Stop: 01/12/18 07:59 Last Admin: 11/14/17 08:00 Dose: 3 ml Amlodipine Besylate (Norvasc) 10 mg PO DAILY [facility] Stop: 01/09/18 08:59 Last Admin: 11/13/17 08:57 Dose: Not Given Aspirin (Aspirin Chewable) 81 mg PO DAILY [facility] Stop: 01/09/18 08:59 Last Admin: 11/13/17 08:58 Dose: Not Given Atorvastatin Calcium (Lipitor) 20 mg PO DAILY [facility] Stop: 01/09/18 08:59 Last Admin: 11/13/17 08:58 Dose: Not Given Cinacalcet (Sensipar) 60 mg PO DAILY [facility] Stop: 01/09/18 08:59 Last Admin: 11/13/17 08:58 Dose: Not Given Hydralazine HCl (Apresoline) 50 mg PO BID [facility] Stop: 01/09/18 08:59 Last Admin: 11/13/17 16:22 Dose: Not Given Hydralazine HCl (Apresoline 20 Mg/Ml) 10 mg IV Q6HR PRN PRN Reason: SBP>160 Stop: 01/10/18 11:39 Last Admin: 11/13/17 16:36 Dose: 10 mg Ceftriaxone Sodium 1 gm/ (Dextrose) 50 mls @ 100 mls/hr IV Q24H [facility] Stop: 01/10/18 00:59 Last Infusion: 11/14/17 00:41 Dose: Infused Albumin Human (Albuminar 25%) 25 gm in 100 mls @ 50 mls/hr IV PRN PRN PRN Reason: BP Support During HD Metronidazole (Flagyl) 500 mg in 100 mls @ 100 mls/hr IV Q8HR [facility] Stop: 01/10/18 20:59 Last Infusion: 11/14/17 05:32 Dose: Infused Dextrose/Sodium Chloride (D5-0.45ns) 1,000 mls @ 75 mls/hr IV .[id number] [facility] Stop: 01/12/18 13:12 Last Admin: 11/14/17 00:12 Dose: 75 mls/hr Amino Acids/ Dextrose 1,000 mls @ 60 mls/hr IV .[id number] [facility] Stop: 01/13/18 15:59 Isosorbide Dinitrate (Isordil) 20 mg PO DAILY [facility] Stop: 01/09/18 08:59 Last Admin: 11/13/17 08:58 Dose: Not Given Lorazepam (Ativan) 2 mg IVP Q3HR PRN; Protocol PRN Reason: Agitation Stop: 01/09/18 16:58 Last Admin: 11/13/17 23:34 Dose: 2 mg Metoclopramide HCl (Reglan) 5 mg PO TID PRN PRN Reason: GI DISTRESS Stop: 01/09/18 07:29 Metoprolol Tartrate (Lopressor) 25 mg PO BID [facility] Stop: 01/09/18 08:59 Last Admin: 11/13/17 16:23 Dose: Not Given Mirtazapine (Remeron) 7.5 mg PO HS [facility] PRN Reason: Protocol Stop: 01/09/18 20:59 Last Admin: 11/13/17 21:01 Dose: Not Given Miscellaneous (Ppn Per Pharmacy) 1 ea [facility] PRN PRN PRN Reason: PROTOCOL Stop: 01/12/18 13:55 Pantoprazole Sodium (Protonix) 40 mg IVP BID [facility] Stop: 01/10/18 16:59 Last Admin: 11/13/17 16:36 Dose: 40 mg Sucralfate (Carafate) 1 gm PO BID [facility] Stop: 01/10/18 16:59 Last Admin: 11/13/17 16:23 Dose: Not Given Vitamin B Complex/Vit C/Folic Acid (Vitamin B Complex W/Vitamin C) 1 tab PO DAILY [facility] Stop: 01/09/18 08:59 Last Admin: 11/13/17 08:59 Dose: Not Given General: Alert, No acute distress, Other (Confused, agitated) HEENT: Atraumatic, Other (Legally Blind) Neck: Supple, +2 carotid pulse wo bruit Cardiovascular: Regular rate, Normal S1, Normal S2 Lungs: Other (Bilateral decreased air entry and ronchi.) Abdomen: Bowel sounds, Soft, no Hepatomegaly, no Splenomegaly, no Rebound, no Mass, no Guarding Extremities: Other (No edema), no Edema Neurological: Sensation intact, Other (Non ambulatory) Skin: no Rash Psych/Mental Status: Other (Confused, not oriented, restless) - Procedures Procedures: Procedures Procedure Code Date EGD DIAGNOSTIC BRUSH WASH 57511 11/10/17 INSPECTION OF UPPER INTESTINAL TRACT, ENDO [id number] 11/10/17 Assessment/Plan - Assessment Assessment: # Coffee ground emesis # Dementia # Altered mental status # Possible sepsis EGD on 11/11 showed mid level esophagitis which was friable, likely source of his coffee grounds. Stomach and duodenum showed no lesion. Pt continues to be altered, and has failed swallow eval. Family has decided against artificial feeding at this point, thus we will not plan for G tube placement. Pt likely to dc to hospice tomorrow Plan: - pt likely dc to hospice on Wednesday - cont IV ppi bid for now - management of sepsis as per primary
[2017-11-14] MEDS ORDERED: DEXT 10% IV SCH (16:00)
[2017-11-14] MEDS ORDERED: AMINO ACIDS 4.25% IV SCH (16:00)
[2017-11-14] MEDS ORDERED: DEXTROSE 10% IV SCH (16:00)
--- NOTE | 2017-11-14 17:21 | General Progress Note ---
Subjective - Review of Systems Service Date: 11/14/17 Subjective: still confused, restless Objective - Results Result Diagrams: 11/14/17 06:15 11/14/17 06:15 Recent Labs: Laboratory Last Values WBC 7.3 Th/cmm (4.8-10.8) 11/14/17 06:15 RBC 3.14 Mil/cmm (4.30-5.70) L 11/14/17 06:15 Hgb 9.9 gm/dL (12-16) L 11/14/17 06:15 Hct 29.9 % (41.0-60) L 11/14/17 06:15 MCV 95.1 fl (80-99) 11/14/17 06:15 MCH 31.6 pg (26.0-30.0) H 11/14/17 06:15 MCHC Differential 33.3 pg (28.0-36.0) 11/14/17 06:15 RDW 13.7 % (11.5-20.0) 11/14/17 06:15 Plt Count 218 Th/cmm (150-400) 11/14/17 06:15 MPV 9.0 fl 11/14/17 06:15 Neutrophils % 73.3 % (40.0-80.0) 11/14/17 06:15 Band Neutrophils % 1 % (0-10) 11/11/17 07:56 Lymphocytes % 11.3 % (20.0-50.0) L 11/14/17 06:15 Monocytes % 12.4 % (2.0-10.0) H 11/14/17 06:15 Eosinophils % 0.3 % (0.0-5.0) 11/14/17 06:15 Basophils % 2.7 % (0.0-2.0) H 11/14/17 06:15 Neutrophils (Manual) 84 % (40-80) H 11/13/17 06:10 Lymphocytes 7 % (20-50) L 11/13/17 06:10 Monocytes 9 % (2-10) 11/13/17 06:10 Platelet Estimate ADEQUATE (NORMAL) 11/13/17 06:10 PT 10.5 SECONDS (9.5-11.5) 11/11/17 07:56 INR 1.01 (0.5-1.4) 11/11/17 07:56 PTT (Actin FS) 22.4 SECONDS (26.0-38.0) L 11/10/17 00:37 Sodium 140 mEq/L (136-145) 11/14/17 06:15 Potassium 3.6 mEq/L (3.5-5.1) 11/14/17 06:15 Chloride 101 mEq/L (98-107) 11/14/17 06:15 Carbon Dioxide 23.3 mEq/L (21.0-31.0) 11/14/17 06:15 Anion Gap 19.3 (7.0-16.0) H 11/14/17 06:15 BUN 38 mg/dL (7-25) H 11/14/17 06:15 Creatinine 10.2 mg/dL (0.7-1.3) H* 11/14/17 06:15 Est GFR ( Amer) 6.8 ml/min (>90) 11/14/17 06:15 Est GFR (Non-Af Amer) 5.6 ml/min 11/14/17 06:15 BUN/Creatinine Ratio 3.7 11/14/17 06:15 Glucose 119 mg/dL (70-105) H 11/14/17 06:15 POC Glucose 115 MG/DL (70 - 105) H 11/12/17 05:07 Whole Bld Lactic Acid 0.89 mmol/L (0.60-1.99) 11/10/17 00:37 Calcium 9.0 mg/dL (8.6-10.3) 11/14/17 06:15 Phosphorus 6.5 mg/dL (2.5-5.0) H 11/14/17 06:15 Magnesium 2.2 mg/dL (1.9-2.7) 11/14/17 06:15 Total Bilirubin 0.4 mg/dL (0.3-1.0) 11/14/17 06:15 AST 38 U/L (13-39) 11/14/17 06:15 ALT 23 U/L (7-52) 11/14/17 06:15 Alkaline Phosphatase 83 U/L (34-104) 11/14/17 06:15 Ammonia 24 umol/L (16-53) 11/10/17 17:06 Total Protein 6.5 gm/dL (6.0-8.3) 11/14/17 06:15 Albumin 3.3 gm/dL (4.2-5.5) L 11/14/17 06:15 Globulin 3.2 gm/dL 11/14/17 06:15 Albumin/Globulin Ratio 1.0 (1.0-1.8) 11/14/17 06:15 Lipase 52 U/L (11-82) 11/09/17 23:23 TSH 2.95 uIU/ml (0.34-5.60) 11/10/17 10:39 Urine Source RANDOM 11/09/17 23:40 Urine Color YELLOW 11/09/17 23:40 Urine Clarity CLOUDY (CLEAR) 11/09/17 23:40 Urine pH 7.0 (4.6 - 8.0) 11/09/17 23:40 Ur Specific [place] 1.020 (1.005-1.030) 11/09/17 23:40 Urine Protein >=300 mg/dL (NEGATIVE) 11/09/17 23:40 Urine Glucose (UA) 250 mg/dL (NEGATIVE) H 11/09/17 23:40 Urine Ketones NEGATIVE mg/dL (NEGATIVE) 11/09/17 23:40 Urine Blood LARGE (NEGATIVE) H 11/09/17 23:40 Urine Nitrate NEGATIVE (NEGATIVE) 11/09/17 23:40 Urine Bilirubin NEGATIVE (NEGATIVE) 11/09/17 23:40 Urine Urobilinogen 0.2 E.U./dL (0.2 - 1.0) 11/09/17 23:40 Ur Leukocyte Esterase SMALL (NEGATIVE) H 11/09/17 23:40 Urine RBC 5-10 /hpf (0-5) H 11/09/17 23:40 Urine WBC 2-5 /hpf (0-5) 11/09/17 23:40 Ur Epithelial Cells OCCASIONAL /lpf (FEW) 11/09/17 23:40 Urine Bacteria FEW /hpf (NONE SEEN) 11/09/17 23:40 Other Casts 0-2 /LPF (NONE SEEN) 11/09/17 23:40 - Physical Exam Vitals and I&O: Vital Signs Temp 99.2 F 11/14/17 12:00 Pulse 103 11/14/17 15:33 Resp 20 11/14/17 15:33 BP 101/55 11/14/17 12:00 Pulse Ox 95 11/14/17 15:33 Intake & Output 11/13/17 11/14/17 11/14/17 18:59 06:59 18:59 Intake Total 531.25 677.5 Balance 531.25 677.5 Weight (lbs) 56.472 kg 56.472 kg Intake: Intake, IV Amount 531.25 677.5 D5-0.45NS 1,000 ml @ 75 331.25 427.5 mls/hr IV .[id number] [facility] Rx #:[id number] cefTRIAXone 1 gm In 50 Dextrose 5% 50 ml @ 100 mls/hr IV Q24H [facility] Rx#: [id number] metroNIDAZOLE 500mg/NS 100 200 100mL 500 mg In 100 ml @ 100 mls/hr IV Q8HR [facility] Rx #:[id number] Oral 0 Other: # Voids 0 1 # Bowel Movements 4 1 Stool Characteristics Soft Soft Soft Brown Brown Brown Weight Source Bedscale Bedscale Active Medications: Current Medications Acetaminophen (Tylenol 650mg Supp) 650 mg RC Q4H PRN PRN Reason: Fever > 101 Stop: 01/13/18 16:57 Albuterol/Ipratropium (Duoneb Neb) 3 ml HHN Q4H [facility] Stop: 01/12/18 07:59 Last Admin: 11/14/17 15:32 Dose: 3 ml Amlodipine Besylate (Norvasc) 10 mg PO DAILY [facility] Stop: 01/09/18 08:59 Last Admin: 11/14/17 09:35 Dose: Not Given Aspirin (Aspirin Chewable) 81 mg PO DAILY [facility] Stop: 01/09/18 08:59 Last Admin: 11/14/17 09:35 Dose: Not Given Atorvastatin Calcium (Lipitor) 20 mg PO DAILY [facility] Stop: 01/09/18 08:59 Last Admin: 11/14/17 09:35 Dose: Not Given Cinacalcet (Sensipar) 60 mg PO DAILY [facility] Stop: 01/09/18 08:59 Last Admin: 11/14/17 09:35 Dose: Not Given Hydralazine HCl (Apresoline) 50 mg PO BID [facility] Stop: 01/09/18 08:59 Last Admin: 11/14/17 16:35 Dose: Not Given Hydralazine HCl (Apresoline 20 Mg/Ml) 10 mg IV Q6HR PRN PRN Reason: SBP>160 Stop: 01/10/18 11:39 Last Admin: 11/13/17 16:36 Dose: 10 mg Ceftriaxone Sodium 1 gm/ (Dextrose) 50 mls @ 100 mls/hr IV Q24H [facility] Stop: 01/10/18 00:59 Last Infusion: 11/14/17 00:41 Dose: Infused Albumin Human (Albuminar 25%) 25 gm in 100 mls @ 50 mls/hr IV PRN PRN PRN Reason: BP Support During HD Metronidazole (Flagyl) 500 mg in 100 mls @ 100 mls/hr IV Q8HR [facility] Stop: 01/10/18 20:59 Last Admin: 11/14/17 12:17 Dose: 100 mls/hr Dextrose/Sodium Chloride (D5-0.45ns) 1,000 mls @ 75 mls/hr IV .[id number] [facility] Stop: 01/12/18 13:12 Last Admin: 11/14/17 00:12 Dose: 75 mls/hr Amino Acids/ Dextrose 1,000 mls @ 60 mls/hr IV .[id number] [facility] Stop: 01/13/18 15:59 Last Admin: 11/14/17 16:37 Dose: 60 mls/hr Isosorbide Dinitrate (Isordil) 20 mg PO DAILY [facility] Stop: 01/09/18 08:59 Last Admin: 11/14/17 09:36 Dose: Not Given Lorazepam (Ativan) 2 mg IVP Q3HR PRN; Protocol PRN Reason: Agitation Stop: 01/09/18 16:58 Last Admin: 11/13/17 23:34 Dose: 2 mg Metoclopramide HCl (Reglan) 5 mg PO TID PRN PRN Reason: GI DISTRESS Stop: 01/09/18 07:29 Metoprolol Tartrate (Lopressor) 25 mg PO BID [facility] Stop: 01/09/18 08:59 Last Admin: 11/14/17 16:35 Dose: Not Given Mirtazapine (Remeron) 7.5 mg PO HS [facility] PRN Reason: Protocol Stop: 01/09/18 20:59 Last Admin: 11/13/17 21:01 Dose: Not Given Miscellaneous (Ppn Per Pharmacy) 1 ea MC PRN PRN PRN Reason: PROTOCOL Stop: 01/12/18 13:55 Pantoprazole Sodium (Protonix) 40 mg IVP BID [facility] Stop: 01/10/18 16:59 Last Admin: 11/14/17 16:40 Dose: 40 mg Sucralfate (Carafate) 1 gm PO BID [facility] Stop: 01/10/18 16:59 Last Admin: 11/14/17 16:35 Dose: Not Given Vitamin B Complex/Vit C/Folic Acid (Vitamin B Complex W/Vitamin C) 1 tab PO DAILY [facility] Stop: 01/09/18 08:59 Last Admin: 11/14/17 09:36 Dose: Not Given General: Alert, No acute distress, Other (Confused, agitated) HEENT: Atraumatic, Other (Legally Blind) Neck: Supple, +2 carotid pulse wo bruit Cardiovascular: Regular rate, Normal S1, Normal S2 Lungs: Other (Bilateral decreased air entry and ronchi.) Abdomen: Bowel sounds, Soft, no Hepatomegaly, no Splenomegaly, no Rebound, no Mass, no Guarding Extremities: Other (No edema), no Edema Neurological: Sensation intact, Other (Non ambulatory) Skin: no Rash Psych/Mental Status: Other (Confused, not oriented, restless) - Procedures Procedures: Procedures Procedure Code Date EGD DIAGNOSTIC BRUSH WASH 58251 11/10/17 INSPECTION OF UPPER INTESTINAL TRACT, ENDO [id number] 11/10/17 Assessment/Plan - Assessment Assessment: ESRD on HD Esophagitis, Duodenitis, Gastritis Uremic Enceph UCx UTI CAD ESS HTN Type 2 DM Hx CHF Psychosis - Plan Plan: Lab - Result Diagrams 11/11/17 07:56 11/11/17 07:56 Current Medications Amlodipine Besylate (Norvasc) 10 mg PO DAILY [facility] Stop: 01/09/18 08:59 Last Admin: 11/11/17 11:28 Dose: Not Given Aspirin (Aspirin Chewable) 81 mg PO DAILY [facility] Stop: 01/09/18 08:59 Last Admin: 11/11/17 11:29 Dose: Not Given Atorvastatin Calcium (Lipitor) 20 mg PO DAILY [facility] Stop: 01/09/18 08:59 Last Admin: 11/11/17 11:29 Dose: Not Given Cinacalcet (Sensipar) 60 mg PO DAILY [facility] Stop: 01/09/18 08:59 Last Admin: 11/11/17 11:29 Dose: Not Given Hydralazine HCl (Apresoline) 50 mg PO BID [facility] Stop: 01/09/18 08:59 Last Admin: 11/11/17 11:29 Dose: Not Given Hydralazine HCl (Apresoline 20 Mg/Ml) 10 mg IV Q6HR PRN PRN Reason: SBP>160 Stop: 01/10/18 11:39 Last Admin: 11/11/17 12:01 Dose: 10 mg Ceftriaxone Sodium 1 gm/ (Dextrose) 50 mls @ 100 mls/hr IV Q24H [facility] Stop: 01/10/18 00:59 Last Admin: 11/11/17 00:33 Dose: 100 mls/hr Albumin Human (Albuminar 25%) 25 gm in 100 mls @ 50 mls/hr IV PRN PRN PRN Reason: BP Support During HD Isosorbide Dinitrate (Isordil) 20 mg PO DAILY [facility] Stop: 01/09/18 08:59 Last Admin: 11/11/17 11:30 Dose: Not Given Lorazepam (Ativan) 2 mg IVP Q3HR PRN; Protocol PRN Reason: Agitation Stop: 01/09/18 16:58 Last Admin: 11/10/17 17:20 Dose: 2 mg Metoclopramide HCl (Reglan) 5 mg PO TID PRN PRN Reason: GI DISTRESS Stop: 01/09/18 07:29 Metoprolol Tartrate (Lopressor) 25 mg PO BID [facility] Stop: 01/09/18 08:59 Last Admin: 11/11/17 11:30 Dose: Not Given Mirtazapine (Remeron) 7.5 mg PO HS [facility] PRN Reason: Protocol Stop: 01/09/18 20:59 Pantoprazole Sodium (Protonix) 40 mg IVP BID [facility] Stop: 01/10/18 16:59 Pantoprazole Sodium (Protonix) 40 mg IVP DAILY [facility] Stop: 01/11/18 08:59 Sucralfate (Carafate) 1 gm PO BID [facility] Stop: 01/10/18 16:59 Vitamin B Complex/Vit C/Folic Acid (Vitamin B Complex W/Vitamin C) 1 tab PO DAILY [facility] Stop: 01/09/18 08:59 Last Admin: 11/11/17 11:30 Dose: Not Given Lab - Result Diagrams 11/14/17 06:15 11/14/17 06:15 schedule for HD tomorrow may need sedation failed swallow eval likely due to agitation repalce K on TPN
--- NOTE | 2017-11-14 17:26 | General Progress Note ---
Subjective - Review of Systems Subjective: still confused, restless Objective - Results Result Diagrams: 11/14/17 06:15 11/14/17 06:15 Recent Labs: Laboratory Last Values WBC 7.3 Th/cmm (4.8-10.8) 11/14/17 06:15 RBC 3.14 Mil/cmm (4.30-5.70) L 11/14/17 06:15 Hgb 9.9 gm/dL (12-16) L 11/14/17 06:15 Hct 29.9 % (41.0-60) L 11/14/17 06:15 MCV 95.1 fl (80-99) 11/14/17 06:15 MCH 31.6 pg (26.0-30.0) H 11/14/17 06:15 MCHC Differential 33.3 pg (28.0-36.0) 11/14/17 06:15 RDW 13.7 % (11.5-20.0) 11/14/17 06:15 Plt Count 218 Th/cmm (150-400) 11/14/17 06:15 MPV 9.0 fl 11/14/17 06:15 Neutrophils % 73.3 % (40.0-80.0) 11/14/17 06:15 Band Neutrophils % 1 % (0-10) 11/11/17 07:56 Lymphocytes % 11.3 % (20.0-50.0) L 11/14/17 06:15 Monocytes % 12.4 % (2.0-10.0) H 11/14/17 06:15 Eosinophils % 0.3 % (0.0-5.0) 11/14/17 06:15 Basophils % 2.7 % (0.0-2.0) H 11/14/17 06:15 Neutrophils (Manual) 84 % (40-80) H 11/13/17 06:10 Lymphocytes 7 % (20-50) L 11/13/17 06:10 Monocytes 9 % (2-10) 11/13/17 06:10 Platelet Estimate ADEQUATE (NORMAL) 11/13/17 06:10 PT 10.5 SECONDS (9.5-11.5) 11/11/17 07:56 INR 1.01 (0.5-1.4) 11/11/17 07:56 PTT (Actin FS) 22.4 SECONDS (26.0-38.0) L 11/10/17 00:37 Sodium 140 mEq/L (136-145) 11/14/17 06:15 Potassium 3.6 mEq/L (3.5-5.1) 11/14/17 06:15 Chloride 101 mEq/L (98-107) 11/14/17 06:15 Carbon Dioxide 23.3 mEq/L (21.0-31.0) 11/14/17 06:15 Anion Gap 19.3 (7.0-16.0) H 11/14/17 06:15 BUN 38 mg/dL (7-25) H 11/14/17 06:15 Creatinine 10.2 mg/dL (0.7-1.3) H* 11/14/17 06:15 Est GFR ( Amer) 6.8 ml/min (>90) 11/14/17 06:15 Est GFR (Non-Af Amer) 5.6 ml/min 11/14/17 06:15 BUN/Creatinine Ratio 3.7 11/14/17 06:15 Glucose 119 mg/dL (70-105) H 11/14/17 06:15 POC Glucose 115 MG/DL (70 - 105) H 11/12/17 05:07 Whole Bld Lactic Acid 0.89 mmol/L (0.60-1.99) 11/10/17 00:37 Calcium 9.0 mg/dL (8.6-10.3) 11/14/17 06:15 Phosphorus 6.5 mg/dL (2.5-5.0) H 11/14/17 06:15 Magnesium 2.2 mg/dL (1.9-2.7) 11/14/17 06:15 Total Bilirubin 0.4 mg/dL (0.3-1.0) 11/14/17 06:15 AST 38 U/L (13-39) 11/14/17 06:15 ALT 23 U/L (7-52) 11/14/17 06:15 Alkaline Phosphatase 83 U/L (34-104) 11/14/17 06:15 Ammonia 24 umol/L (16-53) 11/10/17 17:06 Total Protein 6.5 gm/dL (6.0-8.3) 11/14/17 06:15 Albumin 3.3 gm/dL (4.2-5.5) L 11/14/17 06:15 Globulin 3.2 gm/dL 11/14/17 06:15 Albumin/Globulin Ratio 1.0 (1.0-1.8) 11/14/17 06:15 Lipase 52 U/L (11-82) 11/09/17 23:23 TSH 2.95 uIU/ml (0.34-5.60) 11/10/17 10:39 Urine Source RANDOM 11/09/17 23:40 Urine Color YELLOW 11/09/17 23:40 Urine Clarity CLOUDY (CLEAR) 11/09/17 23:40 Urine pH 7.0 (4.6 - 8.0) 11/09/17 23:40 Ur Specific [place] 1.020 (1.005-1.030) 11/09/17 23:40 Urine Protein >=300 mg/dL (NEGATIVE) 11/09/17 23:40 Urine Glucose (UA) 250 mg/dL (NEGATIVE) H 11/09/17 23:40 Urine Ketones NEGATIVE mg/dL (NEGATIVE) 11/09/17 23:40 Urine Blood LARGE (NEGATIVE) H 11/09/17 23:40 Urine Nitrate NEGATIVE (NEGATIVE) 11/09/17 23:40 Urine Bilirubin NEGATIVE (NEGATIVE) 11/09/17 23:40 Urine Urobilinogen 0.2 E.U./dL (0.2 - 1.0) 11/09/17 23:40 Ur Leukocyte Esterase SMALL (NEGATIVE) H 11/09/17 23:40 Urine RBC 5-10 /hpf (0-5) H 11/09/17 23:40 Urine WBC 2-5 /hpf (0-5) 11/09/17 23:40 Ur Epithelial Cells OCCASIONAL /lpf (FEW) 11/09/17 23:40 Urine Bacteria FEW /hpf (NONE SEEN) 11/09/17 23:40 Other Casts 0-2 /LPF (NONE SEEN) 11/09/17 23:40 - Physical Exam Vitals and I&O: Vital Signs Temp 99.2 F 11/14/17 12:00 Pulse 103 11/14/17 15:33 Resp 20 11/14/17 15:33 BP 101/55 11/14/17 12:00 Pulse Ox 95 11/14/17 15:33 Intake & Output 11/13/17 11/14/17 11/14/17 18:59 06:59 18:59 Intake Total 531.25 677.5 Balance 531.25 677.5 Weight (lbs) 56.472 kg 56.472 kg Intake: Intake, IV Amount 531.25 677.5 D5-0.45NS 1,000 ml @ 75 331.25 427.5 mls/hr IV .[id number] [facility] Rx #:[id number] cefTRIAXone 1 gm In 50 Dextrose 5% 50 ml @ 100 mls/hr IV Q24H [facility] Rx#: [id number] metroNIDAZOLE 500mg/NS 100 200 100mL 500 mg In 100 ml @ 100 mls/hr IV Q8HR [facility] Rx #:[id number] Oral 0 Other: # Voids 0 1 # Bowel Movements 4 1 Stool Characteristics Soft Soft Soft Brown Brown Brown Weight Source Bedscale Bedscale Active Medications: Current Medications Acetaminophen (Tylenol 650mg Supp) 650 mg RC Q4H PRN PRN Reason: Fever > 101 Stop: 01/13/18 16:57 Albuterol/Ipratropium (Duoneb Neb) 3 ml HHN Q4H [facility] Stop: 01/12/18 07:59 Last Admin: 11/14/17 15:32 Dose: 3 ml Amlodipine Besylate (Norvasc) 10 mg PO DAILY [facility] Stop: 01/09/18 08:59 Last Admin: 11/14/17 09:35 Dose: Not Given Aspirin (Aspirin Chewable) 81 mg PO DAILY [facility] Stop: 01/09/18 08:59 Last Admin: 11/14/17 09:35 Dose: Not Given Atorvastatin Calcium (Lipitor) 20 mg PO DAILY [facility] Stop: 01/09/18 08:59 Last Admin: 11/14/17 09:35 Dose: Not Given Cinacalcet (Sensipar) 60 mg PO DAILY [facility] Stop: 01/09/18 08:59 Last Admin: 11/14/17 09:35 Dose: Not Given Hydralazine HCl (Apresoline) 50 mg PO BID [facility] Stop: 01/09/18 08:59 Last Admin: 11/14/17 16:35 Dose: Not Given Hydralazine HCl (Apresoline 20 Mg/Ml) 10 mg IV Q6HR PRN PRN Reason: SBP>160 Stop: 01/10/18 11:39 Last Admin: 11/13/17 16:36 Dose: 10 mg Ceftriaxone Sodium 1 gm/ (Dextrose) 50 mls @ 100 mls/hr IV Q24H [facility] Stop: 01/10/18 00:59 Last Infusion: 11/14/17 00:41 Dose: Infused Albumin Human (Albuminar 25%) 25 gm in 100 mls @ 50 mls/hr IV PRN PRN PRN Reason: BP Support During HD Metronidazole (Flagyl) 500 mg in 100 mls @ 100 mls/hr IV Q8HR [facility] Stop: 01/10/18 20:59 Last Admin: 11/14/17 12:17 Dose: 100 mls/hr Amino Acids/ Dextrose 1,000 mls @ 60 mls/hr IV .[id number] [facility] Stop: 01/13/18 15:59 Last Admin: 11/14/17 16:37 Dose: 60 mls/hr Isosorbide Dinitrate (Isordil) 20 mg PO DAILY [facility] Stop: 01/09/18 08:59 Last Admin: 11/14/17 09:36 Dose: Not Given Lorazepam (Ativan) 2 mg IVP Q3HR PRN; Protocol PRN Reason: Agitation Stop: 01/09/18 16:58 Last Admin: 11/13/17 23:34 Dose: 2 mg Metoclopramide HCl (Reglan) 5 mg PO TID PRN PRN Reason: GI DISTRESS Stop: 01/09/18 07:29 Metoprolol Tartrate (Lopressor) 25 mg PO BID [facility] Stop: 01/09/18 08:59 Last Admin: 11/14/17 16:35 Dose: Not Given Mirtazapine (Remeron) 7.5 mg PO HS [facility] PRN Reason: Protocol Stop: 01/09/18 20:59 Last Admin: 11/13/17 21:01 Dose: Not Given Miscellaneous (Ppn Per Pharmacy) 1 ea [facility] PRN PRN PRN Reason: PROTOCOL Stop: 01/12/18 13:55 Pantoprazole Sodium (Protonix) 40 mg IVP BID [facility] Stop: 01/10/18 16:59 Last Admin: 11/14/17 16:40 Dose: 40 mg Sucralfate (Carafate) 1 gm PO BID [facility] Stop: 01/10/18 16:59 Last Admin: 11/14/17 16:35 Dose: Not Given Vitamin B Complex/Vit C/Folic Acid (Vitamin B Complex W/Vitamin C) 1 tab PO DAILY [facility] Stop: 01/09/18 08:59 Last Admin: 11/14/17 09:36 Dose: Not Given General: Alert, No acute distress, Other (Confused, agitated) HEENT: Atraumatic, Other (Legally Blind) Neck: Supple, +2 carotid pulse wo bruit Cardiovascular: Regular rate, Normal S1, Normal S2 Lungs: Other (Bilateral decreased air entry and ronchi.) Abdomen: Bowel sounds, Soft, no Hepatomegaly, no Splenomegaly, no Rebound, no Mass, no Guarding Extremities: Other (No edema), no Edema Neurological: Sensation intact, Other (Non ambulatory) Skin: no Rash Psych/Mental Status: Other (Confused, not oriented, restless) - Procedures Procedures: Procedures Procedure Code Date EGD DIAGNOSTIC BRUSH WASH 58960 11/10/17 INSPECTION OF UPPER INTESTINAL TRACT, ENDO [id number] 11/10/17 Assessment/Plan - Assessment Assessment: ESRD on HD Esophagitis, Duodenitis, Gastritis Uremic Enceph UCx UTI CAD ESS HTN Type 2 DM Hx CHF Psychosis - Plan Plan: Lab - Result Diagrams 11/11/17 07:56 11/11/17 07:56 Current Medications Amlodipine Besylate (Norvasc) 10 mg PO DAILY [facility] Stop: 01/09/18 08:59 Last Admin: 11/11/17 11:28 Dose: Not Given Aspirin (Aspirin Chewable) 81 mg PO DAILY [facility] Stop: 01/09/18 08:59 Last Admin: 11/11/17 11:29 Dose: Not Given Atorvastatin Calcium (Lipitor) 20 mg PO DAILY [facility] Stop: 01/09/18 08:59 Last Admin: 11/11/17 11:29 Dose: Not Given Cinacalcet (Sensipar) 60 mg PO DAILY [facility] Stop: 01/09/18 08:59 Last Admin: 11/11/17 11:29 Dose: Not Given Hydralazine HCl (Apresoline) 50 mg PO BID [facility] Stop: 01/09/18 08:59 Last Admin: 11/11/17 11:29 Dose: Not Given Hydralazine HCl (Apresoline 20 Mg/Ml) 10 mg IV Q6HR PRN PRN Reason: SBP>160 Stop: 01/10/18 11:39 Last Admin: 11/11/17 12:01 Dose: 10 mg Ceftriaxone Sodium 1 gm/ (Dextrose) 50 mls @ 100 mls/hr IV Q24H [facility] Stop: 01/10/18 00:59 Last Admin: 11/11/17 00:33 Dose: 100 mls/hr Albumin Human (Albuminar 25%) 25 gm in 100 mls @ 50 mls/hr IV PRN PRN PRN Reason: BP Support During HD Isosorbide Dinitrate (Isordil) 20 mg PO DAILY [facility] Stop: 01/09/18 08:59 Last Admin: 11/11/17 11:30 Dose: Not Given Lorazepam (Ativan) 2 mg IVP Q3HR PRN; Protocol PRN Reason: Agitation Stop: 01/09/18 16:58 Last Admin: 11/10/17 17:20 Dose: 2 mg Metoclopramide HCl (Reglan) 5 mg PO TID PRN PRN Reason: GI DISTRESS Stop: 01/09/18 07:29 Metoprolol Tartrate (Lopressor) 25 mg PO BID [facility] Stop: 01/09/18 08:59 Last Admin: 11/11/17 11:30 Dose: Not Given Mirtazapine (Remeron) 7.5 mg PO HS [facility] PRN Reason: Protocol Stop: 01/09/18 20:59 Pantoprazole Sodium (Protonix) 40 mg IVP BID [facility] Stop: 01/10/18 16:59 Pantoprazole Sodium (Protonix) 40 mg IVP DAILY [facility] Stop: 01/11/18 08:59 Sucralfate (Carafate) 1 gm PO BID [facility] Stop: 01/10/18 16:59 Vitamin B Complex/Vit C/Folic Acid (Vitamin B Complex W/Vitamin C) 1 tab PO DAILY [facility] Stop: 01/09/18 08:59 Last Admin: 11/11/17 11:30 Dose: Not Given Lab - Result Diagrams 11/14/17 06:15 11/14/17 06:15 schedule for HD tomorrow failed swallow eval likely due to agitation repalce K on TPN @ 40 ml/hr DC IVF
--- NOTE | 2017-11-14 19:07 | Infectious Disease Prog Note ---
Infectious Disease Subjective - Review of Systems Service Date: 11/14/17 Subjective: There is no new change, there is no fever. Infectious Disease Objective - Results Result Diagrams: 11/14/17 06:15 11/14/17 06:15 Recent Labs: Laboratory Last Values WBC 7.3 Th/cmm (4.8-10.8) 11/14/17 06:15 RBC 3.14 Mil/cmm (4.30-5.70) L 11/14/17 06:15 Hgb 9.9 gm/dL (12-16) L 11/14/17 06:15 Hct 29.9 % (41.0-60) L 11/14/17 06:15 MCV 95.1 fl (80-99) 11/14/17 06:15 MCH 31.6 pg (26.0-30.0) H 11/14/17 06:15 MCHC Differential 33.3 pg (28.0-36.0) 11/14/17 06:15 RDW 13.7 % (11.5-20.0) 11/14/17 06:15 Plt Count 218 Th/cmm (150-400) 11/14/17 06:15 MPV 9.0 fl 11/14/17 06:15 Neutrophils % 73.3 % (40.0-80.0) 11/14/17 06:15 Band Neutrophils % 1 % (0-10) 11/11/17 07:56 Lymphocytes % 11.3 % (20.0-50.0) L 11/14/17 06:15 Monocytes % 12.4 % (2.0-10.0) H 11/14/17 06:15 Eosinophils % 0.3 % (0.0-5.0) 11/14/17 06:15 Basophils % 2.7 % (0.0-2.0) H 11/14/17 06:15 Neutrophils (Manual) 84 % (40-80) H 11/13/17 06:10 Lymphocytes 7 % (20-50) L 11/13/17 06:10 Monocytes 9 % (2-10) 11/13/17 06:10 Platelet Estimate ADEQUATE (NORMAL) 11/13/17 06:10 PT 10.5 SECONDS (9.5-11.5) 11/11/17 07:56 INR 1.01 (0.5-1.4) 11/11/17 07:56 PTT (Actin FS) 22.4 SECONDS (26.0-38.0) L 11/10/17 00:37 Sodium 140 mEq/L (136-145) 11/14/17 06:15 Potassium 3.6 mEq/L (3.5-5.1) 11/14/17 06:15 Chloride 101 mEq/L (98-107) 11/14/17 06:15 Carbon Dioxide 23.3 mEq/L (21.0-31.0) 11/14/17 06:15 Anion Gap 19.3 (7.0-16.0) H 11/14/17 06:15 BUN 38 mg/dL (7-25) H 11/14/17 06:15 Creatinine 10.2 mg/dL (0.7-1.3) H* 11/14/17 06:15 Est GFR ( Amer) 6.8 ml/min (>90) 11/14/17 06:15 Est GFR (Non-Af Amer) 5.6 ml/min 11/14/17 06:15 BUN/Creatinine Ratio 3.7 11/14/17 06:15 Glucose 119 mg/dL (70-105) H 11/14/17 06:15 POC Glucose 115 MG/DL (70 - 105) H 11/12/17 05:07 Whole Bld Lactic Acid 0.89 mmol/L (0.60-1.99) 11/10/17 00:37 Calcium 9.0 mg/dL (8.6-10.3) 11/14/17 06:15 Phosphorus 6.5 mg/dL (2.5-5.0) H 11/14/17 06:15 Magnesium 2.2 mg/dL (1.9-2.7) 11/14/17 06:15 Total Bilirubin 0.4 mg/dL (0.3-1.0) 11/14/17 06:15 AST 38 U/L (13-39) 11/14/17 06:15 ALT 23 U/L (7-52) 11/14/17 06:15 Alkaline Phosphatase 83 U/L (34-104) 11/14/17 06:15 Ammonia 24 umol/L (16-53) 11/10/17 17:06 Total Protein 6.5 gm/dL (6.0-8.3) 11/14/17 06:15 Albumin 3.3 gm/dL (4.2-5.5) L 11/14/17 06:15 Globulin 3.2 gm/dL 11/14/17 06:15 Albumin/Globulin Ratio 1.0 (1.0-1.8) 11/14/17 06:15 Lipase 52 U/L (11-82) 11/09/17 23:23 TSH 2.95 uIU/ml (0.34-5.60) 11/10/17 10:39 Urine Source RANDOM 11/09/17 23:40 Urine Color YELLOW 11/09/17 23:40 Urine Clarity CLOUDY (CLEAR) 11/09/17 23:40 Urine pH 7.0 (4.6 - 8.0) 11/09/17 23:40 Ur Specific [place] 1.020 (1.005-1.030) 11/09/17 23:40 Urine Protein >=300 mg/dL (NEGATIVE) 11/09/17 23:40 Urine Glucose (UA) 250 mg/dL (NEGATIVE) H 11/09/17 23:40 Urine Ketones NEGATIVE mg/dL (NEGATIVE) 11/09/17 23:40 Urine Blood LARGE (NEGATIVE) H 11/09/17 23:40 Urine Nitrate NEGATIVE (NEGATIVE) 11/09/17 23:40 Urine Bilirubin NEGATIVE (NEGATIVE) 11/09/17 23:40 Urine Urobilinogen 0.2 E.U./dL (0.2 - 1.0) 11/09/17 23:40 Ur Leukocyte Esterase SMALL (NEGATIVE) H 11/09/17 23:40 Urine RBC 5-10 /hpf (0-5) H 11/09/17 23:40 Urine WBC 2-5 /hpf (0-5) 11/09/17 23:40 Ur Epithelial Cells OCCASIONAL /lpf (FEW) 11/09/17 23:40 Urine Bacteria FEW /hpf (NONE SEEN) 11/09/17 23:40 Other Casts 0-2 /LPF (NONE SEEN) 11/09/17 23:40 - Physical Exam Vitals and I&O: Vital Signs Temp 100.0 F 11/14/17 16:00 Pulse 102 11/14/17 16:00 Resp 24 11/14/17 16:00 BP 158/32 11/14/17 16:00 Pulse Ox 93 11/14/17 16:00 Intake & Output 11/14/17 11/14/17 11/15/17 06:59 18:59 06:59 Intake Total 677.5 1174 Balance 677.5 1174 Weight (lbs) 56.472 kg 56.336 kg Intake: Intake, IV Amount 677.5 1174 Amino Acids 4.25% /Dext 74 10% 500 ml Dextrose 10% 500 ml @ 60 mls/hr IV . [id number] [facility] Rx#:[id number] D5-0.45NS 1,000 ml @ 75 427.5 1000 mls/hr IV .[id number] [facility] Rx #:[id number] cefTRIAXone 1 gm In 50 Dextrose 5% 50 ml @ 100 mls/hr IV Q24H [facility] Rx#: [id number] metroNIDAZOLE 500mg/NS 200 100 100mL 500 mg In 100 ml @ 100 mls/hr IV Q8HR [facility] Rx #:[id number] Oral 0 Other: # Voids 1 0 # Bowel Movements 1 3 Stool Characteristics Soft Soft Brown Brown Weight Source Bedscale Bedscale Active Medications: Current Medications Acetaminophen (Tylenol 650mg Supp) 650 mg RC Q4H PRN PRN Reason: Fever > 100 Stop: 01/13/18 16:57 Last Admin: 11/14/17 17:33 Dose: 650 mg Albuterol/Ipratropium (Duoneb Neb) 3 ml HHN Q4H [facility] Stop: 01/12/18 07:59 Last Admin: 11/14/17 18:47 Dose: 3 ml Amlodipine Besylate (Norvasc) 10 mg PO DAILY [facility] Stop: 01/09/18 08:59 Last Admin: 11/14/17 09:35 Dose: Not Given Aspirin (Aspirin Chewable) 81 mg PO DAILY [facility] Stop: 01/09/18 08:59 Last Admin: 11/14/17 09:35 Dose: Not Given Atorvastatin Calcium (Lipitor) 20 mg PO DAILY [facility] Stop: 01/09/18 08:59 Last Admin: 11/14/17 09:35 Dose: Not Given Cinacalcet (Sensipar) 60 mg PO DAILY [facility] Stop: 01/09/18 08:59 Last Admin: 11/14/17 09:35 Dose: Not Given Hydralazine HCl (Apresoline) 50 mg PO BID [facility] Stop: 01/09/18 08:59 Last Admin: 11/14/17 16:35 Dose: Not Given Hydralazine HCl (Apresoline 20 Mg/Ml) 10 mg IV Q6HR PRN PRN Reason: SBP>160 Stop: 01/10/18 11:39 Last Admin: 11/13/17 16:36 Dose: 10 mg Ceftriaxone Sodium 1 gm/ (Dextrose) 50 mls @ 100 mls/hr IV Q24H [facility] Stop: 01/10/18 00:59 Last Infusion: 11/14/17 00:41 Dose: Infused Albumin Human (Albuminar 25%) 25 gm in 100 mls @ 50 mls/hr IV PRN PRN PRN Reason: BP Support During HD Metronidazole (Flagyl) 500 mg in 100 mls @ 100 mls/hr IV Q8HR [facility] Stop: 01/10/18 20:59 Last Infusion: 11/14/17 17:51 Dose: Infused Amino Acids/ Dextrose 1,000 mls @ 60 mls/hr IV .[id number] [facility] Stop: 01/13/18 15:59 Last Infusion: 11/14/17 17:51 Dose: 60 mls/hr Isosorbide Dinitrate (Isordil) 20 mg PO DAILY [facility] Stop: 01/09/18 08:59 Last Admin: 11/14/17 09:36 Dose: Not Given Lorazepam (Ativan) 2 mg IVP Q3HR PRN; Protocol PRN Reason: Agitation Stop: 01/09/18 16:58 Last Admin: 11/13/17 23:34 Dose: 2 mg Metoclopramide HCl (Reglan) 5 mg PO TID PRN PRN Reason: GI DISTRESS Stop: 01/09/18 07:29 Metoprolol Tartrate (Lopressor) 25 mg PO BID [facility] Stop: 01/09/18 08:59 Last Admin: 11/14/17 16:35 Dose: Not Given Mirtazapine (Remeron) 7.5 mg PO HS [facility] PRN Reason: Protocol Stop: 01/09/18 20:59 Last Admin: 11/13/17 21:01 Dose: Not Given Miscellaneous (Ppn Per Pharmacy) 1 ea MC PRN PRN PRN Reason: PROTOCOL Stop: 01/12/18 13:55 Pantoprazole Sodium (Protonix) 40 mg IVP BID [facility] Stop: 01/10/18 16:59 Last Admin: 11/14/17 16:40 Dose: 40 mg Sucralfate (Carafate) 1 gm PO BID [facility] Stop: 01/10/18 16:59 Last Admin: 11/14/17 16:35 Dose: Not Given Vitamin B Complex/Vit C/Folic Acid (Vitamin B Complex W/Vitamin C) 1 tab PO DAILY [facility] Stop: 01/09/18 08:59 Last Admin: 11/14/17 09:36 Dose: Not Given General: no acute distress, cachectic HEENT: atraumatic, normocephalic, PERRLA, EOMI Neck: supple, no thyromegaly Cardiovascular: S1S2, regular Lungs: clear to auscultation bilaterally, clear to percussion Abdomen: soft, no tender, no distended Extremities: no cyanosis, no clubbing, no edema Neurological: other (drowsy) - Procedures Procedures: Procedures Procedure Code Date EGD DIAGNOSTIC BRUSH WASH 03569 11/10/17 INSPECTION OF UPPER INTESTINAL TRACT, ENDO [id number] 11/10/17 Infectious Disease Assmt/Plan - Assessment Assessment: 1. Leukocytosis. improved. 2. Colitis. 3. CKD 5 on HD. 4. DM2 5. HTN. 6. Encephalopathy. - Plan Plan: Continue PO levaquin and flagyl x 7 days.
[2017-11-15] MEDS: Albuterol/Ipratropium Neb 3 ML AERS HHN SCH ×3 (02:48→11:57)
[2017-11-15] MEDS: metroNIDAZOLE 500mg/NS 100mL 500 MG/100 ML BAG IV SCH ×2 (05:17→13:30)
--- NOTE | 2017-11-15 08:34 | General Progress Note ---
Subjective - Review of Systems Service Date: 11/15/17 Subjective: Patient is obtunded, responding to pain Objective - Results Result Diagrams: 11/14/17 06:15 11/14/17 06:15 Recent Labs: Laboratory Last Values WBC 7.3 Th/cmm (4.8-10.8) 11/14/17 06:15 RBC 3.14 Mil/cmm (4.30-5.70) L 11/14/17 06:15 Hgb 9.9 gm/dL (12-16) L 11/14/17 06:15 Hct 29.9 % (41.0-60) L 11/14/17 06:15 MCV 95.1 fl (80-99) 11/14/17 06:15 MCH 31.6 pg (26.0-30.0) H 11/14/17 06:15 MCHC Differential 33.3 pg (28.0-36.0) 11/14/17 06:15 RDW 13.7 % (11.5-20.0) 11/14/17 06:15 Plt Count 218 Th/cmm (150-400) 11/14/17 06:15 MPV 9.0 fl 11/14/17 06:15 Neutrophils % 73.3 % (40.0-80.0) 11/14/17 06:15 Band Neutrophils % 1 % (0-10) 11/11/17 07:56 Lymphocytes % 11.3 % (20.0-50.0) L 11/14/17 06:15 Monocytes % 12.4 % (2.0-10.0) H 11/14/17 06:15 Eosinophils % 0.3 % (0.0-5.0) 11/14/17 06:15 Basophils % 2.7 % (0.0-2.0) H 11/14/17 06:15 Neutrophils (Manual) 84 % (40-80) H 11/13/17 06:10 Lymphocytes 7 % (20-50) L 11/13/17 06:10 Monocytes 9 % (2-10) 11/13/17 06:10 Platelet Estimate ADEQUATE (NORMAL) 11/13/17 06:10 PT 10.5 SECONDS (9.5-11.5) 11/11/17 07:56 INR 1.01 (0.5-1.4) 11/11/17 07:56 PTT (Actin FS) 22.4 SECONDS (26.0-38.0) L 11/10/17 00:37 Sodium 140 mEq/L (136-145) 11/14/17 06:15 Potassium 3.6 mEq/L (3.5-5.1) 11/14/17 06:15 Chloride 101 mEq/L (98-107) 11/14/17 06:15 Carbon Dioxide 23.3 mEq/L (21.0-31.0) 11/14/17 06:15 Anion Gap 19.3 (7.0-16.0) H 11/14/17 06:15 BUN 38 mg/dL (7-25) H 11/14/17 06:15 Creatinine 10.2 mg/dL (0.7-1.3) H* 11/14/17 06:15 Est GFR ( Amer) 6.8 ml/min (>90) 11/14/17 06:15 Est GFR (Non-Af Amer) 5.6 ml/min 11/14/17 06:15 BUN/Creatinine Ratio 3.7 11/14/17 06:15 Glucose 119 mg/dL (70-105) H 11/14/17 06:15 POC Glucose 115 MG/DL (70 - 105) H 11/12/17 05:07 Whole Bld Lactic Acid 0.89 mmol/L (0.60-1.99) 11/10/17 00:37 Calcium 9.0 mg/dL (8.6-10.3) 11/14/17 06:15 Phosphorus 6.5 mg/dL (2.5-5.0) H 11/14/17 06:15 Magnesium 2.2 mg/dL (1.9-2.7) 11/14/17 06:15 Total Bilirubin 0.4 mg/dL (0.3-1.0) 11/14/17 06:15 AST 38 U/L (13-39) 11/14/17 06:15 ALT 23 U/L (7-52) 11/14/17 06:15 Alkaline Phosphatase 83 U/L (34-104) 11/14/17 06:15 Ammonia 24 umol/L (16-53) 11/10/17 17:06 Total Protein 6.5 gm/dL (6.0-8.3) 11/14/17 06:15 Albumin 3.3 gm/dL (4.2-5.5) L 11/14/17 06:15 Globulin 3.2 gm/dL 11/14/17 06:15 Albumin/Globulin Ratio 1.0 (1.0-1.8) 11/14/17 06:15 Lipase 52 U/L (11-82) 11/09/17 23:23 TSH 2.95 uIU/ml (0.34-5.60) 11/10/17 10:39 Urine Source RANDOM 11/09/17 23:40 Urine Color YELLOW 11/09/17 23:40 Urine Clarity CLOUDY (CLEAR) 11/09/17 23:40 Urine pH 7.0 (4.6 - 8.0) 11/09/17 23:40 Ur Specific [place] 1.020 (1.005-1.030) 11/09/17 23:40 Urine Protein >=300 mg/dL (NEGATIVE) 11/09/17 23:40 Urine Glucose (UA) 250 mg/dL (NEGATIVE) H 11/09/17 23:40 Urine Ketones NEGATIVE mg/dL (NEGATIVE) 11/09/17 23:40 Urine Blood LARGE (NEGATIVE) H 11/09/17 23:40 Urine Nitrate NEGATIVE (NEGATIVE) 11/09/17 23:40 Urine Bilirubin NEGATIVE (NEGATIVE) 11/09/17 23:40 Urine Urobilinogen 0.2 E.U./dL (0.2 - 1.0) 11/09/17 23:40 Ur Leukocyte Esterase SMALL (NEGATIVE) H 11/09/17 23:40 Urine RBC 5-10 /hpf (0-5) H 11/09/17 23:40 Urine WBC 2-5 /hpf (0-5) 11/09/17 23:40 Ur Epithelial Cells OCCASIONAL /lpf (FEW) 11/09/17 23:40 Urine Bacteria FEW /hpf (NONE SEEN) 11/09/17 23:40 Other Casts 0-2 /LPF (NONE SEEN) 11/09/17 23:40 - Physical Exam Vitals and I&O: Vital Signs Temp 97.7 F 11/15/17 04:00 Pulse 96 11/15/17 04:00 Resp 19 11/15/17 04:00 BP 132/52 11/15/17 04:00 Pulse Ox 96 11/15/17 04:00 Intake & Output 11/14/17 11/15/17 11/15/17 18:59 06:59 18:59 Intake Total 1174 100 Balance 1174 100 Weight (lbs) 56.336 kg Intake: Intake, IV Amount 1174 100 Amino Acids 4.25% /Dext 74 10% 500 ml Dextrose 10% 500 ml @ 60 mls/hr IV . [id number] [facility] Rx#:[id number] D5-0.45NS 1,000 ml @ 75 1000 mls/hr IV .[id number] [facility] Rx #:[id number] metroNIDAZOLE 500mg/NS 100 100 100mL 500 mg In 100 ml @ 100 mls/hr IV Q8HR [facility] Rx #:[id number] Oral 0 Other: # Voids 0 # Bowel Movements 3 Stool Characteristics Soft Soft Brown Brown Weight Source Bedscale Active Medications: Current Medications Acetaminophen (Tylenol 650mg Supp) 650 mg RC Q4H PRN PRN Reason: Fever > 100 Stop: 01/13/18 16:57 Last Admin: 11/14/17 17:33 Dose: 650 mg Albuterol/Ipratropium (Duoneb Neb) 3 ml HHN Q4H [facility] Stop: 01/12/18 07:59 Last Admin: 11/15/17 07:18 Dose: 3 ml Amlodipine Besylate (Norvasc) 10 mg PO DAILY [facility] Stop: 01/09/18 08:59 Last Admin: 11/14/17 09:35 Dose: Not Given Aspirin (Aspirin Chewable) 81 mg PO DAILY [facility] Stop: 01/09/18 08:59 Last Admin: 11/14/17 09:35 Dose: Not Given Atorvastatin Calcium (Lipitor) 20 mg PO DAILY [facility] Stop: 01/09/18 08:59 Last Admin: 11/14/17 09:35 Dose: Not Given Cinacalcet (Sensipar) 60 mg PO DAILY [facility] Stop: 01/09/18 08:59 Last Admin: 11/14/17 09:35 Dose: Not Given Hydralazine HCl (Apresoline) 50 mg PO BID [facility] Stop: 01/09/18 08:59 Last Admin: 11/14/17 16:35 Dose: Not Given Hydralazine HCl (Apresoline 20 Mg/Ml) 10 mg IV Q6HR PRN PRN Reason: SBP>160 Stop: 01/10/18 11:39 Last Admin: 11/13/17 16:36 Dose: 10 mg Ceftriaxone Sodium 1 gm/ (Dextrose) 50 mls @ 100 mls/hr IV Q24H [facility] Stop: 01/10/18 00:59 Last Admin: 11/15/17 00:56 Dose: 100 mls/hr Albumin Human (Albuminar 25%) 25 gm in 100 mls @ 50 mls/hr IV PRN PRN PRN Reason: BP Support During HD Metronidazole (Flagyl) 500 mg in 100 mls @ 100 mls/hr IV Q8HR [facility] Stop: 01/10/18 20:59 Last Admin: 11/15/17 05:17 Dose: 100 mls/hr Amino Acids/ Dextrose 1,000 mls @ 60 mls/hr IV .[id number] [facility] Stop: 01/13/18 15:59 Last Infusion: 11/14/17 17:51 Dose: 60 mls/hr Isosorbide Dinitrate (Isordil) 20 mg PO DAILY [facility] Stop: 01/09/18 08:59 Last Admin: 11/14/17 09:36 Dose: Not Given Lorazepam (Ativan) 2 mg IVP Q3HR PRN; Protocol PRN Reason: Agitation Stop: 01/09/18 16:58 Last Admin: 11/13/17 23:34 Dose: 2 mg Metoclopramide HCl (Reglan) 5 mg PO TID PRN PRN Reason: GI DISTRESS Stop: 01/09/18 07:29 Metoprolol Tartrate (Lopressor) 25 mg PO BID [facility] Stop: 01/09/18 08:59 Last Admin: 11/14/17 16:35 Dose: Not Given Mirtazapine (Remeron) 7.5 mg PO HS [facility] PRN Reason: Protocol Stop: 01/09/18 20:59 Last Admin: 11/14/17 20:18 Dose: Not Given Miscellaneous (Ppn Per Pharmacy) 1 ea MC PRN PRN PRN Reason: PROTOCOL Stop: 01/12/18 13:55 Pantoprazole Sodium (Protonix) 40 mg IVP BID [facility] Stop: 01/10/18 16:59 Last Admin: 11/14/17 16:40 Dose: 40 mg Sucralfate (Carafate) 1 gm PO BID [facility] Stop: 01/10/18 16:59 Last Admin: 11/14/17 16:35 Dose: Not Given Vitamin B Complex/Vit C/Folic Acid (Vitamin B Complex W/Vitamin C) 1 tab PO DAILY [facility] Stop: 01/09/18 08:59 Last Admin: 11/14/17 09:36 Dose: Not Given General: Alert, No acute distress, Other (Confused, agitated) HEENT: Atraumatic, Other (Legally Blind) Neck: Supple, +2 carotid pulse wo bruit Cardiovascular: Regular rate, Normal S1, Normal S2 Lungs: Other (Bilateral decreased air entry and ronchi.) Abdomen: Bowel sounds, Soft, no Hepatomegaly, no Splenomegaly, no Rebound, no Mass, no Guarding Extremities: Other (No edema), no Edema Neurological: Sensation intact, Other (Non ambulatory) Skin: no Rash Psych/Mental Status: Other (Confused, not oriented, restless) - Procedures Procedures: Procedures Procedure Code Date EGD DIAGNOSTIC BRUSH WASH 09528 11/10/17 INSPECTION OF UPPER INTESTINAL TRACT, ENDO [id number] 11/10/17 Assessment/Plan - Assessment Assessment: Patient is obtunded, responding only to pain. Case discussed with family and they decided to put patient in hospice. Dx: [place] hemesis secondary to esophagitis, UTI, Leukocytosis, Chronic anemia, HTN, DM, ESRD on HD, Seizure disorder, Thyroid disorder Uremic encephalopathy. - Plan Plan: Patient in IV NS, AB, Breathing treatment, continue with SNF meds. Follow by Nephro, GI, and ID. Family stated that patient is DNR. After HD patient will be discharge to SNF and there will be waiting the hospice company that already contact family. Will continue to monitor.
[2017-11-15] MEDS: Aspirin 81mg Chewable Tab PO SCH (08:46)
[2017-11-15] MEDS: Atorvastatin Calcium 10 MG TAB PO SCH (08:46)
[2017-11-15] MEDS: Vitamin B Complex w/Vitamin C Tab PO SCH (08:47)
[2017-11-15 10:15] LABS: % BASOPHILS 0.8 % (0.0-2.0); % EOSINOPHILS 0.3 % (0.0-5.0); % LYMPHOCYTES 8.1 % (20.0-50.0); % MONOCYTES 9.3 % (2.0-10.0); % NEUTROPHILS 81.5 % (40.0-80.0); BASOPHILE ABSOLUTE 0.1 Th/cumm (0-0.2); HEMATOCRIT 30.2 % (41.0-60); HEMOGLOBIN 10.2 gm/dL (12-16); LYMPHOCYTE ABSOLUTE 0.7 Th/cmm (1.5-3.0); MEAN CELL VOLUME 95.3 fl (80-99); MEAN CORPUSCULAR HEMOGLOBIN 32.2 pg (26.0-30.0); MEAN CORPUSCULAR HGB CONC 33.7 pg (28.0-36.0); MEAN PLATELET VOLUME 8.5 fl; MONOCYTE ABSOLUTE 0.8 Th/cmm (0.3-1.0); PLATELET COUNT 220 Th/cmm (150-400); RED BLOOD COUNT 3.17 Mil/cmm (4.30-5.70); WHITE BLOOD COUNT 8.6 Th/cmm (4.8-10.8)
[2017-11-15 10:25] LABS: ALBUMIN 3.4 gm/dL (4.2-5.5); ANION GAP 20.7 (7.0-16.0); BILIRUBIN,TOTAL 0.4 mg/dL (0.3-1.0); CALCIUM SERUM 9.2 mg/dL (8.6-10.3); CARBON DIOXIDE 19.9 mEq/L (21.0-31.0); GFR AFRICAN-AMERICAN 5.6 ml/min (>90); GFR NON AFRICAN-AMERICAN 4.6 ml/min; MAGNESIUM 2.4 mg/dL (1.9-2.7); PHOSPHOROUS 6.5 mg/dL (2.5-5.0); POTASSIUM SERUM 3.6 mEq/L (3.5-5.1); TOTAL PROTEIN,SERUM 6.7 gm/dL (6.0-8.3)
[2017-11-15 10:28] LABS: CREATININE - SERUM 12.1 mg/dL (0.7-1.3)
[2017-11-15] MEDS ORDERED: Labetalol 5 mg/mL 20 mL Vial IVP ONE (15:09)
--- NOTE | 2017-11-15 16:08 | Infectious Disease Prog Note ---
Infectious Disease Subjective - Review of Systems Service Date: 11/15/17 Subjective: There is no new change, there is no fever. Infectious Disease Objective - Results Result Diagrams: 11/15/17 09:50 11/15/17 09:50 Recent Labs: Laboratory Last Values WBC 8.6 Th/cmm (4.8-10.8) 11/15/17 09:50 RBC 3.17 Mil/cmm (4.30-5.70) L 11/15/17 09:50 Hgb 10.2 gm/dL (12-16) L 11/15/17 09:50 Hct 30.2 % (41.0-60) L 11/15/17 09:50 MCV 95.3 fl (80-99) 11/15/17 09:50 MCH 32.2 pg (26.0-30.0) H 11/15/17 09:50 MCHC Differential 33.7 pg (28.0-36.0) 11/15/17 09:50 RDW 14.0 % (11.5-20.0) 11/15/17 09:50 Plt Count 220 Th/cmm (150-400) 11/15/17 09:50 MPV 8.5 fl 11/15/17 09:50 Neutrophils % 81.5 % (40.0-80.0) H 11/15/17 09:50 Band Neutrophils % 1 % (0-10) 11/11/17 07:56 Lymphocytes % 8.1 % (20.0-50.0) L 11/15/17 09:50 Monocytes % 9.3 % (2.0-10.0) 11/15/17 09:50 Eosinophils % 0.3 % (0.0-5.0) 11/15/17 09:50 Basophils % 0.8 % (0.0-2.0) 11/15/17 09:50 Neutrophils (Manual) 84 % (40-80) H 11/13/17 06:10 Lymphocytes 7 % (20-50) L 11/13/17 06:10 Monocytes 9 % (2-10) 11/13/17 06:10 Platelet Estimate ADEQUATE (NORMAL) 11/13/17 06:10 PT 10.5 SECONDS (9.5-11.5) 11/11/17 07:56 INR 1.01 (0.5-1.4) 11/11/17 07:56 PTT (Actin FS) 22.4 SECONDS (26.0-38.0) L 11/10/17 00:37 Sodium 139 mEq/L (136-145) 11/15/17 09:50 Potassium 3.6 mEq/L (3.5-5.1) 11/15/17 09:50 Chloride 102 mEq/L (98-107) 11/15/17 09:50 Carbon Dioxide 19.9 mEq/L (21.0-31.0) L 11/15/17 09:50 Anion Gap 20.7 (7.0-16.0) H 11/15/17 09:50 BUN 44 mg/dL (7-25) H 11/15/17 09:50 Creatinine 12.1 mg/dL (0.7-1.3) H* 11/15/17 09:50 Est GFR ( Amer) 5.6 ml/min (>90) 11/15/17 09:50 Est GFR (Non-Af Amer) 4.6 ml/min 11/15/17 09:50 BUN/Creatinine Ratio 3.6 11/15/17 09:50 Glucose 176 mg/dL (70-105) H 11/15/17 09:50 POC Glucose 115 MG/DL (70 - 105) H 11/12/17 05:07 Whole Bld Lactic Acid 0.89 mmol/L (0.60-1.99) 11/10/17 00:37 Calcium 9.2 mg/dL (8.6-10.3) 11/15/17 09:50 Phosphorus 6.5 mg/dL (2.5-5.0) H 11/15/17 09:50 Magnesium 2.4 mg/dL (1.9-2.7) 11/15/17 09:50 Total Bilirubin 0.4 mg/dL (0.3-1.0) 11/15/17 09:50 AST 28 U/L (13-39) 11/15/17 09:50 ALT 20 U/L (7-52) 11/15/17 09:50 Alkaline Phosphatase 84 U/L (34-104) 11/15/17 09:50 Ammonia 24 umol/L (16-53) 11/10/17 17:06 Total Protein 6.7 gm/dL (6.0-8.3) 11/15/17 09:50 Albumin 3.4 gm/dL (4.2-5.5) L 11/15/17 09:50 Globulin 3.3 gm/dL 11/15/17 09:50 Albumin/Globulin Ratio 1.0 (1.0-1.8) 11/15/17 09:50 Triglycerides 68 mg/dL (<150) 11/15/17 09:50 Cholesterol 102 mg/dL (<200) 11/15/17 09:50 Lipase 52 U/L (11-82) 11/09/17 23:23 TSH 0.78 uIU/ml (0.34-5.60) 11/15/17 09:50 Urine Source RANDOM 11/09/17 23:40 Urine Color YELLOW 11/09/17 23:40 Urine Clarity CLOUDY (CLEAR) 11/09/17 23:40 Urine pH 7.0 (4.6 - 8.0) 11/09/17 23:40 Ur Specific [place] 1.020 (1.005-1.030) 11/09/17 23:40 Urine Protein >=300 mg/dL (NEGATIVE) 11/09/17 23:40 Urine Glucose (UA) 250 mg/dL (NEGATIVE) H 11/09/17 23:40 Urine Ketones NEGATIVE mg/dL (NEGATIVE) 11/09/17 23:40 Urine Blood LARGE (NEGATIVE) H 11/09/17 23:40 Urine Nitrate NEGATIVE (NEGATIVE) 11/09/17 23:40 Urine Bilirubin NEGATIVE (NEGATIVE) 11/09/17 23:40 Urine Urobilinogen 0.2 E.U./dL (0.2 - 1.0) 11/09/17 23:40 Ur Leukocyte Esterase SMALL (NEGATIVE) H 11/09/17 23:40 Urine RBC 5-10 /hpf (0-5) H 11/09/17 23:40 Urine WBC 2-5 /hpf (0-5) 11/09/17 23:40 Ur Epithelial Cells OCCASIONAL /lpf (FEW) 11/09/17 23:40 Urine Bacteria FEW /hpf (NONE SEEN) 11/09/17 23:40 Other Casts 0-2 /LPF (NONE SEEN) 11/09/17 23:40 - Physical Exam Vitals and I&O: Vital Signs Temp 98.3 F 11/15/17 12:54 Pulse 105 11/15/17 15:24 Resp 18 11/15/17 12:54 BP 178/90 11/15/17 15:24 Pulse Ox 97 11/15/17 12:54 Intake & Output 11/14/17 11/15/17 11/15/17 18:59 06:59 18:59 Intake Total 1174 100 250 Balance 1174 100 250 Weight (lbs) 56.336 kg Intake: Intake, IV Amount 1174 100 250 Amino Acids 4.25% /Dext 74 10% 500 ml Dextrose 10% 500 ml @ 60 mls/hr IV . [id number] [facility] Rx#:[id number] D5-0.45NS 1,000 ml @ 75 1000 mls/hr IV .[id number] [facility] Rx #:[id number] cefTRIAXone 1 gm In 50 Dextrose 5% 50 ml @ 100 mls/hr IV Q24H [facility] Rx#: [id number] metroNIDAZOLE 500mg/NS 100 100 200 100mL 500 mg In 100 ml @ 100 mls/hr IV Q8HR [facility] Rx #:[id number] Oral 0 Other: # Voids 0 # Bowel Movements 3 Stool Characteristics Soft Soft Soft Brown Brown Brown Weight Source Bedscale Active Medications: Current Medications Acetaminophen (Tylenol 650mg Supp) 650 mg RC Q4H PRN PRN Reason: Fever > 100 Stop: 01/13/18 16:57 Last Admin: 11/14/17 17:33 Dose: 650 mg Albuterol/Ipratropium (Duoneb Neb) 3 ml HHN Q4H [facility] Stop: 01/12/18 07:59 Last Admin: 11/15/17 11:57 Dose: 3 ml Amlodipine Besylate (Norvasc) 10 mg PO DAILY [facility] Stop: 01/09/18 08:59 Last Admin: 11/15/17 08:45 Dose: Not Given Aspirin (Aspirin Chewable) 81 mg PO DAILY [facility] Stop: 01/09/18 08:59 Last Admin: 11/15/17 08:46 Dose: Not Given Atorvastatin Calcium (Lipitor) 20 mg PO DAILY [facility] Stop: 01/09/18 08:59 Last Admin: 11/15/17 08:46 Dose: Not Given Cinacalcet (Sensipar) 60 mg PO DAILY [facility] Stop: 01/09/18 08:59 Last Admin: 11/15/17 08:46 Dose: Not Given Hydralazine HCl (Apresoline) 50 mg PO BID [facility] Stop: 01/09/18 08:59 Last Admin: 11/15/17 08:46 Dose: Not Given Hydralazine HCl (Apresoline 20 Mg/Ml) 10 mg IV Q6HR PRN PRN Reason: SBP>160 Stop: 01/10/18 11:39 Last Admin: 11/13/17 16:36 Dose: 10 mg Ceftriaxone Sodium 1 gm/ (Dextrose) 50 mls @ 100 mls/hr IV Q24H [facility] Stop: 01/10/18 00:59 Last Infusion: 11/15/17 08:48 Dose: Infused Metronidazole (Flagyl) 500 mg in 100 mls @ 100 mls/hr IV Q8HR [facility] Stop: 01/10/18 20:59 Last Infusion: 11/15/17 14:00 Dose: Infused Amino Acids/ Dextrose 1,000 mls @ 60 mls/hr IV .[id number] [facility] Stop: 01/13/18 15:59 Last Infusion: 11/14/17 17:51 Dose: 60 mls/hr Isosorbide Dinitrate (Isordil) 20 mg PO DAILY [facility] Stop: 01/09/18 08:59 Last Admin: 11/15/17 08:46 Dose: Not Given Lorazepam (Ativan) 2 mg IVP Q3HR PRN; Protocol PRN Reason: Agitation Stop: 01/09/18 16:58 Last Admin: 11/13/17 23:34 Dose: 2 mg Metoclopramide HCl (Reglan) 5 mg PO TID PRN PRN Reason: GI DISTRESS Stop: 01/09/18 07:29 Metoprolol Tartrate (Lopressor) 25 mg PO BID [facility] Stop: 01/09/18 08:59 Last Admin: 11/15/17 08:47 Dose: Not Given Mirtazapine (Remeron) 7.5 mg PO HS [facility] PRN Reason: Protocol Stop: 01/09/18 20:59 Last Admin: 11/14/17 20:18 Dose: Not Given Miscellaneous (Ppn Per Pharmacy) 1 ea MC PRN PRN PRN Reason: PROTOCOL Stop: 01/12/18 13:55 Pantoprazole Sodium (Protonix) 40 mg IVP BID [facility] Stop: 01/10/18 16:59 Last Admin: 11/15/17 14:50 Dose: 40 mg Sucralfate (Carafate) 1 gm PO BID [facility] Stop: 01/10/18 16:59 Last Admin: 11/15/17 08:47 Dose: Not Given Vitamin B Complex/Vit C/Folic Acid (Vitamin B Complex W/Vitamin C) 1 tab PO DAILY [facility] Stop: 01/09/18 08:59 Last Admin: 11/15/17 08:47 Dose: Not Given General: no acute distress, well developed, well nourished HEENT: atraumatic, normocephalic, PERRLA, EOMI, moist mucous membrane Neck: supple Cardiovascular: S1S2, regular Lungs: clear to auscultation bilaterally, clear to percussion Abdomen: soft, no tender, no distended, no mass Extremities: no cyanosis, no clubbing, no edema Neurological: awake, alert Skin: intact - Procedures Procedures: Procedures Procedure Code Date EGD DIAGNOSTIC BRUSH WASH 23637 11/10/17 INSPECTION OF UPPER INTESTINAL TRACT, ENDO [id number] 11/10/17 Infectious Disease Assmt/Plan - Assessment Assessment: 1. Leukocytosis. improved. 2. Colitis. 3. CKD 5 on HD. 4. DM2 5. HTN. 6. Encephalopathy. - Plan Plan: Continue PO levaquin and flagyl x 7 days.
--- NOTE | 2017-11-17 11:20 | Discharge Summary ---
General Discharge Summary - Discharge Summary Date of Admission: 11/09/17 Admitting Diagnosis: Coffe grong hemesis secondary to Esophagitis, Sepsis, UTI, Chronic anemia, Discharge Diagnosis: Sepsis, UTI, Esophagitis, Chronic anemia, HTN, DM, ESRD on HD, Thyroid disorder, Uremic encephalopathy. Hospital Course: Patient was hospitalized, but he do not respoded to treatment, his condition got worse. Treatment: Patient was started in IV NS, IV AB, NPO, he was continue with SNF meds, HD 3 times a week, He was follow by Nephro, ID, and GI. Patient did not responded to treatment. Family did not wanted a G-tube placement, and for family decision he was discharge with Hospice services. Condition at Discharge: Critical Disposition: Discharge/Transfered to SNF Home Medications: Home Medication Medication Instructions Recorded Type Aspirin 81 mg PO DAILY 11/09/17 History Atorvastatin Calcium [Lipitor] 20 mg PO DAILY 11/09/17 History Cinacalcet HCl [Sensipar] 60 mg PO DAILY 11/09/17 History Folic Acid/Vit Bcomp,C 1 tab PO DAILY 11/09/17 History [Nephro-Alcon Tablet] Hydralazine HCl 50 mg PO BID 11/09/17 History Isosorbide Dinitrate 20 mg PO DAILY 11/09/17 History Metoclopramide [Reglan] 5 mg PO TID PRN 11/09/17 History Metoprolol Tartrate 25 mg PO BID 11/09/17 History Mirtazapine [Remeron] 7.5 mg PO HS 11/09/17 History Pantoprazole [Protonix] 40 mg PO DAILY 11/09/17 History amLODIPine Besylate [Norvasc*] 10 mg PO DAILY 11/09/17 History Activity: Bed Rest Discharge Diet: Other (NPO) Consults and Follow-Up: Ryan Swan [Primary Care Provider] - Consulting Speciality: Other (Hospice services.) Instructions: Hematemesis, Type 2 Diabetes Mellitus, Adult, Anemia, Nonspecific -Brief, Dysphagia, Urinary Tract Infection, [id number], Hypertension
== END 2017-11-15 15:45 | disposition hospice, inpatient (51) | DRG 871 ==
LOC: ER 23:00 → MSI 11-10 01:45
PROVIDERS: ADMIT General Practice; ATTEND General Practice
PROC: 5A1D70Z Performance of Urinary Filtration, Intermittent, Less than 6 Hours Per Day (ICD-10-PCS; 2017-11-10)
PROC: 0DJ08ZZ Inspection of Upper Intestinal Tract, Via Natural or Artificial Opening Endoscopic (ICD-10-PCS; principal; 2017-11-11)
PROC: 5A1D70Z Performance of Urinary Filtration, Intermittent, Less than 6 Hours Per Day (ICD-10-PCS; 2017-11-12)
DX: A41.9 Sepsis, unspecified organism (principal); N18.6 End stage renal disease; G93.49 Other encephalopathy; E44.0 Moderate protein-calorie malnutrition; N39.0 Urinary tract infection, site not specified; Z68.1 Body mass index [BMI] 19.9 or less, adult; I13.2 Hypertensive heart and chronic kidney disease with heart failure and with stage 5 chronic kidney disease, or end stage renal disease; K92.0 Hematemesis; K20.9 Esophagitis, unspecified; E11.22 Type 2 diabetes mellitus with diabetic chronic kidney disease; D64.9 Anemia, unspecified; Z99.2 Dependence on renal dialysis; G40.909 Epilepsy, unspecified, not intractable, without status epilepticus; I25.10 Atherosclerotic heart disease of native coronary artery without angina pectoris; I50.9 Heart failure, unspecified; Z66 Do not resuscitate; G30.9 Alzheimer's disease, unspecified; F02.80 Dementia in other diseases classified elsewhere, unspecified severity, without behavioral disturbance, psychotic disturbance, mood disturbance, and anxiety; E03.9 Hypothyroidism, unspecified; K29.80 Duodenitis without bleeding; K29.70 Gastritis, unspecified, without bleeding; F32.9 Major depressive disorder, single episode, unspecified; K52.9 Noninfective gastroenteritis and colitis, unspecified; K44.9 Diaphragmatic hernia without obstruction or gangrene; Z90.49 Acquired absence of other specified parts of digestive tract
CPT/HCPCS: 36415-UA; 71045-TC; 80053-TC; 81001-TC; 81003-TC; 82140-TC; 82465-TC; 82948-90; 83605; 83690-TC; 83735-TC; 84100-TC; 84134-90; 84443-TC; 84478-TC; 85007-TC; 85025-TC; 85027-TC; 85610-TC; 90799; 90937; 93005; 94760; C9113; J0360; J0696; J2060; J3480; J7030; X3401; Z7610